=== PATIENT | male | born 1965 | race Caucasian/White ===

== ENCOUNTER 2016-07-10 13:04 | Emergency (ER) | payer SELFPAY ==
[~2016-07-10] VITALS: Ht 177.8 cm; Wt 65.0 kg
[2016-07-10 13:11] VITALS: BP 129/91; PULSE 95; RESP 16; TEMP 98.6; O2SAT 96
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
[2016-07-10] MEDS ORDERED: TETANUS/DIPHTHERIA TOXOID ADULT 0.5 ML VIAL IM ONE (13:30)
[2016-07-10 13:47] LABS: AUTOMATED NEUTROPHIL # 4.7 TH/MM3 (1.8-7.7); BASOPHIL % 0.4 % (0.0-2.0); EOSINOPHIL # 0.4 TH/MM3 (0-0.4); EOSINOPHIL % 3.7 % (0.0-4.0); HEMATOCRIT 37.9 % (39.0-51.0); HEMO FLAGS DIFF FINAL; LYMPH % 41.3 % (9.0-44.0); LYMPHOCYTE # 4.1 TH/MM3 (1.0-4.8); MEAN CELL VOLUME 83.8 FL (80.0-100.0); MEAN CORPUSCULAR HEMOGLOBIN 27.5 PG (27.0-34.0); MEAN CORPUSCULAR HGB CONC 32.8 % (32.0-36.0); MONO % 6.6 % (0.0-8.0); PLATELET COUNT 418 TH/MM3 (150-450); RED BLOOD COUNT 4.52 MIL/MM3 (4.50-5.90); RED CELL DISTRIBUTION WIDTH 16.3 % (11.6-17.2); WHITE BLOOD COUNT 9.8 TH/MM3 (4.0-11.0)
[2016-07-10] MEDS ORDERED: BUSP10TA PO (13:47)
[2016-07-10 14:00] LABS: ALT (GPT) 17 U/L (12-78); ANION GAP 11 MEQ/L (5-15); AST (GOT) 13 U/L (15-37); BICARBONATE 23.3 MEQ/L (21.0-32.0); BLOOD UREA NITROGEN 10 MG/DL (7-18); CHLORIDE 103 MEQ/L (98-107); GLOMERULAR FILTRATION RATE 112 ML/MIN (>89); POTASSIUM 3.8 MEQ/L (3.5-5.1); SODIUM (NA) 137 MEQ/L (136-145)
[2016-07-10 14:03] LABS: ALKALINE PHOSPHATASE 69 U/L (45-117); TOTAL BILIRUBIN ADULT 0.7 MG/DL (0.2-1.0)
[2016-07-10 14:50] VITALS: BP 130/89; PULSE 90; RESP 18; TEMP 98.1; O2SAT 97
[2016-07-10 17:56] VITALS: BP 101/66; PULSE 94; RESP 18; O2SAT 98
[2016-07-10 23:11] VITALS: BP 125/84; PULSE 99; RESP 18; O2SAT 100
[2016-07-11 02:00] VITALS: BP 135/95; PULSE 80; RESP 18; O2SAT 96
== END 2016-07-11 02:54 ==
LOC: NEDAMB 13:04 → NEPJ 07-11 02:54
DX: R45.851 Suicidal ideations (principal); I10 Essential (primary) hypertension; F10.129 Alcohol abuse with intoxication, unspecified
CPT/HCPCS: 80053; 80307; 80320; 85025; 99285

== ENCOUNTER 2016-09-30 20:24 | Inpatient (IN) | payer SELFPAY ==
[~2016-09-30] VITALS: Ht 180.3 cm; Wt 58.4 kg
[2016-09-30 19:54] VITALS: PULSE 81
[~2016-09-30 20:24] MED LIST: BUSP10TA PO
[2016-09-30 20:26] VITALS: BP 121/89; PULSE 93; RESP 16; TEMP 97.8; O2SAT 97
[2016-09-30] MEDS ORDERED: SODIUM CHLOR 0.9% 1000 ML INJ 1,000 ML IV SCH (22:33)
[2016-09-30] MEDS ORDERED: SODIUM CHLORIDE 0.9% FLUSH 10 ML FLUSH IV FLUSH PRN (22:45)
[2016-09-30] MEDS ORDERED: MORPHINE SULFATE 4 MG/ML INJ IV PUSH ONE (22:45)
[2016-09-30] MEDS ORDERED: ONDANSETRON HCL 4 MG/2 ML VIAL IVP ONE (22:45)
[2016-09-30 23:00] LABS: AUTOMATED NEUTROPHIL # 4.9 TH/MM3 (1.8-7.7); BASOPHIL % 0.1 % (0.0-2.0); EOSINOPHIL % 0.4 % (0.0-4.0); HEMATOCRIT 40.1 % (39.0-51.0); HEMO FLAGS DIFF FINAL; LYMPH % 23.5 % (9.0-44.0); LYMPHOCYTE # 1.7 TH/MM3 (1.0-4.8); MEAN CELL VOLUME 83.9 FL (80.0-100.0); MEAN CORPUSCULAR HEMOGLOBIN 28.5 PG (27.0-34.0); MEAN CORPUSCULAR HGB CONC 33.9 % (32.0-36.0); MONO % 8.6 % (0.0-8.0); NEUT % 67.4 % (16.0-70.0); PLATELET COUNT 236 TH/MM3 (150-450); RED BLOOD COUNT 4.78 MIL/MM3 (4.50-5.90); RED CELL DISTRIBUTION WIDTH 15.5 % (11.6-17.2); WHITE BLOOD COUNT 7.3 TH/MM3 (4.0-11.0)
--- NOTE | 2016-09-30 23:09 | PD ---
HPI Chief Complaint: GI Complaint Time Seen by Provider: 22:24 Travel History International Travel<30 days: No Contact w/Intl Traveler<30days: No Traveled to known affect area: No History of Present Illness HPI The patient is a 50-year-old male who presents to the emergency department for chills and perianal pain. The patient is a 2 day history of intermittent chills and sweats. He then developed some perianal pain with several episodes of leakage from the rectum. The patient denies any trauma to the perirectal area and denies any history of anal sex or rectal prolapse. The patient states the pain is burning in the perirectal area and is continuous leakage from the rectum. He does complain of chills but denies any outright fever. He does complain of mild nausea but denies any vomiting or anterior abdominal pain. Symptoms are moderate, there are no current alleviating or exacerbating factors. The patient denies any chronic medical problems, medications, states his only allergy is to penicillin. PFSH Past Medical History Anxiety: Yes Cardiovascular Problems: Yes (HTN) Diminished Hearing: No Hypertension: Yes Psychiatric: Yes (ANXIETY, OCD, SOCIAL DISORDER.) Past Surgical History Ear Surgery: Yes Social History Alcohol Use: Yes (REGULARLY 4 beers night. ) Tobacco Use: No Substance Use: Yes (BEER. CAN NOT SAY HOW MUCH DAILY) Allergies-Medications (Allergen,Severity, Reaction): Coded Allergies: Penicillin (Verified Allergy, Intermediate, 09/30/16) Reported Meds & Prescriptions Reported Meds & Active Scripts Active Reported Buspirone (Buspirone HCl) 10 Mg Tab 10 Mg PO DAILY Review of Systems Except as stated in HPI: all other systems reviewed are Neg General / Constitutional: Positive: Chills, No: Fever Cardiovascular: No: Chest Pain or Discomfort Respiratory: No: Shortness of Breath Gastrointestinal: Positive: Nausea, Diarrhea, Changes in Bowel Habits, Other ( perirectal pain is noted), No: Vomiting, Abdominal Pain Genitourinary: No: Dysuria Musculoskeletal: Positive: Myalgias Physical Exam Narrative GENERAL: Awake, alert, 50-year-old male appears his stated age and is in no acute respiratory distress. Mildly cachectic. SKIN: No rashes or lesions. HEAD: Atraumatic. Normocephalic. EYES: No injection or drainage. ENT: No nasal bleeding or discharge. Mucous membranes pink and moist. NECK: Trachea midline. No JVD. CARDIOVASCULAR: Regular rate and rhythm. No murmur appreciated. RESPIRATORY: No accessory muscle use. Clear to auscultation. Breath sounds equal bilaterally. GASTROINTESTINAL: Abdomen soft, non-tender, nondistended. No rebound tenderness. Rectal: Patient has a circumferential, edematous area that appears to prolapsed through the rectum, exquisitely tender to palpation, appears to be possible thrombosed hemorrhoid at the 3 o'clock position. Anal leakage noted through the opening, exquisitely tender to palpation. Unable to reduce. Rectal exam exquisitely tender, positive tone. MUSCULOSKELETAL: No obvious deformities. No clubbing. No cyanosis. No edema. NEUROLOGICAL: Awake and alert. No obvious cranial nerve deficits. Motor grossly within normal limits. Normal speech. PSYCHIATRIC: Appropriate mood and affect; insight and judgment normal. Data Data Last Documented VS Vital Signs Date Time Temp Pulse Resp B/P Pulse Ox O2 Delivery O2 Flow Rate FiO2 09/30/16 20:26 97.8 93 16 121/89 97 Orders Complete Blood Count With Diff (09/30/16 22:33) Comprehensive Metabolic Panel (09/30/16 22:33) Lactic Acid (09/30/16 22:33) Prothrombin Time / Inr (Pt) (09/30/16 22:33) Act Partial Throm Time (Ptt) (09/30/16 22:33) Iv Access Insert/Monitor (09/30/16 22:33) Ecg Monitoring (09/30/16 22:33) Oximetry (09/30/16 22:33) Morphine Inj (Morphine Inj) (09/30/16 22:45) Ondansetron Inj (Zofran Inj) (09/30/16 22:45) Sodium Chlor 0.9% 1000 Ml Inj (Ns 1000 M (09/30/16 22:33) Sodium Chloride 0.9% Flush (Ns Flush) (09/30/16 22:45) Ct Abd/Pel W Iv Contrast(Rout) (09/30/16 ) Iohexol 350 Inj (Omnipaque 350 Inj) (09/30/16 23:15) Ciprofloxacin 400 Mg Premix (Cipro 400 M (09/30/16 23:45) Metronidazole 500 Mg Inj (Flagyl 500 Mg (09/30/16 23:45) Blood Culture (09/30/16 23:35) Sodium Chlor 0.9% 1000 Ml Inj (Ns 1000 M (09/30/16 23:45) Admit To Inpatient (09/30/16 ) Vital Signs (Adult) Q4H (09/30/16 23:58) Activity Oob With Assistance (09/30/16 23:58) Intake + Output RUPESH.QSHIFT (09/30/16 23:58) Sodium Chlor 0.9% 1000 Ml Inj (Ns 1000 M (09/30/16 23:58) Sodium Chloride 0.9% Flush (Ns Flush) (10/01/16 00:00) Sodium Chloride 0.9% Flush (Ns Flush) (10/01/16 09:00) Ondansetron Inj (Zofran Inj) (10/01/16 00:00) Comprehensive Metabolic Panel (10/01/16 06:00) Complete Blood Count With Diff (10/01/16 06:00) Pt Request For Service (09/30/16 23:58) Case Management Consult (09/30/16 23:58) Scd Bilateral/Knee High RUPESH.BID (09/30/16 23:58) Oxycodone (Roxicodone) (10/01/16 00:00) Morphine Inj (Morphine Inj) (10/01/16 00:00) Oxycodone (Roxicodone) (10/01/16 00:00) Naloxone Inj (Narcan Inj) (10/01/16 00:00) Inpatient Certification (09/30/16 ) Buspirone (Buspar) (10/01/16 09:00) Diet Npo Except Meds (10/01/16 Breakfast) Consult Colorectal Surgery (10/01/16 ) Lactic Acid (10/01/16 02:00) Ciprofloxacin 400 Mg Premix (Cipro 400 M (10/01/16 12:00) Metronidazole 500 Mg Inj (Flagyl 500 Mg (10/01/16 06:00) Admit Order (Ed Use Only) (10/01/16 00:23) Labs Laboratory Tests Test 09/30/16 22:40 White Blood Count 7.3 TH/MM3 Red Blood Count 4.78 MIL/MM3 Hemoglobin 13.6 GM/DL Hematocrit 40.1 % Mean Corpuscular Volume 83.9 FL Mean Corpuscular Hemoglobin 28.5 PG Mean Corpuscular Hemoglobin 33.9 % Concent Red Cell Distribution Width 15.5 % Platelet Count 236 TH/MM3 Mean Platelet Volume 7.1 FL Neutrophils (%) (Auto) 67.4 % Lymphocytes (%) (Auto) 23.5 % Monocytes (%) (Auto) 8.6 % Eosinophils (%) (Auto) 0.4 % Basophils (%) (Auto) 0.1 % Neutrophils # (Auto) 4.9 TH/MM3 Lymphocytes # (Auto) 1.7 TH/MM3 Monocytes # (Auto) 0.6 TH/MM3 Eosinophils # (Auto) 0.0 TH/MM3 Basophils # (Auto) 0.0 TH/MM3 CBC Comment DIFF FINAL Differential Comment Prothrombin Time 9.2 SEC Prothromb Time International 0.8 RATIO Ratio Activated Partial 29.9 SEC Thromboplast Time Sodium Level 140 MEQ/L Potassium Level 4.1 MEQ/L Chloride Level 103 MEQ/L Carbon Dioxide Level 26.4 MEQ/L Anion Gap 11 MEQ/L Blood Urea Nitrogen 8 MG/DL Creatinine 0.75 MG/DL Estimat Glomerular Filtration 111 ML/MIN Rate Random Glucose 90 MG/DL Lactic Acid Level 3.6 mmol/L Calcium Level 8.7 MG/DL Total Bilirubin 0.5 MG/DL Aspartate Amino Transf 88 U/L (AST/SGOT) Alanine Aminotransferase 36 U/L (ALT/SGPT) Alkaline Phosphatase 83 U/L Total Protein 7.7 GM/DL Albumin 3.5 GM/DL [facility] Medical Decision Making Medical Screen Exam Complete: Yes Emergency Medical Condition: Yes Medical Record Reviewed: Yes Interpretation(s) CT the abdomen and pelvis reveals mild mural thickening of rectum with questionable mild perirectal inflammatory changes. No discrete abscess. Fatty liver. No acute findings within the remainder of the abdomen. Last Impressions Abdomen/Pelvis CT 09/30/16 0000 Signed Impressions: Service Date/Time: Friday, September 30, 2016 23:02 - CONCLUSION: 1. Mild mural thickening in the rectum with questionable mild perirectal inflammatory changes. No discrete abscess. 2. Fatty liver. No acute findings within the remainder of the abdomen. Bud Katz MD Laboratory Tests Test 09/30/16 22:40 White Blood Count 7.3 TH/MM3 Red Blood Count 4.78 MIL/MM3 Hemoglobin 13.6 GM/DL Hematocrit 40.1 % Mean Corpuscular Volume 83.9 FL Mean Corpuscular Hemoglobin 28.5 PG Mean Corpuscular Hemoglobin 33.9 % Concent Red Cell Distribution Width 15.5 % Platelet Count 236 TH/MM3 Mean Platelet Volume 7.1 FL Neutrophils (%) (Auto) 67.4 % Lymphocytes (%) (Auto) 23.5 % Monocytes (%) (Auto) 8.6 % Eosinophils (%) (Auto) 0.4 % Basophils (%) (Auto) 0.1 % Neutrophils # (Auto) 4.9 TH/MM3 Lymphocytes # (Auto) 1.7 TH/MM3 Monocytes # (Auto) 0.6 TH/MM3 Eosinophils # (Auto) 0.0 TH/MM3 Basophils # (Auto) 0.0 TH/MM3 CBC Comment DIFF FINAL Differential Comment Prothrombin Time 9.2 SEC Prothromb Time International 0.8 RATIO Ratio Activated Partial 29.9 SEC Thromboplast Time Sodium Level 140 MEQ/L Potassium Level 4.1 MEQ/L Chloride Level 103 MEQ/L Carbon Dioxide Level 26.4 MEQ/L Anion Gap 11 MEQ/L Blood Urea Nitrogen 8 MG/DL Creatinine 0.75 MG/DL Estimat Glomerular Filtration 111 ML/MIN Rate Random Glucose 90 MG/DL Lactic Acid Level 3.6 mmol/L Calcium Level 8.7 MG/DL Total Bilirubin 0.5 MG/DL Aspartate Amino Transf 88 U/L (AST/SGOT) Alanine Aminotransferase 36 U/L (ALT/SGPT) Alkaline Phosphatase 83 U/L Total Protein 7.7 GM/DL Albumin 3.5 GM/DL Differential Diagnosis Differential diagnosis includes rectal prolapse, prolapsed internal hemorrhoids , thrombosed external hemorrhoids, intussusception, perirectal abscess, pelvic floor insufficiency. Narrative Course IV was established, labs are drawn and sent, and the patient was placed on cardiac telemetry monitoring and continuous pulse oximetry monitoring. The patient was administered morphine, Zofran, and IV fluids. Colorectal surgery was not superintendent landfill operations tonight, therefore, discussed the patient with the on-call general surgeon, Dr. Hugo. CT of the abdomen and pelvis was ordered to rule out underlying pelvic pathology. It appears that colorectal surgery is on-call at 7 AM, Dr. Hernandez. We will evaluate lactic acid white count to rule out possible infarction. The patient's white count is normal, however, lactic acid 3.6. CT the abdomen and pelvis reveals mild mural thickening of the rectum with questionable mild perirectal inflammatory changes but no discrete abscess. The patient was administered another liter of IV fluids and Cipro/Flagyl intravenously. The patient will be admitted to the medical team and will need consultation with colorectal surgery tomorrow. The patient may have rectal mucosa last versus circumferential external hemorrhoid with thrombosis. The patient's lactic acid was elevated, will have IV fluids and will be covered with Cipro and Flagyl until evaluated by colorectal surgery. Physician Communication Physician Communication I discussed the patient with the on-call medical team who agrees with admission. Diagnosis Primary Impression: Rectal mucosa prolapse Additional Impression: Lactic acidosis Admitting Information Admitting Physician Requests: Admit Condition: Stable Jose Henderson MD Sep 30, 2016 23:09
[2016-09-30] MEDS ORDERED: IOHEXOL 350 MG/ML 10 ML VIAL (for RAD DIAG) IV ONE (23:15)
[2016-09-30 23:21] LABS: ALT (GPT) 36 U/L (12-78); ANION GAP 11 MEQ/L (5-15); AST (GOT) 88 U/L (15-37); BICARBONATE 26.4 MEQ/L (21.0-32.0); BLOOD UREA NITROGEN 8 MG/DL (7-18); CHLORIDE 103 MEQ/L (98-107); GLOMERULAR FILTRATION RATE 111 ML/MIN (>89); POTASSIUM 4.1 MEQ/L (3.5-5.1); SODIUM (NA) 140 MEQ/L (136-145)
[2016-09-30 23:24] LABS: ALKALINE PHOSPHATASE 83 U/L (45-117); TOTAL BILIRUBIN ADULT 0.5 MG/DL (0.2-1.0)
--- NOTE | 2016-09-30 23:29 | RADRPT ---
EXAM DATE/TIME: 09/30/2016 23:02 [facility] COMPARISON: No previous studies available for comparison. INDICATIONS : Abdomen and rectal pain past 3 days. IV CONTRAST: 80 cc Omnipaque 350 (iohexol) IV ORAL CONTRAST: No oral contrast ingested. RADIATION DOSE: 4.60 CTDIvol (mGy) MEDICAL HISTORY : Hypertension. SURGICAL HISTORY : None. ENCOUNTER: Initial ACUITY: 3 days PAIN SCALE: 10/10 LOCATION: Bilateral abdomen TECHNIQUE: Volumetric scanning of the abdomen and pelvis was performed. Using automated exposure control and ad justment of the mA and/or kV according to patient size, radiation dose was kept as low as reasonably achievable to obtain optimal diagnostic quality images. FINDINGS: Lung bases are clear except for minimal linear scarring. There is moderate diffuse fatty infiltration of the liver. Spleen, adrenals, kidneys and pancreas unr emarkable. No calcified gallstones or biliary ductal dilatation. There is mild atherosclerotic change in the aorta without aneurysm. No free fluid. No bowel obstructi on. No adenopathy. No acute bony abnormalities. Patient is reportedly having rectal pain. There is some mild mural thickening in the rectum. No discr ete abscess. CONCLUSION: 1. Mild mural thickening in the rectum with questionable mild perirectal inflammatory changes. No dis crete abscess. 2. Fatty liver. No acute findings within the remainder of the abdomen. Bud Katz MD on September 30, 2016 at 23:21 Board Certified Radiologist. This report was verified electronically.
[2016-09-30 23:31] LABS: APTT (PATIENT) 29.9 SEC (24.3-30.1); INTERNATIONAL NORMALIZED RATIO 0.8 RATIO; PROTHROMBIN TIME - PATIENT 9.2 SEC (9.8-11.6)
[2016-09-30] MEDS ORDERED: metroNIDAZOLE 500 MG INJ 100 ML IV ONE (23:45)
[2016-09-30] MEDS ORDERED: CIPROFLOXACIN 400 MG PREMIX 200 ML IV ONE (23:45)
[2016-09-30] MEDS ORDERED: SODIUM CHLOR 0.9% 1000 ML INJ 1,000 ML IV ONE (23:45)
[2016-10-01] MEDS ORDERED: NALOXONE HCL 0.4 MG/ML AMP IV PRN
[2016-10-01] MEDS ORDERED: SODIUM CHLORIDE 0.9% FLUSH 10 ML FLUSH IV FLUSH PRN
[2016-10-01] MEDS ORDERED: MORPHINE SULFATE 4 MG/ML INJ IV PRN
[2016-10-01] MEDS ORDERED: LORazepam 0.5 MG TAB PO ONE (01:00)
[2016-10-01 02:44] LABS: AUTOMATED NEUTROPHIL # 5.6 TH/MM3 (1.8-7.7); BASOPHIL % 0.2 % (0.0-2.0); EOSINOPHIL % 0.2 % (0.0-4.0); HEMATOCRIT 35.3 % (39.0-51.0); HEMO FLAGS DIFF FINAL; LYMPH % 34.2 % (9.0-44.0); LYMPHOCYTE # 3.4 TH/MM3 (1.0-4.8); MEAN CELL VOLUME 84.1 FL (80.0-100.0); MEAN CORPUSCULAR HEMOGLOBIN 28.1 PG (27.0-34.0); MEAN CORPUSCULAR HGB CONC 33.4 % (32.0-36.0); MONO % 8.5 % (0.0-8.0); NEUT % 56.9 % (16.0-70.0); PLATELET COUNT 211 TH/MM3 (150-450); RED CELL DISTRIBUTION WIDTH 15.1 % (11.6-17.2); WHITE BLOOD COUNT 9.9 TH/MM3 (4.0-11.0)
[2016-10-01] MEDS ORDERED: LORazepam 1 MG TAB PO PRN (02:45)
[2016-10-01] MEDS ORDERED: THIAMINE HCL 100 MG TAB PO ONE (02:45)
[2016-10-01] MEDS ORDERED: LORazepam 2 MG/ML VIAL IV PUSH PRN ×3 (02:45)
[2016-10-01] MEDS ORDERED: LORazepam 2 MG TAB PO PRN (02:45)
[2016-10-01] MEDS ORDERED: FLUMAZENIL 0.5 MG/5 ML VIAL IV PUSH PRN (02:45)
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
[2016-10-01 02:55] VITALS: BP 132/82; PULSE 73; RESP 18; TEMP 98.5; O2SAT 96
[2016-10-01 03:03] LABS: ALKALINE PHOSPHATASE 75 U/L (45-117); ALT (GPT) 31 U/L (12-78); ANION GAP 10 MEQ/L (5-15); AST (GOT) 77 U/L (15-37); BICARBONATE 24.2 MEQ/L (21.0-32.0); BLOOD UREA NITROGEN 6 MG/DL (7-18); CHLORIDE 103 MEQ/L (98-107); GLOMERULAR FILTRATION RATE 118 ML/MIN (>89); POTASSIUM 3.9 MEQ/L (3.5-5.1); SODIUM (NA) 137 MEQ/L (136-145); TOTAL BILIRUBIN ADULT 0.4 MG/DL (0.2-1.0)
[2016-10-01] MEDS: LORazepam 2 MG/ML VIAL IV PUSH PRN ×2 (03:11→08:56)
[2016-10-01] MEDS: SODIUM CHLOR 0.9% 1000 ML INJ 1,000 ML IV SCH ×3 (03:19→11:53)
[2016-10-01] MEDS: CEFEPIME INJ 2,000 MG in SODIUM CHLORIDE 0.9% INJ 100 ML IV SCH ×3 (04:39→20:48)
[2016-10-01] MEDS: metroNIDAZOLE 500 MG INJ 100 ML IV SCH ×3 (05:27→17:12)
[2016-10-01 08:01] VITALS: BP 136/95; PULSE 64; RESP 18; TEMP 97.9; O2SAT 95
[2016-10-01] MEDS: busPIRone HCL 10 MG TAB PO SCH (08:43)
[2016-10-01] MEDS: SODIUM CHLORIDE 0.9% FLUSH 10 ML FLUSH IV FLUSH SCH ×2 (08:44→20:47)
[2016-10-01] MEDS: THIAMINE HCL 100 MG TAB PO SCH (08:44)
[2016-10-01] MEDS ORDERED: CIPROFLOXACIN 400 MG PREMIX 200 ML IV SCH (12:00)
[2016-10-01 12:01] VITALS: BP 138/90; PULSE 66; RESP 18; TEMP 97.7; O2SAT 96
[2016-10-01 16:01] VITALS: BP 157/97; PULSE 67; RESP 18; TEMP 98.1; O2SAT 97
[2016-10-01 19:46] VITALS: BP 164/104; PULSE 63; RESP 16; TEMP 98.1; O2SAT 95
[2016-10-01] MEDS: ONDANSETRON HCL 4 MG/2 ML VIAL IVP PRN (20:52)
[2016-10-01 23:15] VITALS: BP 143/103; PULSE 75; RESP 16; TEMP 98.1; O2SAT 96
[2016-10-02] MEDS: metroNIDAZOLE 500 MG INJ 100 ML IV SCH ×3 (01:19→11:11)
[2016-10-02 04:13] VITALS: BP 161/106; PULSE 81; RESP 16; TEMP 98.6; O2SAT 97
[2016-10-02] MEDS: CEFEPIME INJ 2,000 MG in SODIUM CHLORIDE 0.9% INJ 100 ML IV SCH ×2 (05:03→12:27)
[2016-10-02] MEDS: ONDANSETRON HCL 4 MG/2 ML VIAL IVP PRN ×2 (05:07→11:08)
[2016-10-02] MEDS: SODIUM CHLOR 0.9% 1000 ML INJ 1,000 ML IV SCH (05:58)
[2016-10-02] MEDS: THIAMINE HCL 100 MG TAB PO SCH (07:50)
[2016-10-02] MEDS: busPIRone HCL 10 MG TAB PO SCH (07:50)
[2016-10-02 08:00] VITALS: BP 143/97; PULSE 62; RESP 18; TEMP 98.3; O2SAT 97
[2016-10-02] MEDS: SODIUM CHLORIDE 0.9% FLUSH 10 ML FLUSH IV FLUSH SCH (09:00)
[2016-10-02] MEDS ORDERED: VITA100T2 PO (10:25)
[2016-10-02] MEDS ORDERED: NORC5TAB PO (10:25)
[2016-10-02] MEDS ORDERED: LIDOCAINE HCL 1% 50 ML VIAL ONE (10:47)
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
--- NOTE | 2016-10-02 11:09 | HHI.PR ---
Subjective Remarks Follow-up for rectal pain. Patient seen with colorectal surgery, Dr. Hernandez. Patient has been having rectal pain since Thursday. States he normally has 2 bowel movements daily. He does strain of the stool. She denies any abdominal pain. He denies any previous abdominal surgery or colonoscopy. He denies any cancer history personally or in the family. He does have some nausea today after receiving morphine. He denies any vomiting, chest pain, shortness of breath. Objective Vitals Vital Signs Date Time Temp Pulse Resp B/P Pulse Ox O2 Delivery O2 Flow Rate FiO2 10/02/16 09:15 Room Air 10/02/16 08:00 98.3 62 18 143/97 97 10/02/16 04:13 98.6 81 16 161/106 97 10/01/16 23:15 98.1 75 16 143/103 96 10/01/16 20:00 Room Air 10/01/16 19:46 98.1 63 16 164/104 95 10/01/16 16:01 98.1 67 18 157/97 97 10/01/16 12:01 97.7 66 18 138/90 96 I/O 10/01/16 10/01/16 10/01/16 10/02/16 10/02/16 10/02/16 07:00 15:00 23:00 07:00 15:00 23:00 Intake Total 600 ml 0 ml 0 ml 0 ml Output Total 0 ml 800 ml 600 ml 2125 ml Balance 600 ml -800 ml -600 ml -2125 ml Intake Oral 0 ml 0 ml 0 ml 0 ml IV Total 600 ml Output Urine Total 0 ml 800 ml 600 ml 2125 ml # Bowel Movements 0 0 0 0 Result Diagram: 10/01/16 0229 10/01/16 0229 Imaging Last Impressions Abdomen/Pelvis CT 09/30/16 0000 Signed Impressions: Service Date/Time: Friday, September 30, 2016 23:02 - CONCLUSION: 1. Mild mural thickening in the rectum with questionable mild perirectal inflammatory changes. No discrete abscess. 2. Fatty liver. No acute findings within the remainder of the abdomen. Bud Katz MD Objective Remarks GENERAL: Well-developed well-nourished. In no acute distress. SKIN: Warm and dry. No lesions noted. HEENT: Normocephalic. Pupils equal and round. Mucous membranes pink and moist. CARDIOVASCULAR: Regular rate and rhythm. No murmur appreciated. RESPIRATORY: No accessory muscle use. Clear to auscultation. Breath sounds equal bilaterally. GASTROINTESTINAL: Abdomen soft, non-tender, nondistended. Bowel sounds x4. MUSCULOSKELETAL: No obvious deformities. No clubbing or cyanosis. No edema. NEUROLOGICAL: Awake and alert. No focal neurological deficits. Moves upper and lower extremities spontaneously. Normal speech. PSYCHIATRIC: Appropriate mood and affect; insight and judgment normal. A/P Problem List: (1) ETOH abuse ICD Code: F10.10 Status: Chronic (2) Thrombosed hemorrhoids ICD Code: K64.5 Status: Acute (3) Lactic acidosis ICD Code: E87.2 Status: Resolved Assessment and Plan 50-year-old male with history of depression, anxiety, insomnia, who presented with a three-day history of rectal pain Rectal pain: See and examined with colorectal surgery. Patient has thrombosed hemorrhoid which would explain symptoms and abnormal findings on pelvis CT scan. Colorectal surgery is planning on bedside thrombectomy today. [place] as needed for pain. Lactic acidosis: 3.6->4.6->0.9, resolved. Afebrile, no leukocytosis, blood cultures with NG x2 days. Doubt infectious etiology, no further need for antibiotics. Alcoholism. Fatty liver. Likely secondary to alcohol. -Slightly elevated AST, 88/77. Patient drinks at least 4 drinks per day. Thiamine. CIWA protocol. Depression. Chronic. Anxiety. Chronic. Insomnia. -Continue psychiatry follow-up as outpatient. Prophylaxis. SCDs. Written by Eliud Jarvis, acting as scribe for Dr. Erwin on 10/02/16 at 11:08. All or portions of this note were transcribed by yoli MOON. I, Dr. Toya Erwin personally performed the history, physical exam, and medical decision making; and confirmed the accuracy of the information in the transcribed note. Authenticated by Dr. Toya Erwin on 10/02/16 at 11:08. Discharge Planning Discharge later today after thrombectomy with colorectal surgery, discussed with Dr. Hernandez. Discharge patient to home Condition on discharge: Improved Heart healthy Diet as tolerated Regular activity Rx written: [place] Follow-up with primary care physician and colorectal surgery Eliud Jarvis Oct 02, 2016 11:09 Toya Erwin MD Oct 02, 2016 13:09
[2016-10-02 12:00] VITALS: BP 153/104; PULSE 62; RESP 20; TEMP 98.1; O2SAT 97
== END 2016-10-02 14:00 | disposition home or self-care (01) | DRG 394 ==
LOC: NEPB 20:24 → NEDA 10-01 00:24 → N04B 10-01 02:10
PROVIDERS: ADMIT Hospitalist; ATTEND Hospitalist
DX: K62.3 Rectal prolapse (principal); E87.2 Acidosis; K76.0 Fatty (change of) liver, not elsewhere classified; I10 Essential (primary) hypertension; F41.9 Anxiety disorder, unspecified; K64.5 Perianal venous thrombosis; F10.20 Alcohol dependence, uncomplicated; G47.00 Insomnia, unspecified
CPT/HCPCS: 10061; 74177; 80053; 83605; 85025; 85610; 85730; 87040; 96361; 96365; 96375; J0692; J0744; J2060; J2270; J2405; J7030; Q9967

== ENCOUNTER 2016-12-14 00:46 | Emergency (ER) | payer SELFPAY ==
[~2016-12-14 00:46] MED LIST changes: +NORC5TAB PO; +VITA100T2 PO
[2016-12-14 00:49] VITALS: BP 129/100; PULSE 91; RESP 16; TEMP 98.6; O2SAT 98
[2016-12-14] MEDS ORDERED: PROZ20CA11 PO (01:21)
--- NOTE | 2016-12-14 01:24 | PD ---
HPI Chief Complaint: Alcohol/Drug Intoxication Time Seen by Provider: 01:21 Travel History International Travel<30 days: No Contact w/Intl Traveler<30days: No Traveled to known affect area: No History of Present Illness HPI 51-year-old white male presents to emergency department by Geno ALAMO. The patient is intoxicated and is requesting substance abuse treatment at [facility]. The patient here is intoxicated. He denies any medical complaints. He denies any suicidal homicidal ideation. The patient admits to being homeless and an alcoholic. PFSH Past Medical History Autoimmune Disease: No Anxiety: Yes Depression: Yes Cancer: No Cardiovascular Problems: Yes (HTN) High Cholesterol: No Diabetes: No Diminished Hearing: No Genitourinary: No Hypertension: Yes Immune Disorder: No Musculoskeletal: Yes Psychiatric: Yes (ANXIETY, OCD, SOCIAL DISORDER.) Respiratory: No Immunizations Current: Yes Thyroid Disease: No Tetanus Vaccination: < 5 Years Past Surgical History Body Medical Devices: PLATES AND SCREWS IN THE NECK Ear Surgery: Yes (REPLACED EAR DRUM) Social History Alcohol Use: Yes (REGULARLY 4 beers night. ) Tobacco Use: Yes Substance Use: No Allergies-Medications (Allergen,Severity, Reaction): Coded Allergies: Penicillin (Verified Allergy, Intermediate, 12/14/16) Reported Meds & Prescriptions Reported Meds & Active Scripts Active Vitamin B-1 (Thiamine HCl) 100 Mg Tab 100 Mg PO DAILY [place] (Hydrocodone-Acetaminophen) 5-325 mg Tab 1 Tab PO Q6H PRN Reported Buspirone (Buspirone HCl) 10 Mg Tab 10 Mg PO DAILY Review of Systems ROS Limitations: Intoxication Except as stated in HPI: all other systems reviewed are Neg Physical Exam Narrative GENERAL: Well-nourished, well-developed patient. Smells of EtOH and appears intoxicated. SKIN: Warm and dry. HEAD: Normocephalic and atraumatic. EYES: No scleral icterus. No injection or drainage. ENT: No nasal drainage noted. Mucous membranes pink. Airway patent. NECK: Supple, trachea midline. Moves head freely without obvious discomfort. CARDIOVASCULAR: Regular rate and rhythm without murmurs, gallops, or rubs. RESPIRATORY: Breath sounds equal bilaterally. No accessory muscle use. GASTROINTESTINAL: Abdomen soft, non-tender, nondistended. EXTREMITIES: No cyanosis or edema. BACK: Nontender without obvious deformity. No CVA tenderness. NEURO: Patient is alert and oriented. no sensorimotor deficits. Nonfocal. Slurred speech. PSYCH: No delusions. No auditory or visual hallucinations. Data Data Last Documented VS Vital Signs Date Time Temp Pulse Resp B/P Pulse Ox O2 Delivery O2 Flow Rate FiO2 12/14/16 00:49 98.6 91 16 129/100 98 Room Air MDM Medical Decision Making Medical Screen Exam Complete: Yes Emergency Medical Condition: Yes Medical Record Reviewed: Yes Differential Diagnosis Differential diagnoses: Alcohol intoxication, substance abuse, electrolyte abnormality, malingering Narrative Course The patient is clinically intoxicated. He will be allowed to sleep it off here in the ER. Once the patient exhibits sobriety he will be allowed to leave and follow-up with [facility] for alcohol abuse. This is alcohol intoxication Diagnosis Primary Impression: Alcohol intoxication Qualified Code: F10.929 - Alcohol intoxication, with unspecified complication Additional Impression: Alcohol abuse Patient Instructions: General Instructions Additional Instructions: Rest. Increase fluids. Avoid alcohol. Avoid illegal substances. Follow-up with [facility] for detox. Do not operate a car or any heavy machinery under the influence of alcohol or drugs. Follow-up with a medical doctor this week. Return to the ER for emergencies Med/Other Pt SpecificInfo: No Meds Exist/No RX given Disposition: 01 DISCHARGE HOME Condition: Stable Bud Meredith Dec 14, 2016 01:24
== END 2016-12-14 06:39 | disposition home or self-care (01) ==
LOC: NEPD 00:46
DX: F10.929 Alcohol use, unspecified with intoxication, unspecified (principal); F10.10 Alcohol abuse, uncomplicated; I10 Essential (primary) hypertension; Z72.0 Tobacco use; Z86.59 Personal history of other mental and behavioral disorders; Z86.79 Personal history of other diseases of the circulatory system; Z87.39 Personal history of other diseases of the musculoskeletal system and connective tissue
CPT/HCPCS: 99282

== ENCOUNTER 2016-12-27 09:46 | Emergency (ER) | payer SELFPAY ==
[~2016-12-27] VITALS: Ht 182.9 cm; Wt 60.0 kg
[~2016-12-27 09:46] MED LIST changes: -BUSP10TA PO; -NORC5TAB PO; +PROZ20CA11 PO; -VITA100T2 PO
[2016-12-27 10:06] VITALS: BP 118/89; PULSE 90; RESP 18; TEMP 97.8; O2SAT 98
--- NOTE | 2016-12-27 10:37 | PD ---
HPI Chief Complaint: Psychiatric Symptoms Time Seen by Provider: 10:14 Travel History International Travel<30 days: No Contact w/Intl Traveler<30days: No Traveled to known affect area: No History of Present Illness HPI 51yo M with PMH of alcohol abuse presents to the ED as Miranda Chante. Pt apparently cut his left forearm and wanted to hurt himself. Pt has superficial abrasions on left forearm. States he cut himself with a knife today. Unknown tetanus. States he drank alcohol today and everyday. Denies any fall, chest pain, sob, n/v, abdominal pain, focal weakness or numbness. Pt has no other signs of trauma besides superficial cuts on his left forearm. PFSH Past Medical History Autoimmune Disease: No Anxiety: Yes Depression: Yes Cancer: No Cardiovascular Problems: Yes (HTN) High Cholesterol: No Diabetes: No Diminished Hearing: No Genitourinary: No Hypertension: Yes Immune Disorder: No Musculoskeletal: Yes Psychiatric: Yes (ANXIETY, OCD, SOCIAL DISORDER.) Respiratory: No Immunizations Current: Yes Thyroid Disease: No Past Surgical History Body Medical Devices: PLATES AND SCREWS IN THE NECK Ear Surgery: Yes (REPLACED EAR DRUM) Social History Alcohol Use: Yes (REGULARLY 4 beers night. ) Tobacco Use: Yes Substance Use: No Allergies-Medications (Allergen,Severity, Reaction): Coded Allergies: Penicillin (Verified Allergy, Intermediate, 12/14/16) Reported Meds & Prescriptions Reported Meds & Active Scripts Active No Active Prescriptions or Reported Medications Review of Systems Except as stated in HPI: all other systems reviewed are Neg Physical Exam Narrative GENERAL: 51yo M not in distress. SKIN: Focused skin assessment warm/dry. HEAD: Atraumatic. Normocephalic. EYES: Pupils equal and round at 3mm bilaterally. EOMI. No scleral icterus. No injection or drainage. ENT: No nasal bleeding or discharge. Mucous membranes pink and moist. NECK: Trachea midline. No JVD. CARDIOVASCULAR: Regular rate and rhythm. No murmur appreciated. RESPIRATORY: No accessory muscle use. Clear to auscultation. Breath sounds equal bilaterally. GASTROINTESTINAL: Abdomen soft, non-tender, nondistended. No rebound tenderness or guarding. MUSCULOSKELETAL: +Multiple superficial lacerations on volar aspect of left forearm. No active bleeding and repair is not needed. Soft compartment. FROM left elbow and wrist. Sensation intact. Radial pulse 2+. NEUROLOGICAL: Awake and alert. No obvious cranial nerve deficits. Motor grossly within normal limits. Normal speech. PSYCHIATRIC: Appropriate mood and affect; insight and judgment normal. Data Data Last Documented VS Vital Signs Date Time Temp Pulse Resp B/P Pulse Ox O2 Delivery O2 Flow Rate FiO2 12/27/16 10:06 97.8 90 18 118/89 98 Orders Complete Blood Count With Diff (12/27/16 10:14) Comprehensive Metabolic Panel (12/27/16 10:14) Psych Screen (12/27/16 10:14) Drug Screen, Random Urine (12/27/16 10:14) Alcohol (Ethanol) (12/27/16 10:14) Salicylates (Aspirin) (12/27/16 10:14) Tylenol (Acetaminophen) (12/27/16 10:14) Tetanus/Diphtheria Tox Adult (Tetanus/Di (12/27/16 10:45) Diet Regular Basic (12/27/16 Lunch) Labs Laboratory Tests Test 12/27/16 12/27/16 10:15 10:20 White Blood Count 6.3 TH/MM3 Red Blood Count 3.78 MIL/MM3 Hemoglobin 10.2 GM/DL Hematocrit 30.9 % Mean Corpuscular Volume 81.9 FL Mean Corpuscular Hemoglobin 27.0 PG Mean Corpuscular Hemoglobin 33.0 % Concent Red Cell Distribution Width 16.8 % Platelet Count 309 TH/MM3 Mean Platelet Volume 7.4 FL Neutrophils (%) (Auto) 37.8 % Lymphocytes (%) (Auto) 52.8 % Monocytes (%) (Auto) 7.1 % Eosinophils (%) (Auto) 2.1 % Basophils (%) (Auto) 0.2 % Neutrophils # (Auto) 2.4 TH/MM3 Lymphocytes # (Auto) 3.3 TH/MM3 Monocytes # (Auto) 0.5 TH/MM3 Eosinophils # (Auto) 0.1 TH/MM3 Basophils # (Auto) 0.0 TH/MM3 CBC Comment DIFF FINAL Differential Comment Sodium Level 144 MEQ/L Potassium Level 3.9 MEQ/L Chloride Level 112 MEQ/L Carbon Dioxide Level 21.1 MEQ/L Anion Gap 11 MEQ/L Blood Urea Nitrogen 8 MG/DL Creatinine 0.70 MG/DL Estimat Glomerular Filtration 119 ML/MIN Rate Random Glucose 86 MG/DL Calcium Level 8.2 MG/DL Total Bilirubin 0.3 MG/DL Aspartate Amino Transf 28 U/L (AST/SGOT) Alanine Aminotransferase 25 U/L (ALT/SGPT) Alkaline Phosphatase 58 U/L Total Protein 7.4 GM/DL Albumin 3.6 GM/DL Salicylates Level LESS THAN 1.7 MG/DL Acetaminophen Level LESS THAN 2.0 MCG/ML Ethyl Alcohol Level 393 MG/DL Urine Opiates Screen NEG Urine Barbiturates Screen NEG Urine Amphetamines Screen NEG Urine Benzodiazepines Screen NEG Urine Cocaine Screen NEG Urine Cannabinoids Screen NEG MDM Medical Decision Making Medical Screen Exam Complete: Yes Emergency Medical Condition: Yes Differential Diagnosis Alcohol abuse vs. depression vs. polysubstance abuse vs. suicidal ideation Narrative Course 51yo M with alcohol abuse here under [place] because he states he states he wants to hurt himself and cut his left forearm with a knife. Lacerations are very superficial and does not need repair. Labs reviewed, no leukocytosis. H/ H mildly decreased at 10.2/30.9. CMP unremarkable. Blood alcohol 393. Utox negative. Acetaminophen and salicylate negative. Pt is medically clear for psych evaluation. Diagnosis Primary Impression: Alcohol abuse Scripts No Active Prescriptions or Reported Meds Amrita Lott DO Dec 27, 2016 10:37
[2016-12-27] MEDS ORDERED: TETANUS/DIPHTHERIA TOXOID ADULT 0.5 ML VIAL IM ONE (10:45)
[2016-12-27 10:55] LABS: AUTOMATED NEUTROPHIL # 2.4 TH/MM3 (1.8-7.7); BASOPHIL % 0.2 % (0.0-2.0); EOSINOPHIL # 0.1 TH/MM3 (0-0.4); EOSINOPHIL % 2.1 % (0.0-4.0); HEMATOCRIT 30.9 % (39.0-51.0); HEMO FLAGS DIFF FINAL; LYMPH % 52.8 % (9.0-44.0); LYMPHOCYTE # 3.3 TH/MM3 (1.0-4.8); MEAN CELL VOLUME 81.9 FL (80.0-100.0); MONO % 7.1 % (0.0-8.0); NEUT % 37.8 % (16.0-70.0); PLATELET COUNT 309 TH/MM3 (150-450); RED BLOOD COUNT 3.78 MIL/MM3 (4.50-5.90); RED CELL DISTRIBUTION WIDTH 16.8 % (11.6-17.2); WHITE BLOOD COUNT 6.3 TH/MM3 (4.0-11.0)
[2016-12-27 11:04] LABS: AMPHETAMINE, URINE NEG (NEG); BARBITURATES, URINE NEG (NEG); COCAINE, URINE NEG (NEG)
[2016-12-27 11:12] LABS: ALT (GPT) 25 U/L (12-78); ANION GAP 11 MEQ/L (5-15); AST (GOT) 28 U/L (15-37); BICARBONATE 21.1 MEQ/L (21.0-32.0); BLOOD UREA NITROGEN 8 MG/DL (7-18); CHLORIDE 112 MEQ/L (98-107); GLOMERULAR FILTRATION RATE 119 ML/MIN (>89); POTASSIUM 3.9 MEQ/L (3.5-5.1); SODIUM (NA) 144 MEQ/L (136-145)
[2016-12-27 11:14] LABS: ALKALINE PHOSPHATASE 58 U/L (45-117); TOTAL BILIRUBIN ADULT 0.3 MG/DL (0.2-1.0)
[2016-12-27 11:35] LABS: ACETAMINOPHEN LESS THAN 2.0 MCG/ML (10.0-30.0)
[2016-12-27 16:17] VITALS: BP 95/57; PULSE 87; RESP 17; O2SAT 97
[2016-12-27] MEDS ORDERED: LORazepam 1 MG TAB PO PRN (17:30)
[2016-12-27] MEDS ORDERED: FLUMAZENIL 0.5 MG/5 ML VIAL IV PUSH PRN (17:30)
[2016-12-27] MEDS ORDERED: LORazepam 2 MG/ML VIAL IV PUSH PRN ×4 (17:30)
[2016-12-27] MEDS ORDERED: LORazepam 2 MG TAB PO PRN (17:30)
[2016-12-27 17:36] VITALS: BP 128/91; PULSE 91; RESP 18; TEMP 99.2; O2SAT 98
[2016-12-27 21:58] VITALS: BP 129/83; PULSE 94; RESP 17; O2SAT 98
[2016-12-28 02:15] VITALS: BP 138/96; PULSE 88; RESP 18; TEMP 98.1; O2SAT 95
== END 2016-12-28 03:52 ==
LOC: NEPC 09:46 → NEPJ 12-28 03:52
DX: F10.10 Alcohol abuse, uncomplicated (principal); S50.812A Abrasion of left forearm, initial encounter; F41.9 Anxiety disorder, unspecified; F32.9 Major depressive disorder, single episode, unspecified; I10 Essential (primary) hypertension; F42.9 Obsessive-compulsive disorder, unspecified; X78.1XXA Intentional self-harm by knife, initial encounter; Z72.0 Tobacco use; Z23 Encounter for immunization
CPT/HCPCS: 80053; 80307; 85025; 90471; 90714

== ENCOUNTER 2017-01-02 11:05 | Emergency (ER) | payer OTHER ==
[~2017-01-02] VITALS: Ht 167.6 cm; Wt 62.0 kg
[2017-01-02 11:08] VITALS: BP 102/67; PULSE 88; RESP 16; TEMP 98.8; O2SAT 96
[2017-01-02] MEDS ORDERED: SODIUM CHLORIDE 0.9% FLUSH 10 ML FLUSH IVF PRN (11:15)
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
[2017-01-02 11:28] VITALS: RESP 16; O2SAT 96
[2017-01-02 11:40] LABS: AUTOMATED NEUTROPHIL # 2.7 TH/MM3 (1.8-7.7); BASOPHIL % 0.3 % (0.0-2.0); EOSINOPHIL # 0.1 TH/MM3 (0-0.4); HEMATOCRIT 28.1 % (39.0-51.0); HEMO FLAGS DIFF FINAL; LYMPH % 49.6 % (9.0-44.0); LYMPHOCYTE # 3.3 TH/MM3 (1.0-4.8); MEAN CELL VOLUME 81.8 FL (80.0-100.0); MEAN CORPUSCULAR HEMOGLOBIN 26.2 PG (27.0-34.0); MONO % 7.6 % (0.0-8.0); NEUT % 40.5 % (16.0-70.0); PLATELET COUNT 291 TH/MM3 (150-450); RED BLOOD COUNT 3.44 MIL/MM3 (4.50-5.90); RED CELL DISTRIBUTION WIDTH 16.7 % (11.6-17.2); WHITE BLOOD COUNT 6.6 TH/MM3 (4.0-11.0)
[2017-01-02 11:57] LABS: BICARBONATE 20.2 MEQ/L (21.0-32.0); POTASSIUM 3.8 MEQ/L (3.5-5.1)
[2017-01-02 12:03] LABS: APTT (PATIENT) 24.5 SEC (24.3-30.1); INTERNATIONAL NORMALIZED RATIO 0.9 RATIO; PROTHROMBIN TIME - PATIENT 10.2 SEC (9.8-11.6)
[2017-01-02] MEDS ORDERED: IOHEXOL 350 MG/ML 10 ML VIAL (for RAD DIAG) IV ONE (12:57)
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
[2017-01-02 13:00] VITALS: BP 110/62; PULSE 84; RESP 16; O2SAT 97
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
[2017-01-02 15:00] VITALS: BP 96/60; PULSE 86; RESP 16; O2SAT 97
[2017-01-02 16:00] VITALS: BP 91/54; PULSE 89; RESP 16; O2SAT 95
== END 2017-01-02 19:11 | disposition home or self-care (01) ==
LOC: NEPE 11:05
DX: S00.81XA Abrasion of other part of head, initial encounter (principal); F10.10 Alcohol abuse, uncomplicated; M79.661 Pain in right lower leg; M79.662 Pain in left lower leg; F41.9 Anxiety disorder, unspecified; F32.9 Major depressive disorder, single episode, unspecified; I10 Essential (primary) hypertension; V03.19XA Pedestrian with other conveyance injured in collision with car, pick-up truck or van in traffic accident, initial encounter; Z72.0 Tobacco use
CPT/HCPCS: 70450; 71010; 72125; 74177; 80048; 85025; 85610; 85730; 86850; 86900; 86901; 99285; L0150; Q9967

== ENCOUNTER 2017-01-15 10:15 | Emergency (ER) | payer SELFPAY ==
[2017-01-15 10:20] VITALS: BP 128/89; PULSE 92; RESP 18; TEMP 98.3; O2SAT 100
[2017-01-15] MEDS ORDERED: CEPH-460 PO (11:06)
[2017-01-15] MEDS ORDERED: BACT800T5 PO (11:06)
--- NOTE | 2017-01-15 11:06 | PD ---
HPI Chief Complaint: Skin Problem Time Seen by Provider: 11:05 Travel History International Travel<30 days: No Contact w/Intl Traveler<30days: No Traveled to known affect area: No History of Present Illness HPI 51-year-old male with no significant medical history presents to the emergency department for evaluation of multiple scabs and lesions on his bilateral upper extremities. Patient is concerned he may have a skin infection. The lesions burn, itch, and are tender to touch. Denies any new exposures. No fever or chills. No new medications. Does not recall being bitten by anything. Patient has no other symptoms to report. PFSH Past Medical History Autoimmune Disease: No Anxiety: Yes Depression: Yes Cancer: No Cardiovascular Problems: Yes (HTN) High Cholesterol: No Diabetes: No Diminished Hearing: No Genitourinary: No Hypertension: Yes Immune Disorder: No Musculoskeletal: Yes Psychiatric: Yes (ANXIETY, OCD, SOCIAL DISORDER.) Respiratory: No Immunizations Current: Yes Thyroid Disease: No Past Surgical History Body Medical Devices: PLATES AND SCREWS IN THE NECK Ear Surgery: Yes (REPLACED EAR DRUM) Social History Alcohol Use: Yes (REGULARLY 4 beers night. ) Tobacco Use: Yes Substance Use: Yes Allergies-Medications (Allergen,Severity, Reaction): Coded Allergies: Penicillin (Verified Allergy, Intermediate, 01/15/17) Reported Meds & Prescriptions Reported Meds & Active Scripts Active Keflex (Cephalexin) 500 Mg Cap 500 Mg PO Q6H 5 Days Bactrim DS (Sulfamethoxazole-Trimethoprim) 800-160 Mg Tab 1 Tab PO BID Review of Systems Except as stated in HPI: all other systems reviewed are Neg Physical Exam Narrative GENERAL: Unkempt male patient, ambulatory and in no acute distress SKIN: Focused skin assessment warm/dry. Multiple scabbed lesions in varying sizes surrounded by a ring of erythema on the bilateral upper extremities. No induration or fluctuation. HEAD: Normocephalic. EYES: No scleral icterus. No injection or drainage. NECK: Supple, trachea midline. No JVD or lymphadenopathy. CARDIOVASCULAR: Regular rate and rhythm without murmurs, gallops, or rubs. RESPIRATORY: Breath sounds equal bilaterally. No accessory muscle use. MUSCULOSKELETAL: No cyanosis, or edema. Distal pulses are palpable. Cap refill within normal limits. BACK: Nontender without obvious deformity. No CVA tenderness. Data Data Last Documented VS Vital Signs Date Time Temp Pulse Resp B/P Pulse Ox O2 Delivery O2 Flow Rate FiO2 01/15/17 11:16 01/15/17 10:20 98.3 92 18 100 Room Air Orders Tetanus/Diphtheria Tox Adult (Tetanus/Di (01/15/17 11:15) MDM Medical Decision Making Medical Screen Exam Complete: Yes Emergency Medical Condition: Yes Medical Record Reviewed: Yes Differential Diagnosis Insect bite versus impetigo versus pustular lesions versus contact dermatitis Narrative Course 51-year-old male presents to emergency department for evaluation of multiple lesions on his bilateral extremity. Physical findings are consistent with a skin infection. Patient was started on oral antibiotics. He is encouraged to keep the areas clean and to not pick at them. He agrees to return immediately with any acute worsening symptoms. Diagnosis Primary Impression: Skin infection Additional Impression: Skin lesion, infected Referrals: Painter Helper Sign Primary Care Physician Patient Instructions: Acute Wound Care (GEN), General Instructions Additional Instructions: Keep the area clean and dry Wash with warm soapy water Follow-up with her primary care provider Bactrim is free at [facility]. Return immediately with any acute worsening of symptoms Med/Other Pt SpecificInfo: Prescription(s) given Scripts Cephalexin (Keflex)500 Mg [id number] Mg PO Q6H 5 Days Ref 0 Prov:Cherrie Finn 01/15/17 Sulfamethoxazole-Trimethoprim (Bactrim DS)800-160 Mg Tab1 Tab PO BID #20 TAB Ref 0 Prov:Cherrie Finn 01/15/17 Disposition: 01 DISCHARGE HOME Condition: Stable Cherrie Finn Jan 15, 2017 11:06
[2017-01-15] MEDS ORDERED: TETANUS/DIPHTHERIA TOXOID ADULT 0.5 ML VIAL IM ONE (11:15)
== END 2017-01-15 11:16 | disposition home or self-care (01) ==
LOC: NEPK 10:15
DX: L98.9 Disorder of the skin and subcutaneous tissue, unspecified (principal); F41.9 Anxiety disorder, unspecified; F32.9 Major depressive disorder, single episode, unspecified; I10 Essential (primary) hypertension; F42.9 Obsessive-compulsive disorder, unspecified; Z79.899 Other long term (current) drug therapy; Z88.0 Allergy status to penicillin; Z72.0 Tobacco use
CPT/HCPCS: 99284

== ENCOUNTER 2017-01-30 03:33 | Emergency (ER) | payer OTHER ==
[~2017-01-30] VITALS: Ht 167.6 cm; Wt 55.0 kg
[~2017-01-30 03:33] MED LIST changes: +BACT800T5 PO; +CEPH-460 PO; -PROZ20CA11 PO
[2017-01-30 03:46] VITALS: BP 114/91; PULSE 81; RESP 16; TEMP 98.4; O2SAT 97
--- NOTE | 2017-01-30 04:05 | PD ---
HPI Chief Complaint: Suicide Ideation/Attempt Time Seen by Provider: 03:54 Travel History International Travel<30 days: No Contact w/Intl Traveler<30days: No Traveled to known affect area: No History of Present Illness HPI Patient comes in under a Miranda act by police for making suicidal statements. Patient states he was feeling like hurting himself by running into traffic. Denies anything making this better or worse. Patient states he's been trying to get disability, but no one will help him. Patient denies any medical complaints at this time. Denies any chest pain, shortness of breath, fevers, abdominal pain, or headaches. PFSH Past Medical History Autoimmune Disease: No Anxiety: Yes Depression: Yes Cancer: No Cardiovascular Problems: Yes (HTN) High Cholesterol: No Diabetes: No Diminished Hearing: No Genitourinary: No Hypertension: Yes Immune Disorder: No Musculoskeletal: Yes Psychiatric: Yes (ANXIETY, OCD, SOCIAL DISORDER.) Respiratory: No Immunizations Current: Yes Thyroid Disease: No Tetanus Vaccination: < 5 Years Influenza Vaccination: No Past Surgical History Body Medical Devices: PLATES AND SCREWS IN THE NECK Ear Surgery: Yes (REPLACED EAR DRUM) Social History Alcohol Use: Yes (REGULARLY 4 beers night. ) Tobacco Use: Yes Substance Use: Yes Allergies-Medications (Allergen,Severity, Reaction): Coded Allergies: Penicillin (Verified Allergy, Intermediate, 01/30/17) Reported Meds & Prescriptions Reported Meds & Active Scripts Active No Active Prescriptions or Reported Medications Review of Systems ROS Limitations: Intoxication Except as stated in HPI: all other systems reviewed are Neg Physical Exam Exam Limitations: Intoxication Narrative GENERAL: Well-developed, well nourished, in no acute distress, and non-ill appearing. SKIN: Focused skin assessment warm and dry. Patient has multiple lesions noted on his upper and lower extremities he states these are from bug bites. Patient has a couple lesions that are questionable for impetigo. No signs of cellulitis , abscess, scabies, gangrene, or folliculitis. HEAD: Atraumatic. Normocephalic. EYES: Pupils equal and round. EOMI. No scleral icterus. No injection or drainage. ENT: No nasal bleeding or discharge. Mucous membranes pink and moist. NECK: Trachea midline. Supple. No nuclear rigidity. CARDIOVASCULAR: Regular rate and rhythm. No murmur appreciated. RESPIRATORY: No accessory muscle use. No respiratory distress. Clear to auscultation. Breath sounds equal bilaterally. MUSCULOSKELETAL: No obvious deformities. No clubbing. No cyanosis. No edema. Full range of motion. NEUROLOGICAL: Awake and alert. No obvious cranial nerve deficits. Motor grossly within normal limits. Normal speech. PSYCHIATRIC: Appropriate mood and affect. Data Data Last Documented VS Vital Signs Date Time Temp Pulse Resp B/P Pulse Ox O2 Delivery O2 Flow Rate FiO2 01/30/17 03:49 16 97 Room Air 01/30/17 03:46 98.4 81 114/91 Orders Complete Blood Count With Diff (01/30/17 03:53) Comprehensive Metabolic Panel (01/30/17 03:53) Psych Screen (01/30/17 03:53) Drug Screen, Random Urine (01/30/17 03:53) Alcohol (Ethanol) (01/30/17 03:53) Salicylates (Aspirin) (01/30/17 03:53) Tylenol (Acetaminophen) (01/30/17 03:53) Mupirocin 2% Oint (Bactroban 2% Oint) (01/30/17 09:00) Alcohol Withdrawal Asmt-Ciwa ONCE (01/30/17 05:06) Flumazenil Inj (Romazicon Inj) (01/30/17 05:15) Lorazepam (Ativan) (01/30/17 05:15) Lorazepam Inj (Ativan Inj) (01/30/17 05:15) Lorazepam (Ativan) (01/30/17 05:15) Lorazepam Inj (Ativan Inj) (01/30/17 05:15) Lorazepam Inj (Ativan Inj) (01/30/17 05:15) Lorazepam Inj (Ativan Inj) (01/30/17 05:15) Labs Laboratory Tests Test 01/30/17 01/30/17 04:00 04:30 White Blood Count 7.0 TH/MM3 Red Blood Count 3.99 MIL/MM3 Hemoglobin 10.5 GM/DL Hematocrit 31.6 % Mean Corpuscular Volume 79.1 FL Mean Corpuscular Hemoglobin 26.2 PG Mean Corpuscular Hemoglobin 33.2 % Concent Red Cell Distribution Width 18.3 % Platelet Count 280 TH/MM3 Mean Platelet Volume 7.0 FL Neutrophils (%) (Auto) 36.3 % Lymphocytes (%) (Auto) 53.3 % Monocytes (%) (Auto) 8.0 % Eosinophils (%) (Auto) 2.2 % Basophils (%) (Auto) 0.2 % Neutrophils # (Auto) 2.6 TH/MM3 Lymphocytes # (Auto) 3.7 TH/MM3 Monocytes # (Auto) 0.6 TH/MM3 Eosinophils # (Auto) 0.2 TH/MM3 Basophils # (Auto) 0.0 TH/MM3 CBC Comment DIFF FINAL Differential Comment Sodium Level 144 MEQ/L Potassium Level 3.7 MEQ/L Chloride Level 113 MEQ/L Carbon Dioxide Level 21.9 MEQ/L Anion Gap 9 MEQ/L Blood Urea Nitrogen 13 MG/DL Creatinine 0.76 MG/DL Estimat Glomerular Filtration 109 ML/MIN Rate Random Glucose 100 MG/DL Calcium Level 8.2 MG/DL Total Bilirubin 0.3 MG/DL Aspartate Amino Transf 18 U/L (AST/SGOT) Alanine Aminotransferase 16 U/L (ALT/SGPT) Alkaline Phosphatase 61 U/L Total Protein 7.2 GM/DL Albumin 3.2 GM/DL Salicylates Level LESS THAN 1.7 MG/DL Acetaminophen Level LESS THAN 2.0 MCG/ML Ethyl Alcohol Level 325 MG/DL Urine Opiates Screen NEG Urine Barbiturates Screen NEG Urine Amphetamines Screen NEG Urine Benzodiazepines Screen NEG Urine Cocaine Screen NEG Urine Cannabinoids Screen NEG MDM Medical Decision Making Medical Screen Exam Complete: Yes Emergency Medical Condition: Yes Differential Diagnosis Homicidal, suicidal, alcohol intoxication, substance abuse, impetigo, infected bug bites, cellulitis, other Narrative Course Patient was seen and examined. Labs were obtained and reviewed. Patient states he will protocol secondary to his chronic alcohol use help prevent withdrawal seizures. Bactroban was ordered for patient's lesions. Patient medically cleared for further treatment and evaluation by psych. Final disposition per psych. Diagnosis Primary Impression: Alcohol intoxication Qualified Code: F10.920 - Alcohol intoxication, uncomplicated Additional Impressions: Impetigo Medical clearance for psychiatric admission Scripts No Active Prescriptions or Reported Meds Condition: Stable Yovanny Demarco Jan 30, 2017 04:05
[2017-01-30 04:35] LABS: ANION GAP 9 MEQ/L (5-15); AST (GOT) 18 U/L (15-37); BICARBONATE 21.9 MEQ/L (21.0-32.0); BLOOD UREA NITROGEN 13 MG/DL (7-18); CHLORIDE 113 MEQ/L (98-107); GLOMERULAR FILTRATION RATE 109 ML/MIN (>89); POTASSIUM 3.7 MEQ/L (3.5-5.1); SODIUM (NA) 144 MEQ/L (136-145)
[2017-01-30 04:38] LABS: ALKALINE PHOSPHATASE 61 U/L (45-117); ALT (GPT) 16 U/L (12-78); AUTOMATED NEUTROPHIL # 2.6 TH/MM3 (1.8-7.7); BASOPHIL % 0.2 % (0.0-2.0); EOSINOPHIL # 0.2 TH/MM3 (0-0.4); EOSINOPHIL % 2.2 % (0.0-4.0); HEMATOCRIT 31.6 % (39.0-51.0); HEMO FLAGS DIFF FINAL; LYMPH % 53.3 % (9.0-44.0); LYMPHOCYTE # 3.7 TH/MM3 (1.0-4.8); MEAN CELL VOLUME 79.1 FL (80.0-100.0); MEAN CORPUSCULAR HEMOGLOBIN 26.2 PG (27.0-34.0); MEAN CORPUSCULAR HGB CONC 33.2 % (32.0-36.0); NEUT % 36.3 % (16.0-70.0); PLATELET COUNT 280 TH/MM3 (150-450); RED BLOOD COUNT 3.99 MIL/MM3 (4.50-5.90); RED CELL DISTRIBUTION WIDTH 18.3 % (11.6-17.2); TOTAL BILIRUBIN ADULT 0.3 MG/DL (0.2-1.0)
[2017-01-30 04:52] LABS: AMPHETAMINE, URINE NEG (NEG); BARBITURATES, URINE NEG (NEG); COCAINE, URINE NEG (NEG)
[2017-01-30 04:52] LABS: ACETAMINOPHEN LESS THAN 2.0 MCG/ML (10.0-30.0)
[2017-01-30] MEDS ORDERED: LORazepam 2 MG/ML VIAL IV PUSH PRN ×4 (05:15)
[2017-01-30] MEDS ORDERED: FLUMAZENIL 0.5 MG/5 ML VIAL IV PUSH PRN (05:15)
[2017-01-30] MEDS ORDERED: LORazepam 2 MG TAB PO PRN (05:15)
[2017-01-30] MEDS ORDERED: LORazepam 1 MG TAB PO PRN (05:15)
[2017-01-30 08:04] VITALS: BP 97/66; PULSE 84; RESP 16; O2SAT 98
[2017-01-30] MEDS ORDERED: MUPIROCIN 2% OINT 22 GM TUBE TOPICAL SCH (09:00)
[2017-01-30 10:26] VITALS: BP 96/65; PULSE 104; RESP 18; TEMP 97.6; O2SAT 97
[2017-01-30 12:09] VITALS: PULSE 98; RESP 20
[2017-01-30 12:10] VITALS: BP 96/65; PULSE 98; RESP 18; O2SAT 98
[2017-01-30 13:06] VITALS: BP 104/72; TEMP 98.2
--- NOTE | 2017-01-30 15:44 | PD ---
History of Present Illness Chief Complaint: Suicide Ideation/Attempt Time Seen by Provider: 12:30 Travel History International Travel<30 Days: No Contact w/Intl Traveler<30days: No Known affected area: No Legal Status Legal Status: Miranda Act Miranda Act Signed By: Geno Delong History of Present Illness: History of Present Illness HPI Patient is a 51 year old male with reported hx of depression and record history of alcohol abuse who comes in under a Miranda act initiated by police . The report alleges that the patient was observed walking in front of vehicles he wanted to . he appears to have consumed alcohol and stated he was off his medication. screaming he wanted to ". Denies anything making this better or worse. Patient states he's been trying to get disability, but no one will help him. Patient presented to Ed with BAl of 325 and no other substances in his toxicology screen. Patient was monitored in secure environment and he presented no behavioral concerns and no suicidality. He did present medication seeking behaviors and requested Ativan by name several times. EMR is reviewed. has been evaluated in ED for alcohol related complaints multiple times. he has one visit as a BA for suicidal ideation in context of alcohol intoxication. Patient is seen with nurse Langley. He is clinically sober at this time. Speech is clear and logical and he presents no indiction of withdrawal symptoms. His speech is clear and logical. There is no deb, no psychosis and no suicidal or homicidal ideation. He states that he does not drink every day " only 4 to 5 times a week or when I have money". he sates he has been drinking since age 19 years and has clinical lab technologist being sober. PFSH Past Medical History Autoimmune Disease: No Anxiety: Yes Depression: Yes Cancer: No Cardiovascular Problems: Yes (HTN) High Cholesterol: No Diabetes: No Diminished Hearing: No Genitourinary: No Hypertension: Yes Immune Disorder: No Musculoskeletal: Yes Psychiatric: Yes (ANXIETY, OCD, SOCIAL DISORDER.) Respiratory: No Immunizations Current: Yes Thyroid Disease: No Tetanus Vaccination: < 5 Years Influenza Vaccination: No Past Surgical History Body Medical Devices: PLATES AND SCREWS IN THE NECK Ear Surgery: Yes (REPLACED EAR DRUM) Psychiatric History Psychiatric History Hx Psychiatric Treatment: HX AT [facility]. has not been in tx for several months. No hx of inpatietn tretametn Hx of self mutilation but no hx of suicide attempt. History of Inpatient Treatment: Yes Guns or firearms in home: No Social History Born in [place]. never . No children. Unemployed. Homeless Hx Alcohol Use: Yes (REGULARLY 4 beers night. ) Hx Tobacco Use: Yes Hx Substance Use: Yes Substance Use Type: Alcohol Other Substances Used: DENIES HX OF WITHDRAWAL SYMPTOMS Hx of Substance Use Treatment: Yes Family Psychiatric History Negative Allergies-Medications (Allergen,Severity, Reaction): Coded Allergies: Penicillin (Verified Allergy, Intermediate, 01/30/17) Reported Meds & Prescriptions Reported Meds & Active Scripts Active No Active Prescriptions or Reported Medications Review of Systems Except as stated in HPI: all other systems reviewed are Neg Exam Alert: Yes [place]: Person (ox4) Mood: Calm Affect: Appropriate Speech: Clear, Logical Eye Contact: Normal Memory Intact: Comment (No impairmetn) Hallucinations: Other (Negative) Delusions: No Suicidal: Ideation (Negative) Homicidal: Ideation (Negative) Insight/Judgement Poor. Not impaired. MDM Medical Decision Making Medical Record Reviewed: Yes Assessment/Plan Patient is a 51 year old male with reported hx of depression and record history of alcohol abuse who comes in under a Miranda act initiated by police . The report alleges that the patient was observed walking in front of vehicles he wanted to . he appears to have consumed alcohol and stated he was off his medication. screaming he wanted to ". Denies anything making this better or worse. Patient states he's been trying to get disability, but no one will help him. Patient presented to Ed with BAl of 325 and no other substances in his toxicology screen. Patient was monitored in secure environment and he presented no behavioral concerns and no suicidality. He did present medication seeking behaviors and requested Ativan by name several times. Patient is at this time not presenting any criteria for inpatient psychiatric treatment and does not meet criteria for BA.He is clinically sober at this time and presents no cognitive impairment. he is counseled on abstinence. Folow up with [facility] BA. Orders Complete Blood Count With Diff (01/30/17 03:53) Comprehensive Metabolic Panel (01/30/17 03:53) Psych Screen (01/30/17 03:53) Drug Screen, Random Urine (01/30/17 03:53) Alcohol (Ethanol) (01/30/17 03:53) Salicylates (Aspirin) (01/30/17 03:53) Tylenol (Acetaminophen) (01/30/17 03:53) Mupirocin 2% Oint (Bactroban 2% Oint) (01/30/17 09:00) Alcohol Withdrawal Asmt-Ciwa ONCE (01/30/17 05:06) Flumazenil Inj (Romazicon Inj) (01/30/17 05:15) Lorazepam (Ativan) (01/30/17 05:15) Lorazepam Inj (Ativan Inj) (01/30/17 05:15) Lorazepam (Ativan) (01/30/17 05:15) Lorazepam Inj (Ativan Inj) (01/30/17 05:15) Lorazepam Inj (Ativan Inj) (01/30/17 05:15) Lorazepam Inj (Ativan Inj) (01/30/17 05:15) Diet Regular Basic (01/30/17 Breakfast) Results Vital Signs Date Time Temp Pulse Resp B/P Pulse Ox O2 Delivery O2 Flow Rate FiO2 01/30/17 13:06 98.2 100 20 104/72 98 01/30/17 12:10 98 18 96/65 98 Room Air 01/30/17 12:09 98 20 01/30/17 10:26 97.6 104 18 96/65 97 01/30/17 08:04 84 16 97/66 98 Room Air 01/30/17 03:49 16 97 Room Air 01/30/17 03:49 16 01/30/17 03:46 98.4 81 16 114/91 97 Laboratory Tests Test 01/30/17 01/30/17 04:00 04:30 White Blood Count 7.0 Red Blood Count 3.99 Hemoglobin 10.5 Hematocrit 31.6 Mean Corpuscular Volume 79.1 Mean Corpuscular Hemoglobin 26.2 Mean Corpuscular Hemoglobin 33.2 Concent Red Cell Distribution Width 18.3 Platelet Count 280 Mean Platelet Volume 7.0 Neutrophils (%) (Auto) 36.3 Lymphocytes (%) (Auto) 53.3 Monocytes (%) (Auto) 8.0 Eosinophils (%) (Auto) 2.2 Basophils (%) (Auto) 0.2 Neutrophils # (Auto) 2.6 Lymphocytes # (Auto) 3.7 Monocytes # (Auto) 0.6 Eosinophils # (Auto) 0.2 Basophils # (Auto) 0.0 CBC Comment DIFF FINAL Differential Comment Sodium Level 144 Potassium Level 3.7 Chloride Level 113 Carbon Dioxide Level 21.9 Anion Gap 9 Blood Urea Nitrogen 13 Creatinine 0.76 Estimat Glomerular Filtration 109 Rate Random Glucose 100 Calcium Level 8.2 Total Bilirubin 0.3 Aspartate Amino Transf 18 (AST/SGOT) Alanine Aminotransferase 16 (ALT/SGPT) Alkaline Phosphatase 61 Total Protein 7.2 Albumin 3.2 Salicylates Level LESS THAN 1.7 Acetaminophen Level LESS THAN 2.0 Ethyl Alcohol Level 325 Urine Opiates Screen NEG Urine Barbiturates Screen NEG Urine Amphetamines Screen NEG Urine Benzodiazepines Screen NEG Urine Cocaine Screen NEG Urine Cannabinoids Screen NEG Diagnosis Primary Impression: Alcohol dependence with acute alcoholic intoxication Psychiatrically Cleared: Yes Departure Forms: Tests/Procedures Patient Instructions: General Instructions, Alcohol Intoxication (ED), Abuse of Alcohol (ED), Medical Clearance for Psychiatric Care (ED), Alcohol Dependence (ED) Additional Instructions: DISCHARGE HOME FOLLOW-UP AT [facility], BE THERE AT 7:30 IT IS A FIRST COME FIRST SERVED BASIS STOP DRINKING RETURN TO ED FOR WORSENING PROBLEMS Med/ Other Pt Specific Info: No Meds Exist/No RX given Prescriptions No Active Prescriptions or Reported Meds Disposition: 01 DISCHARGE HOME Condition: Stable Yamilet Kemp Jose PURCELL Jan 30, 2017 15:44
== END 2017-01-30 13:19 | disposition home or self-care (01) ==
LOC: NEPD 03:33 → NEPJ 13:19
DX: F10.229 Alcohol dependence with intoxication, unspecified (principal); L01.00 Impetigo, unspecified; Y90.8 Blood alcohol level of 240 mg/100 ml or more; Z72.0 Tobacco use
CPT/HCPCS: 80053; 80307; 85025; 99283

== ENCOUNTER 2017-02-22 23:23 | Emergency (ER) | payer OTHER ==
[~2017-02-22] VITALS: Ht 177.8 cm; Wt 59.0 kg
[2017-02-22 23:36] VITALS: BP 123/88; PULSE 92; RESP 16; TEMP 98.3; O2SAT 97
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
[2017-02-23] MEDS ORDERED: THIAMINE INJ 100 MG in SODIUM CHLORIDE 0.9% INJ 100 ML IV ONE ×2
[2017-02-23 00:38] LABS: AUTOMATED NEUTROPHIL # 2.4 TH/MM3 (1.8-7.7); BASOPHIL % 0.4 % (0.0-2.0); EOSINOPHIL # 0.2 TH/MM3 (0-0.4); EOSINOPHIL % 2.3 % (0.0-4.0); HEMATOCRIT 31.5 % (39.0-51.0); HEMO FLAGS DIFF FINAL; LYMPH % 53.5 % (9.0-44.0); LYMPHOCYTE # 3.8 TH/MM3 (1.0-4.8); MEAN CELL VOLUME 76.6 FL (80.0-100.0); MEAN CORPUSCULAR HEMOGLOBIN 24.4 PG (27.0-34.0); MEAN CORPUSCULAR HGB CONC 31.8 % (32.0-36.0); MONO % 9.3 % (0.0-8.0); NEUT % 34.5 % (16.0-70.0); PLATELET COUNT 403 TH/MM3 (150-450); RED BLOOD COUNT 4.11 MIL/MM3 (4.50-5.90); RED CELL DISTRIBUTION WIDTH 19.4 % (11.6-17.2)
[2017-02-23 00:47] LABS: APTT (PATIENT) 29.9 SEC (24.3-30.1); PROTHROMBIN TIME - PATIENT 11.3 SEC (9.8-11.6)
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
[2017-02-23 00:52] LABS: BICARBONATE 24.2 MEQ/L (21.0-32.0); POTASSIUM 3.8 MEQ/L (3.5-5.1)
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
[2017-02-23 06:00] VITALS: BP 120/80
== END 2017-02-23 06:00 | disposition home or self-care (01) ==
LOC: NEPD 23:23 → NEDAMB 02-23 06:00
DX: Z02.89 Encounter for other administrative examinations (principal); F10.920 Alcohol use, unspecified with intoxication, uncomplicated; I10 Essential (primary) hypertension; F41.9 Anxiety disorder, unspecified
CPT/HCPCS: 70450; 72125; 80048; 80307; 85025; 85610; 85730; 96374; 99285; J3411

== ENCOUNTER 2017-03-16 14:53 | Inpatient (IN) | payer SELFPAY ==
[~2017-03-16] VITALS: Ht 177.8 cm; Wt 60.6 kg
[2017-03-16 15:09] VITALS: BP 123/93; PULSE 120; RESP 18; O2SAT 98
[2017-03-16 15:17] VITALS: BP 123/93; PULSE 120; RESP 18; O2SAT 98
--- NOTE | 2017-03-16 15:23 | PD ---
HPI Chief Complaint: Dizziness Time Seen by Provider: 15:15 Travel History International Travel<30 days: No Contact w/Intl Traveler<30days: No Traveled to known affect area: No History of Present Illness HPI This patient complains of feeling dizzy and lightheaded. He is a local homeless alcoholic. He becomes very often to the ER. Symptoms are of mild to moderate severity. No syncope or headache or chest pain. Duration one day. No alleviating factors PFSH Past Medical History Autoimmune Disease: No Anxiety: Yes Depression: Yes Cancer: No Cardiovascular Problems: Yes (HTN) High Cholesterol: No Diabetes: No Diminished Hearing: No Genitourinary: No Hypertension: Yes Immune Disorder: No Musculoskeletal: Yes Psychiatric: Yes (ANXIETY, OCD, SOCIAL DISORDER.) Respiratory: No Immunizations Current: Yes Thyroid Disease: No Tetanus Vaccination: < 5 Years Influenza Vaccination: No ?: Not Past Surgical History Body Medical Devices: PLATES AND SCREWS IN THE NECK Ear Surgery: Yes (REPLACED EAR DRUM) Social History Alcohol Use: Yes (REGULARLY 4 beers night. ) Tobacco Use: No Substance Use: No Allergies-Medications (Allergen,Severity, Reaction): Coded Allergies: penicillin G (Unverified Allergy, Intermediate, 02/22/17) Reported Meds & Prescriptions Reported Meds & Active Scripts Active No Active Prescriptions or Reported Medications Review of Systems General / Constitutional: No: Fever Eyes: No: Visual changes HENT: Positive: Lightheadedness, No: Headaches Cardiovascular: No: Chest Pain or Discomfort Respiratory: No: Shortness of Breath Gastrointestinal: No: Abdominal Pain Genitourinary: No: Dysuria Musculoskeletal: No: Pain Skin: No Rash Neurologic: Positive: Dizziness, No: Weakness Psychiatric: Positive: Substance Abuse, No: Depression Endocrine: No: Polydipsia Hematologic/Lymphatic: No: Easy Bruising Physical Exam Narrative GENERAL: Disheveled well-developed patient in no apparent distress. SKIN: Focused skin assessment reveals no rash and nodules. Skin is Warm and dry. HEAD: Atraumatic. Normocephalic. EYES: Pupils equal and round. No scleral icterus. No injection or drainage. ENT: No nasal bleeding or discharge. Mucous membranes pink and moist. NECK: Trachea midline. No JVD. CARDIOVASCULAR: Regular rate and rhythm. No murmur appreciated. RESPIRATORY: No accessory muscle use. Clear to auscultation. Breath sounds equal bilaterally. GASTROINTESTINAL: Abdomen soft, non-tender, nondistended. Hepatic and splenic margins not palpable. MUSCULOSKELETAL: No obvious deformities. No clubbing. No cyanosis. No edema. NEUROLOGICAL: Awake and alert. No obvious cranial nerve deficits. Motor grossly within normal limits. Normal speech. PSYCHIATRIC: Appropriate mood and affect; insight and judgment poor . Data Data Last Documented VS Vital Signs Date Time Temp Pulse Resp B/P (MAP) Pulse Ox O2 Delivery O2 Flow Rate FiO2 03/16/17 15:17 120 18 123/93 (103) 98 Room Air Orders Orders Alcohol (Ethanol) (03/16/17 15:20) Complete Blood Count With Diff (03/16/17 15:20) Basic Metabolic Panel (Bmp) (03/16/17 15:20) Admit Order (Ed Use Only) (03/16/17 17:54) Labs Laboratory Tests Test 03/16/17 15:25 White Blood Count 8.5 TH/MM3 Red Blood Count 2.77 MIL/MM3 Hemoglobin 6.9 GM/DL Hematocrit 21.6 % Mean Corpuscular Volume 77.9 FL Mean Corpuscular Hemoglobin 24.8 PG Mean Corpuscular Hemoglobin Concent 31.9 % Red Cell Distribution Width 18.5 % Platelet Count 275 TH/MM3 Mean Platelet Volume 7.3 FL Neutrophils (%) (Auto) 82.4 % Lymphocytes (%) (Auto) 12.7 % Monocytes (%) (Auto) 4.6 % Eosinophils (%) (Auto) 0.1 % Basophils (%) (Auto) 0.2 % Neutrophils # (Auto) 7.0 TH/MM3 Lymphocytes # (Auto) 1.1 TH/MM3 Monocytes # (Auto) 0.4 TH/MM3 Eosinophils # (Auto) 0.0 TH/MM3 Basophils # (Auto) 0.0 TH/MM3 CBC Comment DIFF FINAL Differential Comment Blood Urea Nitrogen 38 MG/DL Creatinine 0.84 MG/DL Random Glucose 156 MG/DL Calcium Level 8.0 MG/DL Sodium Level 139 MEQ/L Potassium Level 3.8 MEQ/L Chloride Level 106 MEQ/L Carbon Dioxide Level 23.0 MEQ/L Anion Gap 10 MEQ/L Estimat Glomerular Filtration Rate 97 ML/MIN Ethyl Alcohol Level LESS THAN 3 MG/DL MDM Medical Decision Making Medical Screen Exam Complete: Yes Emergency Medical Condition: Yes Medical Record Reviewed: Yes Differential Diagnosis Alcohol intoxication, alcohol withdrawal, malingering, dehydration Narrative Course I have reviewed the patient's electronic medical record. He is a frequent visitor for alcohol abuse IV placed He received normal saline IV in route by paramedics He is tachycardic with normal blood pressure CBC shows hemoglobin is 6.9. Last month his hemoglobin was 10 Metabolic profile shows elevated BUN otherwise normal Alcohol level is negative This patient has symptomatic anemia He's had 2 days of melena and rectal exam confirms GI bleed Given his GI bleed and symptomatic anemia tachycardia he will require admission for monitoring and blood transfusion I reviewed with hospitalist who will admit Diagnosis Primary Impression: GI bleed Qualified Codes: K92.2 - Gastrointestinal hemorrhage, unspecified Additional Impressions: Symptomatic anemia Alcoholism Admitting Information Admitting Physician Requests: Admit Scripts No Active Prescriptions or Reported Meds Tavares Marquez MD Mar 16, 2017 15:23
[2017-03-16 15:57] LABS: BASOPHIL % 0.2 % (0.0-2.0); EOSINOPHIL % 0.1 % (0.0-4.0); HEMATOCRIT 21.6 % (39.0-51.0); LYMPH % 12.7 % (9.0-44.0); LYMPHOCYTE # 1.1 TH/MM3 (1.0-4.8); MEAN CELL VOLUME 77.9 FL (80.0-100.0); MEAN CORPUSCULAR HEMOGLOBIN 24.8 PG (27.0-34.0); MEAN CORPUSCULAR HGB CONC 31.9 % (32.0-36.0); MONO % 4.6 % (0.0-8.0); NEUT % 82.4 % (16.0-70.0); PLATELET COUNT 275 TH/MM3 (150-450); RED BLOOD COUNT 2.77 MIL/MM3 (4.50-5.90); RED CELL DISTRIBUTION WIDTH 18.5 % (11.6-17.2); WHITE BLOOD COUNT 8.5 TH/MM3 (4.0-11.0)
[2017-03-16 16:03] LABS: HEMO FLAGS DIFF FINAL
[2017-03-16 16:36] LABS: ANION GAP 10 MEQ/L (5-15); BLOOD UREA NITROGEN 38 MG/DL (7-18); CHLORIDE 106 MEQ/L (98-107); GLOMERULAR FILTRATION RATE 97 ML/MIN (>89); POTASSIUM 3.8 MEQ/L (3.5-5.1); SODIUM (NA) 139 MEQ/L (136-145)
[2017-03-16 16:44] LABS: ALCOHOL LESS THAN 3 MG/DL (0-5)
[2017-03-16] MEDS ORDERED: SODIUM CHLORIDE 0.9% FLUSH 10 ML FLUSH IV FLUSH PRN (18:15)
[2017-03-16] MEDS ORDERED: LORazepam 2 MG TAB PO PRN (18:15)
[2017-03-16] MEDS ORDERED: ACETAMINOPHEN 325 MG TAB PO PRN ×2 (18:15)
[2017-03-16] MEDS ORDERED: LORazepam 2 MG/ML VIAL IV PUSH PRN ×2 (18:15)
[2017-03-16] MEDS ORDERED: NALOXONE HCL 0.4 MG/ML AMP IV PRN (18:15)
[2017-03-16] MEDS ORDERED: ONDANSETRON HCL 4 MG/2 ML VIAL IVP PRN (18:15)
[2017-03-16] MEDS ORDERED: LORazepam 1 MG TAB PO PRN (18:15)
[2017-03-16] MEDS ORDERED: FLUMAZENIL 0.5 MG/5 ML VIAL IV PUSH PRN (18:15)
--- NOTE | 2017-03-16 18:18 | HHI.HP ---
[facility] No Primary Care Physician Admission Diagnosis gi bleed, symptomatic anemia,alcoholism Diagnoses: Chief Complaint: Weakness/dizziness Travel History International Travel<30 Days: No Contact w/Intl Traveler <30 Da: No Traveled to Known Affected Are: No History of Present Illness The patient is a 51-year-old male with a past medical history of depression, hypertension and alcohol abuse who is presenting to the hospital with dizziness and weakness. He says he checked himself to a [facility] for the [facility] a few days ago and he started to develop symptoms of weakness and dizziness fair. He said sometimes when he walks he has to be carried to get places. When he stands up he feels lightheaded and that he might pass out. He denies any loss of consciousness. The patient says that he has been having palpitations. He says when he gets up to walk he gets severe palpitations that really bother him. He does endorse seeing black stools recently but has not seen any obvious blood. He has not been vomiting but has been gagging intermittently. He does have a history of alcohol abuse and has not had a drink for 3 days because that is when he checked himself into the [facility]. He is starting to feel a little shaky at this time. He denies ever having alcohol withdrawal seizures. He denies any history of bleeding ulcers. Review of Systems Except as stated in HPI: all other systems reviewed are Neg Past Family Social History Past Medical History Depression HTN Thrombosed external hemorrhoid Alcohol abuse Past Surgical History Back and neck surgery Eardrum surgery unilaterally Allergies: Coded Allergies: penicillin G (Unverified Allergy, Intermediate, 02/22/17) Active Ordered Medications Current Medications Medications (Trade) Dose Ordered Sig/Ting Route Start Time Stop Time Status Last Admin (Protonix Inj) 40 mg Q12H IV PUSH 03/16/17 18:15 UNV (Romazicon Inj) 0.2 mg Q1M PRN IV PUSH 03/16/17 18:15 (Ativan) 1 mg Q4H PRN PO 03/16/17 18:15 (Ativan) 2 mg Q2H PRN PO 03/16/17 18:15 (Ativan Inj) 2 mg Q1H PRN IV PUSH 03/16/17 18:15 (Ativan Inj) 2 mg Q15M PRN IV PUSH 03/16/17 18:15 Sodium Chloride 1,000 ml @ 150 mls/hr Q6H40M IV 03/16/17 18:10 UNV (NS Flush) 2 ml UNSCH PRN IV FLUSH 03/16/17 18:15 UNV (NS Flush) 2 ml BID IV FLUSH 03/16/17 21:00 UNV (Tylenol) 650 mg Q4H PRN PO 03/16/17 18:15 UNV (Zofran Inj) 4 mg Q6H PRN IVP 03/16/17 18:15 UNV (Tylenol) 650 mg Q6H PRN PO 03/16/17 18:15 UNV (Percocet 5-325 Mg) 1 tab Q6H PRN PO 03/16/17 18:15 UNV (Narcan Inj) 0.4 mg UNSCH PRN IV 03/16/17 18:15 (Letitia-Colace) 1 tab BID PO 03/16/17 21:00 UNV Family History CAD in mother Social History The patient is homeless. He drinks up to two 4 packs daily. He denies smoking or illicit drugs. Physical Exam Vital Signs Vital Signs Date Time Temp Pulse Resp B/P (MAP) Pulse Ox O2 Delivery O2 Flow Rate FiO2 03/16/17 15:17 120 18 123/93 (103) 98 Room Air 03/16/17 15:17 120 18 98 Room Air 03/16/17 15:09 120 18 123/93 (103) 98 Physical Exam GENERAL: This is a well-nourished, well-developed patient, in no apparent distress. SKIN: No rashes, ecchymoses or lesions. Cool and dry. Pale. HEAD: Atraumatic. Normocephalic. No temporal or scalp tenderness. EYES: Pupils equal round and reactive. Extraocular motions intact. No scleral icterus. No injection or drainage. ENT: Nose without bleeding, purulent drainage or septal hematoma. Throat without erythema, tonsillar hypertrophy or exudate. Uvula midline. Airway patent. NECK: Trachea midline. No JVD or lymphadenopathy. Supple, nontender, no meningeal signs. CARDIOVASCULAR: Tachycardic without murmurs, gallops, or rubs. RESPIRATORY: Clear to auscultation. Breath sounds equal bilaterally. No wheezes , rales, or rhonchi. GASTROINTESTINAL: Abdomen soft, non-tender, nondistended. No hepato-splenomegaly , or palpable masses. No guarding. MUSCULOSKELETAL: Extremities without clubbing, cyanosis, or edema. No joint tenderness, effusion, or edema noted. NEUROLOGICAL: Awake and alert. Cranial nerves II through XII intact. Motor and sensory grossly within normal limits. Five out of 5 muscle strength in all muscle groups. Normal speech. PSYCH: Mood and affect appropriate. Laboratory Laboratory Tests Test 03/16/17 15:25 White Blood Count 8.5 Red Blood Count 2.77 Hemoglobin 6.9 Hematocrit 21.6 Mean Corpuscular Volume 77.9 Mean Corpuscular Hemoglobin 24.8 Mean Corpuscular Hemoglobin Concent 31.9 Red Cell Distribution Width 18.5 Platelet Count 275 Mean Platelet Volume 7.3 Neutrophils (%) (Auto) 82.4 Lymphocytes (%) (Auto) 12.7 Monocytes (%) (Auto) 4.6 Eosinophils (%) (Auto) 0.1 Basophils (%) (Auto) 0.2 Neutrophils # (Auto) 7.0 Lymphocytes # (Auto) 1.1 Monocytes # (Auto) 0.4 Eosinophils # (Auto) 0.0 Basophils # (Auto) 0.0 CBC Comment DIFF FINAL Differential Comment Blood Urea Nitrogen 38 Creatinine 0.84 Random Glucose 156 Calcium Level 8.0 Sodium Level 139 Potassium Level 3.8 Chloride Level 106 Carbon Dioxide Level 23.0 Anion Gap 10 Estimat Glomerular Filtration Rate 97 Ethyl Alcohol Level LESS THAN 3 Result Diagram: 03/16/17 1525 03/16/17 1525 Caprini VTE Risk Assessment Caprini VTE Risk Assessment: No/Low Risk (score <= 1) Caprini Risk Assessment Model Point Value = 1 Point Value = 2 Point Value = 3 Point Value = 5 Age 41-60 Minor surgery BMI > 25 kg/m2 Swollen legs Varicose veins or History of unexplained or recurrent spontaneous Oral contraceptives or hormone replacement Sepsis (< 1 month) Serious lung disease, including pneumonia (< 1 month) Abnormal pulmonary function Acute myocardial infarction Congestive heart failure (< 1 month) History of inflammatory bowel disease Medical patient at bed rest Age 61-74 Arthroscopic surgery Major open surgery (> 45 min) Laparoscopic surgery (> 45 min) Malignancy Confined to bed (> 72 hours) Immobilizing plaster cast Central venous access Age >= 75 History of VTE Family history of VTE Factor V Leiden Prothrombin [id number] Lupus anticoagulant Anticardiolipin antibodies Elevated serum homocysteine Heparin-induced thrombocytopenia Other congenital or acquired thrombophilia Stroke (< 1 month) Elective arthroplasty Hip, pelvis, or leg fracture Acute spinal cord injury (< 1 month) Prophylaxis Regimen Total Risk Factor Score Risk Level Prophylaxis Regimen 0-1 Low Early ambulation 2 Moderate Order ONE of the following: *Sequential Compression Device (SCD) *Heparin 5000 units SQ BID 3-4 Higher Order ONE of the following medications: *Heparin 5000 units SQ TID *Enoxaparin/Lovenox 40 mg SQ daily (WT < 150 kg, CrCl > 30 mL/min) *Enoxaparin/Lovenox 30 mg SQ daily (WT < 150 kg, CrCl > 10-29 mL/min) *Enoxaparin/Lovenox 30 mg SQ BID (WT < 150 kg, CrCl > 30 mL/min) AND/OR *Sequential Compression Device (SCD) 5 or more Highest Order ONE of the following medications: *Heparin 5000 units SQ TID (Preferred with Epidurals) *Enoxaparin/Lovenox 40 mg SQ daily (WT < 150 kg, CrCl > 30 mL/min) *Enoxaparin/Lovenox 30 mg SQ daily (WT < 150 kg, CrCl > 10-29 mL/min) *Enoxaparin/Lovenox 30 mg SQ BID (WT < 150 kg, CrCl > 30 mL/min) AND *Sequential Compression Device (SCD) Assessment and Plan Assessment and Plan Acute GIB The patient presented with a hemoglobin of 6.9. He has been experiencing weakness, palpitations and dizziness over the past few days. Rectal exam did demonstrate occult blood. - 2 units red blood cells stat. - Follow CBC and transfuse as needed. - Protonix 40 mg IV twice a day. - IV fluids. - Consult gastroenterology. Alcohol withdrawal The patient's last week was about 3 days prior to admission. He is starting to feel shaky. - CIWA protocol. - Multivitamin, folate and thiamine. - Seizure precautions. - Cessation instruction. Tachycardia Secondary to above. - Treatment as above. - Check an EKG. Hypoglycemia Possibly a stress reaction. - Will check a hemoglobin A1c. PPx: SCDs Code Status Full Discussed Condition With Pt, Dr. Marquez Physician Certification 2 Midnight Certification Type: Admission for Inpatient Services Order for Inpatient Services The services are ordered in accordance with Medicare regulations or non- Medicare payer requirements, as applicable. In the case of services not specified as inpatient-only, they are appropriately provided as inpatient services in accordance with the 2-midnight benchmark. Estimated LOS (days): 2 days is the estimated time the patient will need to remain in the hospital, assuming treatment plan goals are met and no additional complications. Post-Hospital Plan: Home Corey Richards DO Mar 16, 2017 18:18
[2017-03-16] MEDS: PANTOPRAZOLE SODIUM 40 MG VIAL IV PUSH SCH (18:24)
[2017-03-16] MEDS: SODIUM CHLOR 0.9% 1000 ML INJ 1,000 ML IV SCH (18:24)
[2017-03-16] MEDS: SODIUM CHLORIDE 0.9% FLUSH 10 ML FLUSH IV FLUSH SCH (21:00)
[2017-03-16] MEDS: DOCUSATE SODIUM 50 MG/SENNA 8.6 MG TAB PO SCH (21:00)
[2017-03-16 23:37] VITALS: PULSE 97; RESP 20; TEMP 98.9; O2SAT 95
[2017-03-16 23:51] VITALS: BP 133/88; PULSE 107; RESP 18; TEMP 98.9; O2SAT 95
[2017-03-17] VITALS (12 sets, daily range): BP systolic 110–133; BP diastolic 78–97; PULSE 82–99; RESP 16–20; TEMP 98.1–99.6; O2SAT 95–100
[2017-03-17] MEDS: SODIUM CHLOR 0.9% 1000 ML INJ 1,000 ML IV SCH ×4 (00:50→21:21)
[2017-03-17 08:00] LABS: ANION GAP 9 MEQ/L (5-15); AST (GOT) 15 U/L (15-37); BICARBONATE 21.7 MEQ/L (21.0-32.0); BLOOD UREA NITROGEN 30 MG/DL (7-18); CHLORIDE 111 MEQ/L (98-107); GLOMERULAR FILTRATION RATE 112 ML/MIN (>89); POTASSIUM 3.5 MEQ/L (3.5-5.1); SODIUM (NA) 142 MEQ/L (136-145)
[2017-03-17 08:01] LABS: ALT (GPT) 14 U/L (12-78)
[2017-03-17 08:03] LABS: ALKALINE PHOSPHATASE 46 U/L (45-117); TOTAL BILIRUBIN ADULT 1.7 MG/DL (0.2-1.0)
[2017-03-17] MEDS: THIAMINE HCL 100 MG TAB PO SCH (09:42)
[2017-03-17] MEDS: FOLIC ACID 1 MG TAB PO SCH (09:42)
[2017-03-17] MEDS: MULTIVITAMIN TAB PO SCH (09:42)
[2017-03-17] MEDS: PANTOPRAZOLE SODIUM 40 MG VIAL IV PUSH SCH ×2 (09:42→21:20)
[2017-03-17] MEDS: SODIUM CHLORIDE 0.9% FLUSH 10 ML FLUSH IV FLUSH SCH ×2 (09:44→21:20)
[2017-03-17] MEDS: DOCUSATE SODIUM 50 MG/SENNA 8.6 MG TAB PO SCH ×2 (09:44→21:20)
[2017-03-17] MEDS ORDERED: INFLUENZA VIRUS VACCINE (QUADRIVALENT) 0.5 ML SYR IM ONE (10:00)
[2017-03-17] MEDS ORDERED: PNEUMOCOCCAL POLYVALENT INJ 25 MCG/0.5 ML SYR IM ONE (10:00)
--- NOTE | 2017-03-17 10:01 | PD.CONS ---
HPI History of Present Illness This is a 51 year old male who presented to the ER for evaluation of shortness of breath, racing heart, severe generalized weakness, and dizziness. He reports that his symptoms began a few days ago. He reports that he checked in at a [facility] and was having generalized weakness, but states that this progressively worsened over a day or two to the point where he could not get up and walk and felt as though he would pass out if he stood up. He has associated nausea without vomiting. He denies any heartburn, reflux, abdominal pain, constipation, or hematochezia. He is having diarrhea with black tarry stools. He denies any history of stomach ulcers. He was told in the past that he had liver disease, although he cannot recall if it was liver cirrhosis or something else. He typically 4-8 beers almost daily. He reports that he had a colonoscopy here several years ago and had polyps removed. (Azeb Chavez) PFSH Past Medical History Depression HTN Thrombosed external hemorrhoid Alcohol abuse Hx liver disease Colon polyps Past Surgical History Back and neck surgery Eardrum surgery unilaterally Colonoscopy (Azeb Chavez) Coded Allergies: penicillin G (Unverified Allergy, Intermediate, 02/22/17) Medications Allergies Coded Allergies Type Severity Reaction Last Updated Verified penicillin G Allergy Intermediate 02/22/17 No Active Scripts Medications Dose Route/Sig Max Daily Dose Days Date Category No Active Prescriptions or Reported Medications Rx Family History CAD in mother Social History The patient is homeless. He drinks up to two 4 packs daily. He denies smoking or illicit drugs. (Azeb Chavez) Review of Systems Constitutional: COMPLAINS OF: Fatigue, Chills, Dizziness, Change in appetite, DENIES: Fever, Weight loss Respiratory: COMPLAINS OF: Cough Cardiovascular: COMPLAINS OF: Palpitations, DENIES: Chest pain Gastrointestinal: COMPLAINS OF: Black stools, Diarrhea, Nausea, DENIES: Abdominal pain, Bloody stools, Constipation, Vomiting, Heartburn, Hematemesis Musculoskeletal: COMPLAINS OF: Back pain Integumentary: DENIES: Jaundice Hematologic/lymphatic: COMPLAINS OF: Bruising Neurologic: DENIES: Headache Psychiatric: DENIES: Confusion (Azeb Chavez) GI Exam Vitals I&O Vital Signs Date Time Temp Pulse Resp B/P (MAP) Pulse Ox O2 Delivery O2 Flow Rate FiO2 03/17/17 07:43 99.6 86 16 130/78 95 03/17/17 07:27 98.3 88 16 124/92 (103) 99 03/17/17 06:41 99.3 98 16 130/78 95 03/17/17 04:34 99.1 99 16 130/78 95 03/17/17 04:23 99.2 98 16 128/78 95 03/17/17 01:44 99.1 98 16 130/86 95 03/17/17 00:50 98.8 16 126/80 95 03/16/17 23:51 98.9 107 18 133/88 95 03/16/17 23:37 98.9 97 20 95 03/16/17 15:17 120 18 123/93 (103) 98 Room Air 03/16/17 15:17 120 18 98 Room Air 03/16/17 15:09 120 18 123/93 (103) 98 I/O 03/16/17 03/16/17 03/16/17 03/17/17 03/17/17 03/17/17 07:00 15:00 23:00 07:00 15:00 23:00 Intake Total 200 ml 625 ml 800 ml Balance 200 ml 625 ml 800 ml Intake Oral 200 ml 200 ml Packed Cells 250 ml 250 ml Blood Product IV Normal Saline Flush 375 ml 350 ml Laboratory Test 03/16/17 15:25 03/17/17 06:35 White Blood Count 8.5 TH/MM3 Red Blood Count 2.77 MIL/MM3 Hemoglobin 6.9 GM/DL Hematocrit 21.6 % Mean Corpuscular Volume 77.9 FL Mean Corpuscular Hemoglobin 24.8 PG Mean Corpuscular Hemoglobin Concent 31.9 % Red Cell Distribution Width 18.5 % Platelet Count 275 TH/MM3 Mean Platelet Volume 7.3 FL Neutrophils (%) (Auto) 82.4 % Lymphocytes (%) (Auto) 12.7 % Monocytes (%) (Auto) 4.6 % Eosinophils (%) (Auto) 0.1 % Basophils (%) (Auto) 0.2 % Neutrophils # (Auto) 7.0 TH/MM3 Lymphocytes # (Auto) 1.1 TH/MM3 Monocytes # (Auto) 0.4 TH/MM3 Eosinophils # (Auto) 0.0 TH/MM3 Basophils # (Auto) 0.0 TH/MM3 CBC Comment DIFF FINAL Differential Comment Blood Urea Nitrogen 38 MG/DL 30 MG/DL Creatinine 0.84 MG/DL 0.74 MG/DL Random Glucose 156 MG/DL 100 MG/DL Calcium Level 8.0 MG/DL 8.3 MG/DL Sodium Level 139 MEQ/L 142 MEQ/L Potassium Level 3.8 MEQ/L 3.5 MEQ/L Chloride Level 106 MEQ/L 111 MEQ/L Carbon Dioxide Level 23.0 MEQ/L 21.7 MEQ/L Anion Gap 10 MEQ/L 9 MEQ/L Estimat Glomerular Filtration Rate 97 ML/MIN 112 ML/MIN Ethyl Alcohol Level LESS THAN 3 MG/DL Total Protein 5.8 GM/DL Albumin 2.6 GM/DL Alkaline Phosphatase 46 U/L Aspartate Amino Transf (AST/SGOT) 15 U/L Alanine Aminotransferase (ALT/SGPT) 14 U/L Total Bilirubin 1.7 MG/DL Physical Examination HEENT: Pupils round and reactive to light; normocephalic; atraumatic; no jaundice. Throat is clear. NECK: Neck is supple, no JVD, no lymphadenopathy. CHEST: Chest is clear to auscultation and percussion. CARDIAC: Regular rate and rhythm with no murmur gallop or rubs. ABDOMEN: Soft, nondistended, nontender; no hepatosplenomegaly; bowel sounds are present in all four quadrants. EXTREMITIES: No clubbing, cyanosis, or edema. SKIN: Normal; no rash; no jaundice. 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 (Azeb Chavez) Assessment and Plan Plan ASSESSMENT: - GIB, Melena. Hx etoh abuse and hx of vague liver disease (pt unsure if this is cirrhosis or something else). Came to hospital for generalized weakness, racing heart, dizziness, found to have severe anemia. Pt reports nausea without vomiting. Protonix with BID dosing. EGD with possible band ligation today. - Anemia, acute blood loss. HH 6.9/19.2. - Elevated LFTs. T. Bilirubin 1.7, AST 15, ALT 14, Alk Phosph 46. RUQ us. - ETOH abuse 4-8 beers daily. DT precautions per attending. PLAN: - Plan for egd with possible band ligation today - Obtain consents - NPO - Protonix 40mg IV BID dosing - Monitor HH - Transfuse as necessary - RUQ US - Hepatitis panel - Supportive care - Further recommendations to follow based on results of above - PT seen and examined by Dr. Faustin and myself and this note is written on her behalf (Azeb Chavez) Physician Comments seen, examined agree with above (Griselda Faustin MD) Azeb Chavez Mar 17, 2017 10:00 Griselda Faustin MD Mar 17, 2017 19:31
[2017-03-17] MEDS ORDERED: POTASSIUM CHLORIDE 25 MEQ EFFERVESCENT TAB PO ONE (10:15)
[2017-03-17 10:57] LABS: HEMOGLOBIN A1a 1.6 %; HEMOGLOBIN A1b 1.8 %; HEMOGLOBIN Ao 83.7 %; HEMOGLOBIN LA1C 2.4 %; HEMOGLOBIN P3 3.8 %
--- NOTE | 2017-03-17 11:04 | HHI.PR ---
Subjective Remarks The pt was awaiting EGD. He was reading a consent form. He said he was doing OK. Discussed with nursing. Objective Vitals Vital Signs Date Time Temp Pulse Resp B/P (MAP) Pulse Ox O2 Delivery O2 Flow Rate FiO2 03/17/17 07:43 99.6 86 16 130/78 95 03/17/17 07:27 98.3 88 16 124/92 (103) 99 03/17/17 06:41 99.3 98 16 130/78 95 03/17/17 04:34 99.1 99 16 130/78 95 03/17/17 04:23 99.2 98 16 128/78 95 03/17/17 01:44 99.1 98 16 130/86 95 03/17/17 00:50 98.8 16 126/80 95 03/16/17 23:51 98.9 107 18 133/88 95 03/16/17 23:37 98.9 97 20 95 03/16/17 15:17 120 18 123/93 (103) 98 Room Air 03/16/17 15:17 120 18 98 Room Air 03/16/17 15:09 120 18 123/93 (103) 98 I/O 03/16/17 03/16/17 03/16/17 03/17/17 03/17/17 03/17/17 07:00 15:00 23:00 07:00 15:00 23:00 Intake Total 200 ml 625 ml 800 ml Balance 200 ml 625 ml 800 ml Intake Oral 200 ml 200 ml Packed Cells 250 ml 250 ml Blood Product IV Normal Saline Flush 375 ml 350 ml Result Diagram: 03/16/17 1525 03/17/17 0635 Objective Remarks GENERAL: This is a well-nourished, well-developed patient, in no apparent distress. SKIN: No rashes, ecchymoses or lesions. Cool and dry. Color improved. HEAD: Atraumatic. Normocephalic. No temporal or scalp tenderness. EYES: Pupils equal round and reactive. Extraocular motions intact. No scleral icterus. No injection or drainage. ENT: Nose without bleeding, purulent drainage or septal hematoma. Throat without erythema, tonsillar hypertrophy or exudate. Uvula midline. Airway patent. NECK: Trachea midline. No JVD or lymphadenopathy. Supple, nontender, no meningeal signs. CARDIOVASCULAR: Tachycardic without murmurs, gallops, or rubs. RESPIRATORY: Clear to auscultation. Breath sounds equal bilaterally. No wheezes , rales, or rhonchi. GASTROINTESTINAL: Abdomen soft, non-tender, nondistended. No hepato-splenomegaly , or palpable masses. No guarding. MUSCULOSKELETAL: Extremities without clubbing, cyanosis, or edema. No joint tenderness, effusion, or edema noted. NEUROLOGICAL: Awake and alert. Cranial nerves II through XII intact. Motor and sensory grossly within normal limits. Five out of 5 muscle strength in all muscle groups. Normal speech. PSYCH: Flattened affect. Medications and IVs Current Medications Medications (Trade) Dose Ordered Sig/Ting Route Start Time Stop Time Status Last Admin (Protonix Inj) 40 mg Q12H IV PUSH 03/16/17 18:15 03/17/17 09:42 (Romazicon Inj) 0.2 mg Q1M PRN IV PUSH 03/16/17 18:15 (Ativan) 1 mg Q4H PRN PO 03/16/17 18:15 (Ativan) 2 mg Q2H PRN PO 03/16/17 18:15 (Ativan Inj) 2 mg Q1H PRN IV PUSH 03/16/17 18:15 (Ativan Inj) 2 mg Q15M PRN IV PUSH 03/16/17 18:15 Sodium Chloride 1,000 ml @ 150 mls/hr Q6H40M IV 03/16/17 18:10 03/17/17 09:44 (NS Flush) 2 ml UNSCH PRN IV FLUSH 03/16/17 18:15 (NS Flush) 2 ml BID IV FLUSH 03/16/17 21:00 03/17/17 09:44 (Tylenol) 650 mg Q4H PRN PO 03/16/17 18:15 (Zofran Inj) 4 mg Q6H PRN IVP 03/16/17 18:15 (Tylenol) 650 mg Q6H PRN PO 03/16/17 18:15 (Percocet 5-325 Mg) 1 tab Q6H PRN PO 03/16/17 18:15 (Narcan Inj) 0.4 mg UNSCH PRN IV 03/16/17 18:15 (Letitia-Colace) 1 tab BID PO 03/16/17 21:00 (Theragran) 1 tab DAILY PO 03/17/17 09:00 03/17/17 09:42 (Folate) 1 mg DAILY PO 03/17/17 09:00 03/17/17 09:42 (Vitamin B1) 100 mg DAILY PO 03/17/17 09:00 03/17/17 09:42 A/P Assessment and Plan Acute GIB The patient presented with a hemoglobin of 6.9. He has been experiencing weakness, palpitations and dizziness over the past few days. Rectal exam did demonstrate occult blood. GI consult appreciated. - s/p 2 units red blood cells. Repeat CBC pending. - Follow CBC and transfuse as needed. - GI planning on EGD 03/17. - Protonix 40 mg IV twice a day. - IV fluids. Alcohol withdrawal The patient's last week was about 3 days prior to admission. He is starting to feel shaky. - WA protocol. - Multivitamin, folate and thiamine. - Seizure precautions. - Cessation instruction. Tachycardia EKG with sinus tachycardia. Secondary to above. - Treatment as above. Hypoglycemia Possibly a stress reaction. - Will check a hemoglobin A1c. PPx: SCDs Discharge Planning Awaiting EGD Corey Richards DO Mar 17, 2017 11:04
[2017-03-17 11:24] LABS: HEMATOCRIT 22.7 % (39.0-51.0); MEAN CORPUSCULAR HEMOGLOBIN 26.5 PG (27.0-34.0); MEAN CORPUSCULAR HGB CONC 33.6 % (32.0-36.0); PLATELET COUNT 183 TH/MM3 (150-450); RED BLOOD COUNT 2.88 MIL/MM3 (4.50-5.90); RED CELL DISTRIBUTION WIDTH 17.3 % (11.6-17.2); REVIEW FLAG FINAL; WHITE BLOOD COUNT 7.2 TH/MM3 (4.0-11.0)
[2017-03-17] MEDS ORDERED: PROPOFOL 200 MG/20 ML AMP IV PUSH ONE (12:00)
[2017-03-17] MEDS ORDERED: PEG (High)/E-LYTE SOLN 4000 ML BTL PO ONE (12:15)
--- NOTE | 2017-03-17 13:36 | EKG ---
Date Performed: 03/16/2017 Time Performed: 19:23:30 PTAGE: 51 years EKG: SINUS TACHYCARDIA Voltage criteria for left ventricular hypertrophy with diastolic overload ABNORMAL RHYTHM ECG NO PREVIOUS TRACING DOCTOR: aMdy Cope Interpretating Date/Time 03/17/2017 13:34:22
--- NOTE | 2017-03-17 13:58 | GIPROC ---
[facility] [address] [facility]. [facility] [place], [address] EGD PROCEDURE REPORT EXAM DATE: 03/17/2017 PATIENT NAME: Brad Davis MR #: [id number] BIRTHDATE: 1965 ATTENDING: Griselda Faustin MD ORDER #: [id number] RN PROGRESSIVE CARE: Harika Dunne and Pepe Cherry STATUS: inpatient INDICATIONS: The patient is a 51 yr old male here for an EGD due to anemia gi bleeding PROCEDURE PERFORMED: EGD w/ biopsy MEDICATIONS: None and Per Anesthesia. TOPICAL ANESTHETIC: none CONSENT: The patient understands the risks and benefits of the procedure and understands that these risks include, but are not limited to: sedation, allergic reaction, infection, perforation and/or bleeding. Alternative means of evaluation and treatment include, among others: physical exam, x-rays, and/or surgical intervention. The patient elects to proceed with this endoscopic procedure. medical equipment was checked for proper function. Hand hygiene and appropriate measures for infection prevention was taken. After the risks, benefits and alternatives of the procedure were thoroughly explained, Informed consent was verified, confirmed and timeout was successfully executed by the treatment team. The patient was anesthetized with topical anesthesia and the SilMach [id number] endoscope was introduced through the mouth and advanced to the second portion of the duodenum. Retroflexed views revealed a hiatal hernia The gastroscope was then slowly withdrawn and removed. Duodenitis duodenl bulb-biopsy gastrtis antrum-biopsy nodular mucosa with nondistension of typsrrf-bonx-rjxzgcvn biopsies done very suspicious for malignancy. ADVERSE EVENTS: There were no complications. IMPRESSIONS: 1. Duodenitis duodenl bulb-biopsy gastrtis antrum-biopsy nodular mucosa with nondistension of rqijfqf-pjjw-ifbbiexg biopsies done very suspicious for malignancy 2. Retroflexed views revealed a hiatal hernia RECOMMENDATIONS: 1. Await biopsy results. Biopsy results will not be ready for 7-10 days. If you don't hear from us in two weeks, call our office for biopsy results. 2. Anti-reflux regimen 3. Colonoscopy in am tumor markers ct abdomen/pelvis clear liquid diet PATIENT CONDITION: stable DISPOSITION: Inpatient REPEAT EXAM: EGD pending biopsy results Griselda Faustin MD eSigned: Griselda Faustin MD 03/17/2017 1:57 PM cc: PATIENT NAME: Brad Davis MR#: [id number]
[2017-03-17] MEDS ORDERED: DIATRIZOATE MEGLUM/DIATRIZOATE SOD 9 ML CUP PO ONE (14:30)
[2017-03-17] MEDS ORDERED: IOHEXOL 350 MG/ML 10 ML VIAL (for RAD DIAG) IVCONTRAST ONE (16:30)
--- NOTE | 2017-03-17 16:43 | RADRPT ---
EXAM DATE/TIME: 03/17/2017 16:29 [place] COMPARISON: CT ABDOMEN & PELVIS W CONTRAST, January 02, 2017, 12:39. INDICATIONS : Abdomen pain, GI bleed with anemia and stomach pain. IV CONTRAST: 80 cc Omnipaque 350 (iohexol) IV ORAL CONTRAST: Prescribed oral contrast ingested. RADIATION DOSE: 4.54 CTDIvol (mGy) MEDICAL HISTORY : Ulcer. SURGICAL HISTORY : Polyps removed from colon. ENCOUNTER: Initial ACUITY: 1 day PAIN SCALE: 2/10 LOCATION: Bilateral lower quadrant TECHNIQUE: Volumetric scanning of the abdomen and pelvis was performed. Using automated exposure control and ad justment of the mA and/or kV according to patient size, radiation dose was kept as low as reasonably achievable to obtain optimal diagnostic quality images. DICOM format image data is available electro nically for review and comparison. FINDINGS: LOWER LUNGS: The visualized lower lungs are clear. LIVER: Homogeneous density without lesion. There is no dilation of the biliary tree. No calcified gallston es. There is mild hepatic steatosis. SPLEEN: Normal size without lesion. PANCREAS: Within normal limits. KIDNEYS: Normal in size and shape. There is no mass, stone or hydronephrosis. ADRENAL GLANDS: Within normal limits. VASCULAR: There is no aortic aneurysm. BOWEL/MESENTERY: The colon is well opacified and is unremarkable. There are multiple loops of nondilated air-containin g small bowel with multiple small air-fluid levels in the small bowel and colon. There is no free int raperitoneal air or fluid. ABDOMINAL WALL: Within normal limits. RETROPERITONEUM: There is no lymphadenopathy. BLADDER: No wall thickening or mass. REPRODUCTIVE: Within normal limits. INGUINAL: There is no lymphadenopathy or hernia. MUSCULOSKELETAL: Within normal limits for patient age. CONCLUSION: 1. Mildly nonspecific bowel gas pattern which could indicate gastroenteritis and/or ileus. There is n o evidence of obstruction. 2. Hepatic steatosis Corey Howard MD on March 17, 2017 at 16:39 Board Certified Radiologist. This report was verified electronically.
[2017-03-17] MEDS: oxyCODONE/ACETAMINOPHEN 5 MG/325 MG TAB PO PRN (21:23)
[2017-03-18] VITALS (13 sets, daily range): BP systolic 105–116; BP diastolic 79–85; PULSE 74–104; RESP 16–20; TEMP 98–98.3; O2SAT 98–100
[2017-03-18] MEDS: SODIUM CHLOR 0.9% 1000 ML INJ 1,000 ML IV SCH ×3 (03:30→20:09)
[2017-03-18] MEDS: PANTOPRAZOLE SODIUM 40 MG VIAL IV PUSH SCH ×2 (05:16→18:23)
[2017-03-18] MEDS: SODIUM CHLORIDE 0.9% FLUSH 10 ML FLUSH IV FLUSH SCH ×2 (08:15→20:09)
[2017-03-18] MEDS: FOLIC ACID 1 MG TAB PO SCH (08:16)
[2017-03-18] MEDS: DOCUSATE SODIUM 50 MG/SENNA 8.6 MG TAB PO SCH ×2 (08:16→20:08)
[2017-03-18] MEDS: THIAMINE HCL 100 MG TAB PO SCH (08:16)
[2017-03-18] MEDS: MULTIVITAMIN TAB PO SCH (08:16)
--- NOTE | 2017-03-18 11:33 | HHI.PR ---
Subjective Remarks The patient was resting in bed comfortably. He said that he drink the preparation for the colonoscopy. He has not noticed any further black stools. Objective Vitals Vital Signs Date Time Temp Pulse Resp B/P (MAP) Pulse Ox O2 Delivery O2 Flow Rate FiO2 03/18/17 08:30 98.2 82 16 105/81 (89) 100 03/18/17 08:00 75 03/18/17 04:08 98.0 78 20 108/84 (92) 100 03/18/17 00:35 98.1 75 18 106/79 (88) 100 03/18/17 00:23 82 03/17/17 20:49 98.1 97 20 110/80 (90) 100 03/17/17 18:09 82 03/17/17 16:57 98.6 83 16 121/91 (101) 100 03/17/17 12:38 98.3 84 16 118/85 (96) 100 03/17/17 12:09 98.4 94 18 106/76 (86) 100 I/O 03/17/17 03/17/17 03/17/17 03/18/17 03/18/17 03/18/17 07:00 15:00 23:00 07:00 15:00 23:00 Intake Total 625 ml 1050 ml 240 ml Balance 625 ml 1050 ml 240 ml Intake Oral 200 ml 240 ml Packed Cells 250 ml 250 ml Blood Product IV Normal Saline Flush 375 ml 350 ml Other 250 ml # Voids 3 1 # Bowel Movements 2 2 Result Diagram: 03/17/17 1110 03/17/17 0635 Imaging Last Impressions Abdomen/Pelvis CT 03/17/17 0000 Signed Impressions: Service Date/Time: Friday, March 17, 2017 16:29 - CONCLUSION: 1. Mildly nonspecific bowel gas pattern which could indicate gastroenteritis and/or ileus. There is no evidence of obstruction. 2. Hepatic steatosis Corey Howard MD Objective Remarks GENERAL: This is a well-nourished, well-developed patient, in no apparent distress. SKIN: No rashes, ecchymoses or lesions. Cool and dry. Color improved. HEAD: Atraumatic. Normocephalic. No temporal or scalp tenderness. EYES: Pupils equal round and reactive. Extraocular motions intact. No scleral icterus. No injection or drainage. ENT: Nose without bleeding, purulent drainage or septal hematoma. Throat without erythema, tonsillar hypertrophy or exudate. Uvula midline. Airway patent. NECK: Trachea midline. No JVD or lymphadenopathy. Supple, nontender, no meningeal signs. CARDIOVASCULAR: Regular rate and rhythm without murmurs, gallops, or rubs. RESPIRATORY: Clear to auscultation. Breath sounds equal bilaterally. No wheezes , rales, or rhonchi. GASTROINTESTINAL: Abdomen soft, non-tender, nondistended. No hepato-splenomegaly , or palpable masses. No guarding. MUSCULOSKELETAL: Extremities without clubbing, cyanosis, or edema. No joint tenderness, effusion, or edema noted. NEUROLOGICAL: Awake and alert. Cranial nerves II through XII intact. Motor and sensory grossly within normal limits. Five out of 5 muscle strength in all muscle groups. Normal speech. PSYCH: Flattened affect. Procedures EGD 03/17 Medications and IVs Current Medications Medications (Trade) Dose Ordered Sig/Ting Route Start Time Stop Time Status Last Admin (Protonix Inj) 40 mg Q12H IV PUSH 03/16/17 18:15 03/18/17 05:16 (Romazicon Inj) 0.2 mg Q1M PRN IV PUSH 03/16/17 18:15 (Ativan) 1 mg Q4H PRN PO 03/16/17 18:15 (Ativan) 2 mg Q2H PRN PO 03/16/17 18:15 (Ativan Inj) 2 mg Q1H PRN IV PUSH 03/16/17 18:15 (Ativan Inj) 2 mg Q15M PRN IV PUSH 03/16/17 18:15 Sodium Chloride 1,000 ml @ 150 mls/hr Q6H40M IV 03/16/17 18:10 03/18/17 08:17 (NS Flush) 2 ml UNSCH PRN IV FLUSH 03/16/17 18:15 (NS Flush) 2 ml BID IV FLUSH 03/16/17 21:00 03/18/17 08:15 (Tylenol) 650 mg Q4H PRN PO 03/16/17 18:15 (Zofran Inj) 4 mg Q6H PRN IVP 03/16/17 18:15 (Tylenol) 650 mg Q6H PRN PO 03/16/17 18:15 (Percocet 5-325 Mg) 1 tab Q6H PRN PO 03/16/17 18:15 03/17/17 21:23 (Narcan Inj) 0.4 mg UNSCH PRN IV 03/16/17 18:15 (Letitia-Colace) 1 tab BID PO 03/16/17 21:00 03/17/17 21:20 (Theragran) 1 tab DAILY PO 03/17/17 09:00 03/18/17 08:16 (Folate) 1 mg DAILY PO 03/17/17 09:00 03/18/17 08:16 (Vitamin B1) 100 mg DAILY PO 03/17/17 09:00 03/18/17 08:16 A/P Assessment and Plan Acute GIB The patient presented with a hemoglobin of 6.9. He has been experiencing weakness, palpitations and dizziness over the past few days. Rectal exam did demonstrate occult blood. GI consult appreciated. S/p 2 units red blood cells. Improved. EGD per GI 03/17: Duodenitis, gastrtis, nodular mucosa that was suspicious for malignancy. CT abdomen noted. - colonoscopy scheduled for 03/18. - follow pathology. - Follow CBC and transfuse as needed. - Protonix 40 mg IV twice a day. - IV fluids. Alcohol withdrawal The patient's last week was about 3 days prior to admission. He is starting to feel shaky. - CIWA protocol. - Multivitamin, folate and thiamine. - Seizure precautions. - Cessation instruction. Tachycardia EKG with sinus tachycardia. Secondary to above. - Treatment as above. Resolved. PPx: SCDs Discharge Planning Awaiting colonoscopy Corey Richarsd DO Mar 18, 2017 11:33
[2017-03-18] MEDS ORDERED: PROPOFOL 200 MG/20 ML AMP IV PUSH ONE (12:57)
--- NOTE | 2017-03-18 13:01 | GIPROC ---
[facility] [address] [facility]. [facility], [address] COLONOSCOPY PROCEDURE REPORT EXAM DATE: 03/18/2017 PATIENT NAME: Brad Davis MR #: [id number] BIRTHDATE: 1965 ENDOSCOPIST: Griselda Faustin MD ORDER #: [id number] OPERATOR: Carlos Alberto Johnson and Rosario Mojica STATUS: inpatient INDICATIONS: The patient is a 51 yr old male here for a colonoscopy due to anemia, history of polyps PROCEDURE PERFORMED: Colonoscopy, diagnostic MEDICATIONS: None and Per Anesthesia. PREP QUALITY: fair PREP TYPE:GoLytely ESTIMATED BLOOD LOSS: None CONSENT: The patient understands the risks and benefits of the procedure and understands that these risks include, but are not limited to: sedation, allergic reaction, infection, perforation and/or bleeding. Alternative means of evaluation and treatment include, among others: physical exam, x-rays, and/or surgical intervention. The patient elects to proceed with this endoscopic procedure. medical equipment was checked for proper function. Hand hygiene and appropriate measures for infection prevention was taken. After the risks, benefits and alternatives of the procedure were thoroughly explained, Informed consent was verified, confirmed and timeout was successfully executed by the treatment team. A digital exam revealed external hemorrhoids The Pentax [id number] endoscope was introduced through the anus and advanced to the cecum, which was identified by both the appendix and ileocecal valve. The instrument was then slowly withdrawn as the colon was fully examined. COLON FINDINGS: Diverticulosis sigmoid,descending. Retroflexed views revealed internal hemorrhoids and Retroflexed views revealed small internal hemorrhoids The scope was then completely withdrawn from the patient and the procedure terminated. PROCEDURE WITHDRAWAL TIME:6minutes ADVERSE EVENTS: There were no complications. IMPRESSIONS: 1. Diverticulosis sigmoid,descending 2. Retroflexed views revealed internal hemorrhoids 3. Retroflexed views revealed small internal hemorrhoids 4. Revealed external hemorrhoids RECOMMENDATIONS: 1. Benefiber 2 tsp daily 2. Probiotics from any [facility] or health food store 3. Yearly rectal exams RECALL: Return 5 years Colonoscopy Griselda Faustin MD eSigned: Griselda Faustin MD 03/18/2017 1:00 PM cc:
[2017-03-18 14:52] LABS: AUTOMATED NEUTROPHIL # 1.9 TH/MM3 (1.8-7.7); BASOPHIL % 0.3 % (0.0-2.0); EOSINOPHIL # 0.1 TH/MM3 (0-0.4); EOSINOPHIL % 3.4 % (0.0-4.0); HEMATOCRIT 22.9 % (39.0-51.0); HEMO FLAGS DIFF FINAL; LYMPH % 42.4 % (9.0-44.0); LYMPHOCYTE # 1.7 TH/MM3 (1.0-4.8); MEAN CELL VOLUME 79.9 FL (80.0-100.0); MEAN CORPUSCULAR HEMOGLOBIN 26.5 PG (27.0-34.0); MEAN CORPUSCULAR HGB CONC 33.2 % (32.0-36.0); MONO % 5.9 % (0.0-8.0); PLATELET COUNT 160 TH/MM3 (150-450); RED BLOOD COUNT 2.87 MIL/MM3 (4.50-5.90); RED CELL DISTRIBUTION WIDTH 18.5 % (11.6-17.2)
[2017-03-18 14:56] LABS: ALT (GPT) 15 U/L (12-78); ANION GAP 7 MEQ/L (5-15); AST (GOT) 28 U/L (15-37); BICARBONATE 26.4 MEQ/L (21.0-32.0); BLOOD UREA NITROGEN 7 MG/DL (7-18); CHLORIDE 105 MEQ/L (98-107); GLOMERULAR FILTRATION RATE 119 ML/MIN (>89); MAGNESIUM 1.7 MG/DL (1.5-2.5); POTASSIUM 3.9 MEQ/L (3.5-5.1); SODIUM (NA) 138 MEQ/L (136-145)
[2017-03-18 14:59] LABS: ALKALINE PHOSPHATASE 44 U/L (45-117); TOTAL BILIRUBIN ADULT 0.4 MG/DL (0.2-1.0)
[2017-03-18] MEDS: oxyCODONE/ACETAMINOPHEN 5 MG/325 MG TAB PO PRN (20:45)
[2017-03-19] VITALS (9 sets, daily range): BP systolic 105–135; BP diastolic 81–88; PULSE 78–97; RESP 16–18; TEMP 96.2–97.9; O2SAT 96–100
[2017-03-19] MEDS: oxyCODONE/ACETAMINOPHEN 5 MG/325 MG TAB PO PRN ×3 (01:45→20:20)
[2017-03-19] MEDS: PANTOPRAZOLE SODIUM 40 MG VIAL IV PUSH SCH ×2 (05:25→20:14)
[2017-03-19] MEDS: SODIUM CHLOR 0.9% 1000 ML INJ 1,000 ML IV SCH ×3 (05:27→20:24)
[2017-03-19 05:33] LABS: BICARBONATE 25.9 MEQ/L (21.0-32.0); MAGNESIUM 1.8 MG/DL (1.5-2.5); POTASSIUM 4.2 MEQ/L (3.5-5.1)
[2017-03-19 05:35] LABS: HEMATOCRIT 22.1 % (39.0-51.0); MEAN CELL VOLUME 82.4 FL (80.0-100.0); MEAN CORPUSCULAR HEMOGLOBIN 27.2 PG (27.0-34.0); PLATELET COUNT 178 TH/MM3 (150-450); RED BLOOD COUNT 2.68 MIL/MM3 (4.50-5.90); RED CELL DISTRIBUTION WIDTH 18.4 % (11.6-17.2); REVIEW FLAG FINAL; WHITE BLOOD COUNT 4.3 TH/MM3 (4.0-11.0)
[2017-03-19] MEDS: DOCUSATE SODIUM 50 MG/SENNA 8.6 MG TAB PO SCH ×2 (09:06→21:00)
[2017-03-19] MEDS: FOLIC ACID 1 MG TAB PO SCH (09:06)
[2017-03-19] MEDS: MULTIVITAMIN TAB PO SCH (09:06)
[2017-03-19] MEDS: THIAMINE HCL 100 MG TAB PO SCH (09:06)
[2017-03-19] MEDS ORDERED: PROPOFOL 200 MG/20 ML AMP IV ONE (12:00)
[2017-03-19] MEDS ORDERED: ONDANSETRON HCL 4 MG/2 ML VIAL IV PUSH ONE (12:00)
[2017-03-19] MEDS: SODIUM CHLORIDE 0.9% FLUSH 10 ML FLUSH IV FLUSH SCH ×2 (13:18→21:00)
--- NOTE | 2017-03-19 14:48 | HHI.PR ---
Subjective Remarks The patient was hungry. He said he was not sure if he was going for the procedure today or tomorrow. He wanted to know why his blood count was still low and why he kept having black stools. Objective Vitals Vital Signs Date Time Temp Pulse Resp B/P (MAP) Pulse Ox O2 Delivery O2 Flow Rate FiO2 03/19/17 12:45 96.8 83 16 114/87 (96) 100 03/19/17 10:06 18 03/19/17 08:53 81 03/19/17 08:00 96.7 85 16 114/84 (94) 96 03/19/17 05:00 78 03/19/17 04:00 96.2 86 18 105/81 (89) 99 03/19/17 00:00 79 03/19/17 00:00 97.5 91 18 112/83 (93) 99 03/18/17 20:10 104 03/18/17 20:00 98.3 96 18 116/83 (94) 98 03/18/17 18:18 99 21 03/18/17 17:15 98.2 85 17 113/83 (93) 99 03/18/17 15:30 98 I/O 03/18/17 03/18/17 03/18/17 03/19/17 03/19/17 03/19/17 07:00 15:00 23:00 07:00 15:00 23:00 Intake Total 300 ml 200 ml 1480 ml Output Total 900 ml Balance 300 ml 200 ml 580 ml Intake Oral 480 ml IV Total 200 ml 1000 ml Other 300 ml Output Urine Total 900 ml # Voids 1 # Bowel Movements 2 Result Diagram: 03/19/17 0428 03/19/17 0428 Imaging Last Impressions Abdomen/Pelvis CT 03/17/17 0000 Signed Impressions: Service Date/Time: Friday, March 17, 2017 16:29 - CONCLUSION: 1. Mildly nonspecific bowel gas pattern which could indicate gastroenteritis and/or ileus. There is no evidence of obstruction. 2. Hepatic steatosis Corey Howard MD Objective Remarks GENERAL: This is a well-nourished, well-developed patient, in no apparent distress. SKIN: No rashes, ecchymoses or lesions. Cool and dry. HEAD: Atraumatic. Normocephalic. No temporal or scalp tenderness. EYES: Pupils equal round and reactive. Extraocular motions intact. No scleral icterus. No injection or drainage. ENT: Nose without bleeding, purulent drainage or septal hematoma. Throat without erythema, tonsillar hypertrophy or exudate. Uvula midline. Airway patent. NECK: Trachea midline. No JVD or lymphadenopathy. Supple, nontender, no meningeal signs. CARDIOVASCULAR: Regular rate and rhythm without murmurs, gallops, or rubs. RESPIRATORY: Clear to auscultation. Breath sounds equal bilaterally. No wheezes , rales, or rhonchi. GASTROINTESTINAL: Abdomen soft, slight tenderness in the left upper quadrant, nondistended. No hepato-splenomegaly, or palpable masses. No guarding. MUSCULOSKELETAL: Extremities without clubbing, cyanosis, or edema. No joint tenderness, effusion, or edema noted. NEUROLOGICAL: Awake and alert. Cranial nerves II through XII intact. Motor and sensory grossly within normal limits. Five out of 5 muscle strength in all muscle groups. Normal speech. PSYCH: Flattened affect. Procedures EGD 03/17 Colonoscopy 03/18 Medications and IVs Current Medications Medications (Trade) Dose Ordered Sig/Ting Route Start Time Stop Time Status Last Admin (Protonix Inj) 40 mg Q12H IV PUSH 03/16/17 18:15 03/19/17 05:25 (Romazicon Inj) 0.2 mg Q1M PRN IV PUSH 03/16/17 18:15 (Ativan) 1 mg Q4H PRN PO 03/16/17 18:15 (Ativan) 2 mg Q2H PRN PO 03/16/17 18:15 (Ativan Inj) 2 mg Q1H PRN IV PUSH 03/16/17 18:15 (Ativan Inj) 2 mg Q15M PRN IV PUSH 03/16/17 18:15 Sodium Chloride 1,000 ml @ 150 mls/hr Q6H40M IV 03/16/17 18:10 03/19/17 13:17 (NS Flush) 2 ml UNSCH PRN IV FLUSH 03/16/17 18:15 (NS Flush) 2 ml BID IV FLUSH 03/16/17 21:00 03/19/17 13:18 (Tylenol) 650 mg Q4H PRN PO 03/16/17 18:15 (Zofran Inj) 4 mg Q6H PRN IVP 03/16/17 18:15 (Tylenol) 650 mg Q6H PRN PO 03/16/17 18:15 (Percocet 5-325 Mg) 1 tab Q6H PRN PO 03/16/17 18:15 03/19/17 09:06 (Narcan Inj) 0.4 mg UNSCH PRN IV 03/16/17 18:15 (Letitia-Colace) 1 tab BID PO 03/16/17 21:00 03/19/17 09:06 (Theragran) 1 tab DAILY PO 03/17/17 09:00 03/19/17 09:06 (Folate) 1 mg DAILY PO 03/17/17 09:00 03/19/17 09:06 (Vitamin B1) 100 mg DAILY PO 03/17/17 09:00 03/19/17 09:06 A/P Assessment and Plan Acute GIB The patient presented with a hemoglobin of 6.9. He has been experiencing weakness, palpitations and dizziness over the past few days. Rectal exam did demonstrate occult blood. GI consult appreciated. S/p 2 units red blood cells. Improved. EGD per GI 03/17: Duodenitis, gastrtis, nodular mucosa that was suspicious for malignancy. CT abdomen noted. Colonoscopy showed sigmoid diverticulosis. - EUS per GI pending. - follow pathology. - Follow CBC and transfuse as needed. - Protonix 40 mg IV twice a day. - IV fluids. Alcohol withdrawal The patient's last week was about 3 days prior to admission. Seems stable. - [facility] protocol. - Multivitamin, folate and thiamine. - Seizure precautions. - Cessation instruction. Tachycardia EKG with sinus tachycardia. Secondary to above. - Treatment as above. Resolved. PPx: SCDs Discharge Planning Awaiting EUS Corey Richards DO Mar 19, 2017 14:48
[2017-03-19] MEDS ORDERED: PROPOFOL 200 MG/20 ML AMP IV PUSH ONE (17:12)
[2017-03-19] MEDS ORDERED: DO NOT ADM ANY ANTICOAGULANT DRUGS PRN (17:20)
--- NOTE | 2017-03-19 17:45 | PD.PROCEDR ---
GI Procedure REFERRING PHYSICIAN Brian PROCEDURE PERFORMED Endoscopic ultrasound INDICATION FOR PROCEDURE Nodular gastric mucosa PROCEDURE: The procedure, risks and benefits were discussed with Mr. Davis and informed consent was obtained. Anesthesia sedated him with Diprivan. He was placed in the left lateral decubitus position. Endoscopic ultrasound: The Pentax videoscope was introduced through the oropharynx and advanced to the stomach. FINDINGS: Gastric mucosal lining appeared to be unremarkable through the endoscopic ultrasound I did not and erythema with some edema and a small superficial ulcer with a clean base in the antrum and again surveillance with the endoscopic ultrasound was basically unremarkable as far as mass or malignancy No lymphadenopathy noted The pancreas in both its body and tell was unremarkable Pancreatic duct was also unremarkable ESTIMATED BLOOD LOSS: None SPECIMENS REMOVED: None COMPLICATIONS: None IMPRESSION: Gastric ulcer Unremarkable endoscopic ultrasound PLAN: Continue with current supportive care Recommend EGD in 2 months to follow-up on the ulcer PPI Avoid NSAIDs and aspirin Jose Vasquez MD Mar 19, 2017 17:45
[2017-03-20] VITALS (11 sets, daily range): BP systolic 103–141; BP diastolic 67–99; PULSE 78–96; RESP 16–18; TEMP 97.4–98.4; O2SAT 99–100
[2017-03-20] MEDS: oxyCODONE/ACETAMINOPHEN 5 MG/325 MG TAB PO PRN ×3 (02:00→17:49)
[2017-03-20] MEDS: SODIUM CHLOR 0.9% 1000 ML INJ 1,000 ML IV SCH ×3 (02:30→17:49)
[2017-03-20] MEDS: PANTOPRAZOLE SODIUM 40 MG VIAL IV PUSH SCH (05:02)
[2017-03-20] MEDS: THIAMINE HCL 100 MG TAB PO SCH (08:59)
[2017-03-20] MEDS: FOLIC ACID 1 MG TAB PO SCH (08:59)
[2017-03-20] MEDS: DOCUSATE SODIUM 50 MG/SENNA 8.6 MG TAB PO SCH ×2 (08:59→21:36)
[2017-03-20] MEDS: MULTIVITAMIN TAB PO SCH (08:59)
[2017-03-20] MEDS: SODIUM CHLORIDE 0.9% FLUSH 10 ML FLUSH IV FLUSH SCH ×2 (09:00→21:36)
[2017-03-20] MEDS ORDERED: PANT40TA3 PO (10:51)
[2017-03-20] MEDS ORDERED: OXYC1TAB63 PO (10:51)
--- NOTE | 2017-03-20 11:13 | HHI.PR ---
Subjective Remarks The patient was relieved to hear there was no concern for malignancy at this time. He wanted to know how to prevent this from happening again. He wanted to know if he had cirrhosis. He said he would need a bus pass for discharge. Objective Vitals Vital Signs Date Time Temp Pulse Resp B/P (MAP) Pulse Ox O2 Delivery O2 Flow Rate FiO2 03/20/17 11:06 99 03/20/17 08:00 97.8 88 18 116/83 (94) 99 03/20/17 04:00 98.0 96 18 103/67 (79) 99 03/20/17 03:00 16 03/20/17 00:00 97.7 78 16 110/74 (86) 100 03/19/17 20:00 97.9 97 18 135/88 (104) 99 03/19/17 17:50 63 17 125/86 (99) 100 Room Air 03/19/17 17:30 67 17 129/85 (100) 100 Room Air 03/19/17 17:20 97.7 74 17 127/89 (102) 100 Nasal Cannula 2 03/19/17 16:05 96.9 82 16 116/85 (95) 100 03/19/17 12:45 96.8 83 16 114/87 (96) 100 I/O 03/19/17 03/19/17 03/19/17 03/20/17 03/20/17 03/20/17 07:00 15:00 23:00 07:00 15:00 23:00 Intake Total 1480 ml 980 ml 720 ml 1000 ml Output Total 900 ml 600 ml Balance 580 ml 380 ml 720 ml 1000 ml Intake Oral 480 ml 480 ml 720 ml IV Total 1000 ml 1000 ml Other 500 ml Output Urine Total 900 ml 600 ml Result Diagram: 03/19/17 0428 03/19/17 0428 Imaging Last Impressions Abdomen/Pelvis CT 03/17/17 0000 Signed Impressions: Service Date/Time: Friday, March 17, 2017 16:29 - CONCLUSION: 1. Mildly nonspecific bowel gas pattern which could indicate gastroenteritis and/or ileus. There is no evidence of obstruction. 2. Hepatic steatosis Corey Howard MD Objective Remarks GENERAL: This is a well-nourished, well-developed patient, in no apparent distress. SKIN: No rashes, ecchymoses or lesions. Cool and dry. HEAD: Atraumatic. Normocephalic. No temporal or scalp tenderness. EYES: Pupils equal round and reactive. Extraocular motions intact. No scleral icterus. No injection or drainage. ENT: Nose without bleeding, purulent drainage or septal hematoma. Throat without erythema, tonsillar hypertrophy or exudate. Uvula midline. Airway patent. NECK: Trachea midline. No JVD or lymphadenopathy. Supple, nontender, no meningeal signs. CARDIOVASCULAR: Regular rate and rhythm without murmurs, gallops, or rubs. RESPIRATORY: Clear to auscultation. Breath sounds equal bilaterally. No wheezes , rales, or rhonchi. GASTROINTESTINAL: Abdomen soft, slight tenderness in the epigastric area, nondistended. No hepato-splenomegaly, or palpable masses. No guarding. MUSCULOSKELETAL: Extremities without clubbing, cyanosis, or edema. No joint tenderness, effusion, or edema noted. NEUROLOGICAL: Awake and alert. Cranial nerves II through XII intact. Motor and sensory grossly within normal limits. Five out of 5 muscle strength in all muscle groups. Normal speech. PSYCH: Flattened affect. Procedures EGD 03/17 Colonoscopy 03/18 EUS 03/19 Medications and IVs Current Medications Medications (Trade) Dose Ordered Sig/Ting Route Start Time Stop Time Status Last Admin (Protonix Inj) 40 mg Q12H IV PUSH 03/16/17 18:15 03/20/17 05:02 (Romazicon Inj) 0.2 mg Q1M PRN IV PUSH 03/16/17 18:15 (Ativan) 1 mg Q4H PRN PO 03/16/17 18:15 (Ativan) 2 mg Q2H PRN PO 03/16/17 18:15 (Ativan Inj) 2 mg Q1H PRN IV PUSH 03/16/17 18:15 (Ativan Inj) 2 mg Q15M PRN IV PUSH 03/16/17 18:15 Sodium Chloride 1,000 ml @ 150 mls/hr Q6H40M IV 03/16/17 18:10 03/20/17 09:00 (NS Flush) 2 ml UNSCH PRN IV FLUSH 03/16/17 18:15 (NS Flush) 2 ml BID IV FLUSH 03/16/17 21:00 03/20/17 09:00 (Tylenol) 650 mg Q4H PRN PO 03/16/17 18:15 (Zofran Inj) 4 mg Q6H PRN IVP 03/16/17 18:15 (Tylenol) 650 mg Q6H PRN PO 03/16/17 18:15 (Percocet 5-325 Mg) 1 tab Q6H PRN PO 03/16/17 18:15 03/20/17 11:00 (Narcan Inj) 0.4 mg UNSCH PRN IV 03/16/17 18:15 (Letitia-Colace) 1 tab BID PO 03/16/17 21:00 03/20/17 08:59 (Theragran) 1 tab DAILY PO 03/17/17 09:00 03/20/17 08:59 (Folate) 1 mg DAILY PO 03/17/17 09:00 03/20/17 08:59 (Vitamin B1) 100 mg DAILY PO 03/17/17 09:00 03/20/17 08:59 Miscellaneous Information ALL NURSING DEPARTME... UNSCH PRN .XX 03/19/17 17:20 03/20/17 17:19 A/P Assessment and Plan Acute GIB The patient presented with a hemoglobin of 6.9. He has been experiencing weakness, palpitations and dizziness over the past few days. Rectal exam did demonstrate occult blood. GI consult appreciated. S/p 2 units red blood cells. Improved. EGD per GI 03/17: Duodenitis, gastrtis, nodular mucosa that was suspicious for malignancy. CT abdomen noted. Colonoscopy showed sigmoid diverticulosis. EUS with a clean gastric ulcer, no concern for malignancy. Pathology from EGD with severe gastritis. - Follow CBC and transfuse as needed. - Protonix 40 mg PO twice a day. - alcohol cessation instruction. Alcohol withdrawal The patient's last drink was about 3 days prior to admission. Seems stable. - [facility] protocol. - Multivitamin, folate and thiamine. - Seizure precautions. - Cessation instruction. Tachycardia EKG with sinus tachycardia. Secondary to above. - Treatment as above. Resolved. PPx: SCDs Discharge Planning Awaiting GI clearance and repeat CBC. Possibly d/c later today. Corey Richards DO Mar 20, 2017 11:13
--- NOTE | 2017-03-20 12:12 | HHI.DCPOC ---
Discharge Care Plan Diagnosis: (1) Symptomatic anemia (2) GI bleed (3) Alcoholism (4) Alcohol abuse Goals to Promote Your Health * To prevent worsening of your condition and complications * To maintain your health at the optimal level Directions to Meet Your Goals Take your medications as prescribed Follow your dietary instruction Follow activity as directed Keep your appointments as scheduled Take your immunizations and boosters as scheduled If your symptoms worsen call your PCP, if no PCP go to Urgent Care Center or Emergency Room Smoking is Dangerous to Your Health. Avoid second hand smoke Call the 24-hour hour crisis hotline for domestic abuse at Corey Richards DO Mar 20, 2017 12:12
--- NOTE | 2017-03-20 12:17 | HHI.DS ---
Discharge Summary Admission Date Mar 16, 2017 at 17:55 Discharge Date: Mar 21, 2017 Admitting Diagnosis gi bleed, symptomatic anemia,alcoholism (1) Alcohol abuse ICD Code: F10.10 - Alcohol abuse, uncomplicated Status: Acute (2) Symptomatic anemia ICD Code: D64.9 - Anemia, unspecified Status: Acute (3) GI bleed ICD Code: K92.2 - Gastrointestinal hemorrhage, unspecified Diagnosis: Principal Status: Acute Procedures EGD 03/17 Colonoscopy 03/18 EUS 03/19 Brief History - From Admission The patient is a 51-year-old male with a past medical history of depression, hypertension and alcohol abuse who is presenting to the hospital with dizziness and weakness. He says he checked himself to a [facility] for the [facility] a few days ago and he started to develop symptoms of weakness and dizziness fair. He said sometimes when he walks he has to be carried to get places. When he stands up he feels lightheaded and that he might pass out. He denies any loss of consciousness. The patient says that he has been having palpitations. He says when he gets up to walk he gets severe palpitations that really bother him. He does endorse seeing black stools recently but has not seen any obvious blood. He has not been vomiting but has been gagging intermittently. He does have a history of alcohol abuse and has not had a drink for 3 days because that is when he checked himself into the [facility]. He is starting to feel a little shaky at this time. He denies ever having alcohol withdrawal seizures. He denies any history of bleeding ulcers. CBC/BMP: 03/19/17 0428 03/19/17 0428 Significant Findings Laboratory Tests Test 03/18/17 14:00 03/19/17 04:28 03/20/17 06:17 Red Blood Count 2.87 MIL/MM3 (4.50-5.90) 2.68 MIL/MM3 (4.50-5.90) Hemoglobin 7.6 GM/DL (13.0-17.0) 7.3 GM/DL (13.0-17.0) Hematocrit 22.9 % (39.0-51.0) 22.1 % (39.0-51.0) Mean Corpuscular Volume 79.9 FL (80.0-100.0) Mean Corpuscular Hemoglobin 26.5 PG (27.0-34.0) Red Cell Distribution Width 18.5 % (11.6-17.2) 18.4 % (11.6-17.2) Total Protein 5.8 GM/DL (6.4-8.2) Albumin 2.6 GM/DL (3.4-5.0) Alkaline Phosphatase 44 U/L (45-117) Calcium Level 8.0 MG/DL (8.5-10.1) Chloride Level 108 MEQ/L (98-107) Imaging Last Impressions Abdomen/Pelvis CT 03/17/17 0000 Signed Impressions: Service Date/Time: Friday, March 17, 2017 16:29 - CONCLUSION: 1. Mildly nonspecific bowel gas pattern which could indicate gastroenteritis and/or ileus. There is no evidence of obstruction. 2. Hepatic steatosis Corey Howard MD PE at Discharge GENERAL: This is a well-nourished, well-developed patient, in no apparent distress. SKIN: No rashes, ecchymoses or lesions. Cool and dry. HEAD: Atraumatic. Normocephalic. No temporal or scalp tenderness. EYES: Pupils equal round and reactive. Extraocular motions intact. No scleral icterus. No injection or drainage. ENT: Nose without bleeding, purulent drainage or septal hematoma. Throat without erythema, tonsillar hypertrophy or exudate. Uvula midline. Airway patent. NECK: Trachea midline. No JVD or lymphadenopathy. Supple, nontender, no meningeal signs. CARDIOVASCULAR: Regular rate and rhythm without murmurs, gallops, or rubs. RESPIRATORY: Clear to auscultation. Breath sounds equal bilaterally. No wheezes , rales, or rhonchi. GASTROINTESTINAL: Abdomen soft, slight tenderness in the epigastric area, nondistended. No hepato-splenomegaly, or palpable masses. No guarding. MUSCULOSKELETAL: Extremities without clubbing, cyanosis, or edema. No joint tenderness, effusion, or edema noted. NEUROLOGICAL: Awake and alert. Cranial nerves II through XII intact. Motor and sensory grossly within normal limits. Five out of 5 muscle strength in all muscle groups. Normal speech. PSYCH: Flattened affect. Hospital Course Acute GIB The patient presented with a hemoglobin of 6.9. He has been experiencing weakness, palpitations and dizziness over the past few days prior to admission. Rectal exam did demonstrate occult blood. He received IVFs and IV PPI BID. GI was consulted. S/p [address] units red blood cells. CT abdomen: Mildly nonspecific bowel gas pattern which could indicate gastroenteritis and/or ileus; There is no evidence of obstruction; Hepatic steatosis EGD per GI 03/17: Duodenitis, gastrtis, nodular mucosa that was suspicious for malignancy. Colonoscopy showed sigmoid diverticulosis. EUS with a clean gastric ulcer, no concern for malignancy. Pathology from EGD with severe gastritis. He will continue Protonix 40 mg PO twice a day. He received alcohol cessation instruction. Hemoglobin level was 6.8 prior to discharge, so he will be transfused an additional unit and monitored overnight. Anticipate d/c in the AM. Alcohol withdrawal The patient's last drink was about 3 days prior to admission. He was placed on CIWA protocol. He received Multivitamin, folate and thiamine. He was placed on seizure precautions. He received cessation instruction. Tachycardia EKG with sinus tachycardia. Resolved with supportive care. Pt Condition on Discharge: Stable Discharge Disposition: Discharge Home Discharge Time: > 30 minutes Discharge Instructions Follow up Referrals: Gastroenterology - 10 Days with Griselda Faustin MD PCP Follow-up - 1 Week New Medications: Pantoprazole (Pantoprazole) 40 Mg Tab 40 MG PO BID for Reflux, #60 TAB 0 Refills Oxycodone-Acetaminophen (Oxycodone-Acetaminophen) 5-325 mg Tab 1 TAB PO Q6H PRN for PAIN SCALE 3 TO 10, #10 TAB Corey Richards DO Mar 20, 2017 12:17
[2017-03-20 14:39] LABS: MEAN CELL VOLUME 82.6 FL (80.0-100.0); MEAN CORPUSCULAR HEMOGLOBIN 26.4 PG (27.0-34.0); MEAN CORPUSCULAR HGB CONC 31.9 % (32.0-36.0); PLATELET COUNT 210 TH/MM3 (150-450); RED BLOOD COUNT 2.59 MIL/MM3 (4.50-5.90); RED CELL DISTRIBUTION WIDTH 18.2 % (11.6-17.2); WHITE BLOOD COUNT 5.2 TH/MM3 (4.0-11.0)
[2017-03-20 14:40] LABS: REVIEW FLAG FINAL
[2017-03-20 14:44] LABS: HEMATOCRIT 21.4 % (39.0-51.0)
--- NOTE | 2017-03-20 18:02 | HHI.GIFU ---
Subjective Remarks Resting in bed. No distress. Concerned that he has not seen any obvious blood loss, but hgb dropping, No n/v. Has not seen melena/hematochezia. (Azeb Chavez) Objective Vitals I&O Vital Signs Date Time Temp Pulse Resp B/P (MAP) Pulse Ox O2 Delivery O2 Flow Rate FiO2 03/20/17 17:50 99 21 03/20/17 12:00 97.8 87 18 123/85 (98) 100 03/20/17 11:06 99 03/20/17 08:00 97.8 88 18 116/83 (94) 99 03/20/17 04:00 98.0 96 18 103/67 (79) 99 03/20/17 03:00 16 03/20/17 00:00 97.7 78 16 110/74 (86) 100 03/19/17 20:00 97.9 97 18 135/88 (104) 99 I/O 03/19/17 03/19/17 03/19/17 03/20/17 03/20/17 03/20/17 07:00 15:00 23:00 07:00 15:00 23:00 Intake Total 1480 ml 980 ml 720 ml 1000 ml Output Total 900 ml 600 ml Balance 580 ml 380 ml 720 ml 1000 ml Intake Oral 480 ml 480 ml 720 ml IV Total 1000 ml 1000 ml Other 500 ml Output Urine Total 900 ml 600 ml Laboratory Laboratory Tests Test 03/20/17 13:50 White Blood Count 5.2 Red Blood Count 2.59 Hemoglobin 6.8 Hematocrit 21.4 Mean Corpuscular Volume 82.6 Mean Corpuscular Hemoglobin 26.4 Mean Corpuscular Hemoglobin Concent 31.9 Red Cell Distribution Width 18.2 Platelet Count 210 Mean Platelet Volume 7.4 Imaging Last Impressions Abdomen/Pelvis CT 03/17/17 0000 Signed Impressions: Service Date/Time: Friday, March 17, 2017 16:29 - CONCLUSION: 1. Mildly nonspecific bowel gas pattern which could indicate gastroenteritis and/or ileus. There is no evidence of obstruction. 2. Hepatic steatosis Corey Howard MD Physical Exam HEENT: Normocephalic; atraumatic; no jaundice. CHEST: CTA CARDIAC: RRR ABDOMEN: Soft, nondistended, nontender; no hepatosplenomegaly; bowel sounds are present in all four quadrants. EXTREMITIES: No clubbing, cyanosis, or edema. SKIN: Normal; no rash; no jaundice. LADLE MECH[employer]IC: No focal deficits; alert and oriented times three. (Azeb Chavez) Assessment and Plan Plan ASSESSMENT: - GIB, Melena. Hx etoh abuse and hx of vague liver disease (pt unsure if this is cirrhosis or something else). Came to hospital for generalized weakness, racing heart, dizziness, found to have severe anemia. Pt reports nausea without vomiting. EGD (03/17/17)---> 1. Duodenitis duodenal bulb-biopsy gastritis antrum-biopsy nodular mucosa with nondistension of wojveuk-[id number]-[id number] biopsies done very suspicious for malignancy 2. Retroflexed views revealed a hiatal hernia Pathology, duodenal mucosa without significant histopathologic abnormality, severe chronic gastritis and focal intestinal metaplasia, severe chronic active gastritis in body negative for H. Pylori. S/P Colonoscopy (03/18/17)---> 1. Diverticulosis sigmoid,descending 2. Retroflexed views revealed internal hemorrhoids 3. Retroflexed views revealed small internal hemorrhoids 4. Revealed external hemorrhoids. - Anemia, blood loss. Getting transfused for HH 6.8/21.4. - Gastric ulcer, gastritis, duodenitis. Protonix 40mg po BID - Nodular mucosa with nondistention of stomach. S/P EUS (03/19/17)---> Gastric ulcer, unremarkable endoscopic ultrasound. - Anemia, acute blood loss. HH 6.9/19.2. - Elevated LFTs. CT Scan abdomen and pelvis (03/17/17)---> Mildly nonspecific bowel gas pattern which could indicate gastroenteritis and or ileus. There is no evidence of obstruction. Hepatic steatosis. AFP 3.5, CEA 2.0, Ca 19.9 8.6. Hepatitis negative. T. Bili 0.4, AST 28, ALT 15, Alk Phosph 44 - ETOH abuse 4-8 beers daily. DT precautions per attending. PLAN: - LEON - Cont. PPI - Avoid NSAIDs and ASA - Monitor HH - Transfuse as necessary - Supportive care - Rpt. EGD in 2 months - Further recommendations to follow based on results of above - PT seen and examined by Dr. Faustin and myself and this note is written on her behalf (Azeb Chavez) Physician Comments ok to dc home from [facility] point if dc fu office avoid nsaids gi will sign off (Griselda Faustin MD) Azeb Chavez Mar 20, 2017 18:02 Griselda Faustin MD Mar 20, 2017 19:46
[2017-03-20] MEDS: PANTOPRAZOLE SOD 40 MG DELAYED RELEASE TAB PO SCH (21:36)
[2017-03-20] MEDS ORDERED: TEMAZEPAM 7.5 MG CAP PO ONE (22:00)
[2017-03-21] VITALS (10 sets, daily range): BP systolic 118–144; BP diastolic 80–102; PULSE 68–103; RESP 16–20; TEMP 98–98.9; O2SAT 96–98
[2017-03-21] MEDS: oxyCODONE/ACETAMINOPHEN 5 MG/325 MG TAB PO PRN ×2 (00:06→10:03)
[2017-03-21] MEDS: SODIUM CHLOR 0.9% 1000 ML INJ 1,000 ML IV SCH ×4 (02:55→18:03)
[2017-03-21 07:35] LABS: HEMATOCRIT 23.5 % (39.0-51.0); MEAN CELL VOLUME 81.6 FL (80.0-100.0); MEAN CORPUSCULAR HEMOGLOBIN 26.7 PG (27.0-34.0); MEAN CORPUSCULAR HGB CONC 32.7 % (32.0-36.0); PLATELET COUNT 216 TH/MM3 (150-450); RED BLOOD COUNT 2.88 MIL/MM3 (4.50-5.90); RED CELL DISTRIBUTION WIDTH 17.5 % (11.6-17.2); REVIEW FLAG FINAL; WHITE BLOOD COUNT 5.3 TH/MM3 (4.0-11.0)
[2017-03-21] MEDS: SODIUM CHLORIDE 0.9% FLUSH 10 ML FLUSH IV FLUSH SCH (09:55)
[2017-03-21] MEDS: MULTIVITAMIN TAB PO SCH (10:01)
[2017-03-21] MEDS: PANTOPRAZOLE SOD 40 MG DELAYED RELEASE TAB PO SCH (10:01)
[2017-03-21] MEDS: FOLIC ACID 1 MG TAB PO SCH (10:01)
[2017-03-21] MEDS: DOCUSATE SODIUM 50 MG/SENNA 8.6 MG TAB PO SCH (10:01)
[2017-03-21] MEDS: THIAMINE HCL 100 MG TAB PO SCH (10:02)
[2017-03-21 14:41] LABS: HEMATOCRIT 25.2 % (39.0-51.0)
== END 2017-03-21 19:57 | disposition home or self-care (01) | DRG 378 ==
LOC: NEPD 14:53 → NEDA 17:55 → NEPHCDU 19:38 → HOCB 03-18 16:58
PROVIDERS: ADMIT Family Medicine; ATTEND Family Medicine
PROC: 30233N1 Transfusion of Nonautologous Red Blood Cells into Peripheral Vein, Percutaneous Approach (ICD-10-PCS; 2017-03-16)
PROC: 0DB98ZX Excision of Duodenum, Via Natural or Artificial Opening Endoscopic, Diagnostic (ICD-10-PCS; 2017-03-17)
PROC: 0DB78ZX Excision of Stomach, Pylorus, Via Natural or Artificial Opening Endoscopic, Diagnostic (ICD-10-PCS; 2017-03-17)
PROC: 0DB68ZX Excision of Stomach, Via Natural or Artificial Opening Endoscopic, Diagnostic (ICD-10-PCS; 2017-03-17)
PROC: 0DJD8ZZ Inspection of Lower Intestinal Tract, Via Natural or Artificial Opening Endoscopic (ICD-10-PCS; principal; 2017-03-18 12:40)
PROC: 0DJ08ZZ Inspection of Upper Intestinal Tract, Via Natural or Artificial Opening Endoscopic (ICD-10-PCS; 2017-03-19)
DX: K92.1 Melena (principal); D62 Acute posthemorrhagic anemia; I10 Essential (primary) hypertension; F10.230 Alcohol dependence with withdrawal, uncomplicated; E16.2 Hypoglycemia, unspecified; F41.9 Anxiety disorder, unspecified; F32.9 Major depressive disorder, single episode, unspecified; K57.30 Diverticulosis of large intestine without perforation or abscess without bleeding; K64.8 Other hemorrhoids; K29.80 Duodenitis without bleeding; K44.9 Diaphragmatic hernia without obstruction or gangrene; K29.70 Gastritis, unspecified, without bleeding; K25.4 Chronic or unspecified gastric ulcer with hemorrhage; Z86.010 Personal history of colon polyps; Z59.0 Homelessness
CPT/HCPCS: 36430; 43259; 74177; 80048; 80053; 80074; 80307; 82105; 82378; 83036; 83735; 85014; 85018; 85025; 85027; 86301; 86850; 86900; 86901; 86920; 88305; 88312; 93005; C9113; J2405; J3010; J7030; P9016; Q9963; Q9967

== ENCOUNTER 2017-04-05 17:46 | Emergency (ER) | payer OTHER ==
[~2017-04-05] VITALS: Ht 177.8 cm; Wt 75.0 kg
[~2017-04-05 17:46] MED LIST changes: -BACT800T5 PO; -CEPH-460 PO; +OXYC1TAB63 PO; +PANT40TA3 PO
--- NOTE | 2017-04-05 18:30 | PD ---
HPI Chief Complaint: Psychiatric Symptoms Time Seen by Provider: 18:30 Travel History International Travel<30 days: No Contact w/Intl Traveler<30days: No Traveled to known affect area: No History of Present Illness HPI Patient is a 51-year-old male brought in by police under Miranda act. Apparently he was encountered leaning up against a trailer heavily intoxicated and then stated he wanted to kill himself. He was complaining of chronic back pain per EMS. On my arrival the patient is heavily intoxicated, majority of his street is obtained by past medical records. He is under Miranda act police officers filled out the form. Patient has slurred speech and is very difficult to get any additional history from him but he does deny any chest pain shortness breath abdominal pain nausea vomiting diarrhea, denies back pain to me at this time. Review his records shows that he was admitted last month for GI bleeding and had to be transfused. Denies any dark stools or blood stools this time. PFSH Past Medical History Arthritis: No Asthma: No Autoimmune Disease: No Anxiety: No Depression: No Heart Rhythm Problems: No Cancer: No Cardiovascular Problems: No High Cholesterol: No Chemotherapy: No Chest Pain: No Congestive Heart Failure: No COPD: No Cerebrovascular Accident: No Diabetes: No Diminished Hearing: No Endocrine: No Gastrointestinal Disorders: Yes (polyps removed) GERD: No Genitourinary: No Hiatal Hernia: No Hypertension: Yes Immune Disorder: No Kidney Stones: No Musculoskeletal: No Neurologic: No Psychiatric: No Reproductive: No Respiratory: No Immunizations Current: Yes Migraines: No Radiation Therapy: No Renal Failure: No Seizures: No Sickle Cell Disease: No Sleep Apnea: No Thyroid Disease: No Ulcer: Yes Past Surgical History Abdominal Surgery: Yes (polyps removed from colon) AICD: No Arteriovenous Shunt: No Body Medical Devices: PLATES AND SCREWS IN THE NECK Cardiac Surgery: No Ear Surgery: Yes (tubes in ears as child, one ear did not close, surgical closure right) Endocrine Surgery: No Eye Surgery: No Genitourinary Surgery: No Gynecologic Surgery: No Insulin Pump: No Joint Replacement: No Oral Surgery: No Pacemaker: No Thoracic Surgery: No Other Surgery: Yes (hx neck surgery with rods and screws) Social History Alcohol Use: Yes (REGULARLY 4 beers night. ) Tobacco Use: Yes Substance Use: Yes Allergies-Medications (Allergen,Severity, Reaction): Coded Allergies: penicillin G (Unverified Allergy, Intermediate, 02/22/17) Reported Meds & Prescriptions Reported Meds & Active Scripts Active Pantoprazole (Pantoprazole Sodium) 40 Mg Tab 40 Mg PO BID Oxycodone-Acetaminophen 5-325 mg Tab 1 Tab PO Q6H PRN Review of Systems Except as stated in HPI: all other systems reviewed are Neg Physical Exam Narrative GENERAL: Well-developed well-nourished, intoxicated, thin, no distress. SKIN: Focused skin assessment warm/dry. No rash no wound no abrasions no bruises no lacerations seen on his person. HEAD: Atraumatic. Normocephalic. No la signs no raccoons eyes. EYES: Pupils equal and round. No scleral icterus. No injection or drainage. ENT: No nasal bleeding or discharge. Mucous membranes pink and moist. NECK: Trachea midline. No JVD. CARDIOVASCULAR: Regular rate and rhythm. No murmur appreciated. RESPIRATORY: No accessory muscle use. Clear to auscultation. Breath sounds equal bilaterally. GASTROINTESTINAL: Abdomen soft, non-tender, nondistended. Hepatic and splenic margins not palpable. MUSCULOSKELETAL: No obvious deformities. No clubbing. No cyanosis. No edema. NEUROLOGICAL: Awake and alert. No obvious cranial nerve deficits. Follows commands in all 4 extremities.. Slurred speech. PSYCHIATRIC: Appropriate mood and affect; insight and judgment normal. Data Data Last Documented VS Vital Signs Date Time Temp Pulse Resp B/P (MAP) Pulse Ox O2 Delivery O2 Flow Rate FiO2 04/05/17 19:53 91 20 104/59 (74) 98 Room Air Orders Orders Complete Blood Count With Diff (04/05/17 18:13) Comprehensive Metabolic Panel (04/05/17 18:13) Psych Screen (04/05/17 18:13) Drug Screen, Random Urine (04/05/17 18:13) Alcohol (Ethanol) (04/05/17 18:13) Lorazepam (Ativan) (04/05/17 21:45) Labs Laboratory Tests Test 04/05/17 18:20 White Blood Count 8.5 TH/MM3 Red Blood Count 3.89 MIL/MM3 Hemoglobin 9.8 GM/DL Hematocrit 30.6 % Mean Corpuscular Volume 78.7 FL Mean Corpuscular Hemoglobin 25.2 PG Mean Corpuscular Hemoglobin Concent 32.0 % Red Cell Distribution Width 18.8 % Platelet Count 345 TH/MM3 Mean Platelet Volume 6.5 FL Neutrophils (%) (Auto) 37.3 % Lymphocytes (%) (Auto) 54.4 % Monocytes (%) (Auto) 5.7 % Eosinophils (%) (Auto) 2.2 % Basophils (%) (Auto) 0.4 % Neutrophils # (Auto) 3.2 TH/MM3 Lymphocytes # (Auto) 4.6 TH/MM3 Monocytes # (Auto) 0.5 TH/MM3 Eosinophils # (Auto) 0.2 TH/MM3 Basophils # (Auto) 0.0 TH/MM3 CBC Comment AUTO DIFF Differential Total Cells Counted 100 Neutrophils % (Manual) 46 % Band Neutrophils % 1 % Lymphocytes % 42 % Monocytes % 6 % Eosinophils % 5 % Neutrophils # (Manual) 4.0 TH/MM3 Differential Comment FINAL DIFF MANUAL Platelet Estimate NORMAL Platelet Morphology Comment NORMAL Blood Urea Nitrogen 6 MG/DL Creatinine 0.68 MG/DL Random Glucose 94 MG/DL Total Protein 7.4 GM/DL Albumin 3.4 GM/DL Calcium Level 7.8 MG/DL Alkaline Phosphatase 81 U/L Aspartate Amino Transf (AST/SGOT) 34 U/L Alanine Aminotransferase (ALT/SGPT) 22 U/L Total Bilirubin 0.6 MG/DL Sodium Level 136 MEQ/L Potassium Level 3.7 MEQ/L Chloride Level 105 MEQ/L Carbon Dioxide Level 20.2 MEQ/L Anion Gap 11 MEQ/L Estimat Glomerular Filtration Rate 123 ML/MIN Urine Opiates Screen NEG Urine Barbiturates Screen NEG Urine Amphetamines Screen NEG Urine Benzodiazepines Screen NEG Urine Cocaine Screen NEG Urine Cannabinoids Screen NEG Ethyl Alcohol Level 367 MG/DL [facility] Medical Decision Making Medical Screen Exam Complete: Yes Emergency Medical Condition: Yes Differential Diagnosis Anemia, intoxication, suicidal ideation, poor social circumstance. Narrative Course Patient roomed in emergency department, heavily intoxicated alcohol level of 367. Has no medical complaints this time and physical exam reveals no physical exam findings or warmth further workup. Review of his records show that his lowest hemoglobin on last admission was 6.8, today's 9.8. His higher than his discharge level on last visit. Microcytic indices. On last visit he was seen by GI and instructed to follow up for repeat endoscopy in 2 months to determine whether he should have treatment for possible gastric cancer. At this time he is medically stable for psychiatric evaluation and disposition and should he be cleared needs to be held in the emergency department until clinically sober. Diagnosis Primary Impression: Alcohol intoxication Qualified Codes: F10.920 - Alcohol use, unspecified with intoxication, uncomplicated Additional Impression: Suicidal ideations Condition: Stable Geremias Jackson MD Apr 05, 2017 18:30
[2017-04-05 18:44] LABS: AUTOMATED NEUTROPHIL # 3.2 TH/MM3 (1.8-7.7); BASOPHIL % 0.4 % (0.0-2.0); EOSINOPHIL # 0.2 TH/MM3 (0-0.4); EOSINOPHIL % 2.2 % (0.0-4.0); HEMATOCRIT 30.6 % (39.0-51.0); HEMO FLAGS AUTO DIFF; LYMPH % 54.4 % (9.0-44.0); LYMPHOCYTE # 4.6 TH/MM3 (1.0-4.8); MEAN CELL VOLUME 78.7 FL (80.0-100.0); MEAN CORPUSCULAR HEMOGLOBIN 25.2 PG (27.0-34.0); MONO % 5.7 % (0.0-8.0); NEUT % 37.3 % (16.0-70.0); PLATELET COUNT 345 TH/MM3 (150-450); RED BLOOD COUNT 3.89 MIL/MM3 (4.50-5.90); RED CELL DISTRIBUTION WIDTH 18.8 % (11.6-17.2); WHITE BLOOD COUNT 8.5 TH/MM3 (4.0-11.0)
[2017-04-05 19:06] LABS: ANION GAP 11 MEQ/L (5-15); AST (GOT) 34 U/L (15-37); BICARBONATE 20.2 MEQ/L (21.0-32.0); BLOOD UREA NITROGEN 6 MG/DL (7-18); CHLORIDE 105 MEQ/L (98-107); GLOMERULAR FILTRATION RATE 123 ML/MIN (>89); POTASSIUM 3.7 MEQ/L (3.5-5.1); SODIUM (NA) 136 MEQ/L (136-145)
[2017-04-05 19:07] LABS: BANDS 1 % (0-6); EOSINOPHILS 5 % (0-4); PLATELET ESTIMATE SMEAR NORMAL (NORMAL); PLATELET MORPHOLOGY NORMAL (NORMAL); POLYS (SEG NEUTROPHILS) 46 % (16-70); SCAN/DIFF FINAL DIFF MANUAL; WBC DIFF SAMPLE 100
[2017-04-05 19:30] LABS: ALKALINE PHOSPHATASE 81 U/L (45-117); ALT (GPT) 22 U/L (12-78); TOTAL BILIRUBIN ADULT 0.6 MG/DL (0.2-1.0)
[2017-04-05 19:31] LABS: ALCOHOL 367 MG/DL (0-5)
[2017-04-05 19:53] VITALS: BP 104/59; PULSE 91; RESP 20; O2SAT 98
[2017-04-05] MEDS ORDERED: LORazepam 2 MG TAB PO ONE (21:45)
[2017-04-06 09:34] VITALS: BP 110/62; PULSE 80; RESP 16; O2SAT 97
[2017-04-06] MEDS ORDERED: LORazepam 2 MG/ML VIAL IV PUSH PRN ×4 (13:45)
[2017-04-06] MEDS ORDERED: FLUMAZENIL 0.5 MG/5 ML VIAL IV PUSH PRN (13:45)
[2017-04-06] MEDS ORDERED: LORazepam 1 MG TAB PO PRN (13:45)
[2017-04-06] MEDS ORDERED: LORazepam 2 MG TAB PO PRN (13:45)
--- NOTE | 2017-04-06 19:46 | PD ---
History of Present Illness Chief Complaint: Psychiatric Symptoms Time Seen by Provider: 19:30 Travel History International Travel<30 Days: No Contact w/Intl Traveler<30days: No Known affected area: No Legal Status Legal Status: Miranda Act Miranda Act Signed By: Geno Delong History of Present Illness: History of Present Illness HPI Patient is a 51-year-old male with reported history of anxiety disorder and alcohol abuse brought in by police under a Miranda act. The miranda act alleges that he was found " leaning up against a trailer highly intoxicated. He was confused and unsure as to where he was. He stated he wanted to kill himself because he was an alcoholic". His BAL on arrival to ED was 367. The patient was allowed to sober up in safe environment and was placed under CIWA protocol. He presented no behavioral concerns while he was under observation. No suicidality. EMR reviewed. He has had several ed visits related to his alcohol use disorder as well as one visit for anxiety complaints. Patient is seen in J pod. Awake, alert and oriented male who appears of stated age. He is clinically sober with clear speech and ambulating well. No signs of withdrawal. When asked why he is in ED states " Honestly I don't remember. I was drunk". He denies that he drinks on a daily basis and admits to only having a 4 pack on " some nights". There is no psychosis and no deb.no suicidal or homicidal ideation, intent or plan. He is medication seeking and specifically asks for Klonopin or Ativan and stat es " the nurse said I can have it every four hours". He does not appear to be interested at this time to seek assistance for his use of alcohol. PFSH Past Medical History Arthritis: No Asthma: No Autoimmune Disease: No Anxiety: No Depression: No Heart Rhythm Problems: No Cancer: No Cardiovascular Problems: No High Cholesterol: No Chemotherapy: No Chest Pain: No Congestive Heart Failure: No COPD: No Cerebrovascular Accident: No Diabetes: No Diminished Hearing: No Endocrine: No Gastrointestinal Disorders: Yes (polyps removed) GERD: No Genitourinary: No Hiatal Hernia: No Hypertension: Yes Immune Disorder: No Kidney Stones: No Musculoskeletal: No Neurologic: No Psychiatric: No Reproductive: No Respiratory: No Immunizations Current: Yes Migraines: No Radiation Therapy: No Renal Failure: No Seizures: No Sickle Cell Disease: No Sleep Apnea: No Thyroid Disease: No Ulcer: Yes Past Surgical History Abdominal Surgery: Yes (polyps removed from colon) AICD: No Arteriovenous Shunt: No Body Medical Devices: PLATES AND SCREWS IN THE NECK Cardiac Surgery: No Ear Surgery: Yes (tubes in ears as child, one ear did not close, surgical closure right) Endocrine Surgery: No Eye Surgery: No Genitourinary Surgery: No Gynecologic Surgery: No Insulin Pump: No Joint Replacement: No Oral Surgery: No Pacemaker: No Thoracic Surgery: No Other Surgery: Yes (hx neck surgery with rods and screws) Psychiatric History Psychiatric History Hx Psychiatric Treatment: HX AT [facility]. Reports he was seen there 2 months ago and was prescribed Buspar. History of Inpatient Treatment: Yes ([facility]) Guns or firearms in home: No Social History Single male, unemployed, homeless for the past 4 months. Hx Alcohol Use: Yes (REGULARLY 4 beers night. ) Hx Tobacco Use: Yes Hx Substance Use: Yes Substance Use Type: Alcohol Other Substances Used: DENIES HX OF WITHDRAWAL SYMPTOMS Hx of Substance Use Treatment: Yes Family Psychiatric History None reported Allergies-Medications (Allergen,Severity, Reaction): Coded Allergies: penicillin G (Unverified Allergy, Intermediate, 02/22/17) Reported Meds & Prescriptions Reported Meds & Active Scripts Active Pantoprazole (Pantoprazole Sodium) 40 Mg Tab 40 Mg PO BID Oxycodone-Acetaminophen 5-325 mg Tab 1 Tab PO Q6H PRN Review of Systems Except as stated in HPI: all other systems reviewed are Neg Exam Alert: Yes [place]: Person (ox4) Mood: Calm Affect: Appropriate Speech: Clear, Logical Eye Contact: Normal Memory Intact: Comment (No gross abnormality) Hallucinations: Other (Negative) Delusions: No Suicidal: Ideation (Negative) Homicidal: Ideation (Negative) Insight/Judgement Poor as to substance use. Not impaired. MDM Medical Decision Making Medical Record Reviewed: Yes Assessment/Plan Patient is a 51-year-old male with reported history of anxiety disorder and alcohol abuse brought in by police under a Miranda act. The miranda act alleges that he was found " leaning up against a trailer highly intoxicated. He was confused and unsure as to where he was. He stated he wanted to kill himself because he was an alcoholic". His BAL on arrival to ED was 367. The patient was allowed to sober up in safe environment and was placed under CIWA protocol. He presented no behavioral concerns while he was under observation. No suicidality. He does not meet criteria for Miranda act and does not present any unstable mental illness as defined under the Miranda act. He was intoxicated when the Miranda act was initiated and does not remember saying that he wanted to kill himself. The BA is lifted. He will follow up with [facility]. Orders Orders Lorazepam (Ativan) (04/05/17 21:45) Diet Regular Basic (04/06/17 Breakfast) Alcohol Withdrawal Asmt-Ciwa ONCE (04/06/17 13:37) Flumazenil Inj (Romazicon Inj) (04/06/17 13:45) Lorazepam (Ativan) (04/06/17 13:45) Lorazepam Inj (Ativan Inj) (04/06/17 13:45) Lorazepam (Ativan) (04/06/17 13:45) Lorazepam Inj (Ativan Inj) (04/06/17 13:45) Lorazepam Inj (Ativan Inj) (04/06/17 13:45) Lorazepam Inj (Ativan Inj) (04/06/17 13:45) Diet Regular Basic (04/06/17 Dinner) Results Vital Signs Date Time Temp Pulse Resp B/P (MAP) Pulse Ox O2 Delivery O2 Flow Rate FiO2 04/06/17 16:37 04/06/17 09:34 80 16 110/62 (78) 97 Room Air 04/05/17 19:53 91 20 104/59 (74) 98 Room Air Diagnosis Primary Impression: Alcohol dependence with acute alcoholic intoxication Ruled Out: Suicidal ideations Psychiatrically Cleared: Yes Med/ Other Pt Specific Info: No Meds Exist/No RX given Disposition: 01 DISCHARGE HOME Condition: Stable Problem Qualifiers Primary Impression: Alcohol dependence with acute alcoholic intoxication Qualified Codes: F10.220 - Alcohol dependence with intoxication, uncomplicated JustoYamilet Jennifer Garcia [facility] Apr 06, 2017 19:46
--- NOTE | 2017-04-06 19:59 | PD ---
Physical Exam Date Seen by Provider: Apr 06, 2017 Time Seen by Provider: 19:58 Narrative The patient was brought under Miranda act for suicidal ideation. He was intoxicated at the time. The Miranda act has lifted by the psychiatric nurse practitioner. I has been asked to discharge the patient. The patient has no medical complaints. He denies any suicidal ideations at this time. He would like to go home. Data Data Last Documented VS Vital Signs Date Time Temp Pulse Resp B/P (MAP) Pulse Ox O2 Delivery O2 Flow Rate FiO2 04/06/17 16:37 04/06/17 09:34 80 16 97 Room Air Orders Orders Complete Blood Count With Diff (04/05/17 18:13) Comprehensive Metabolic Panel (04/05/17 18:13) Psych Screen (04/05/17 18:13) Drug Screen, Random Urine (04/05/17 18:13) Alcohol (Ethanol) (04/05/17 18:13) Lorazepam (Ativan) (04/05/17 21:45) Diet Regular Basic (04/06/17 Breakfast) Alcohol Withdrawal Asmt-Ciwa ONCE (04/06/17 13:37) Flumazenil Inj (Romazicon Inj) (04/06/17 13:45) Lorazepam (Ativan) (04/06/17 13:45) Lorazepam Inj (Ativan Inj) (04/06/17 13:45) Lorazepam (Ativan) (04/06/17 13:45) Lorazepam Inj (Ativan Inj) (04/06/17 13:45) Lorazepam Inj (Ativan Inj) (04/06/17 13:45) Lorazepam Inj (Ativan Inj) (04/06/17 13:45) Diet Regular Basic (04/06/17 Dinner) Labs Laboratory Tests Test 04/05/17 18:20 White Blood Count 8.5 TH/MM3 Red Blood Count 3.89 MIL/MM3 Hemoglobin 9.8 GM/DL Hematocrit 30.6 % Mean Corpuscular Volume 78.7 FL Mean Corpuscular Hemoglobin 25.2 PG Mean Corpuscular Hemoglobin Concent 32.0 % Red Cell Distribution Width 18.8 % Platelet Count 345 TH/MM3 Mean Platelet Volume 6.5 FL Neutrophils (%) (Auto) 37.3 % Lymphocytes (%) (Auto) 54.4 % Monocytes (%) (Auto) 5.7 % Eosinophils (%) (Auto) 2.2 % Basophils (%) (Auto) 0.4 % Neutrophils # (Auto) 3.2 TH/MM3 Lymphocytes # (Auto) 4.6 TH/MM3 Monocytes # (Auto) 0.5 TH/MM3 Eosinophils # (Auto) 0.2 TH/MM3 Basophils # (Auto) 0.0 TH/MM3 CBC Comment AUTO DIFF Differential Total Cells Counted 100 Neutrophils % (Manual) 46 % Band Neutrophils % 1 % Lymphocytes % 42 % Monocytes % 6 % Eosinophils % 5 % Neutrophils # (Manual) 4.0 TH/MM3 Differential Comment FINAL DIFF MANUAL Platelet Estimate NORMAL Platelet Morphology Comment NORMAL Blood Urea Nitrogen 6 MG/DL Creatinine 0.68 MG/DL Random Glucose 94 MG/DL Total Protein 7.4 GM/DL Albumin 3.4 GM/DL Calcium Level 7.8 MG/DL Alkaline Phosphatase 81 U/L Aspartate Amino Transf (AST/SGOT) 34 U/L Alanine Aminotransferase (ALT/SGPT) 22 U/L Total Bilirubin 0.6 MG/DL Sodium Level 136 MEQ/L Potassium Level 3.7 MEQ/L Chloride Level 105 MEQ/L Carbon Dioxide Level 20.2 MEQ/L Anion Gap 11 MEQ/L Estimat Glomerular Filtration Rate 123 ML/MIN Urine Opiates Screen NEG Urine Barbiturates Screen NEG Urine Amphetamines Screen NEG Urine Benzodiazepines Screen NEG Urine Cocaine Screen NEG Urine Cannabinoids Screen NEG Ethyl Alcohol Level 367 MG/DL [facility] Medical Record Reviewed: Yes Supervised Visit with LORELEI: No Diagnosis Primary Impression: Alcohol dependence with acute alcoholic intoxication Qualified Codes: F10.220 - Alcohol dependence with intoxication, uncomplicated Ruled Out: Suicidal ideations Referrals: Primary Care Physician call for appointment [facility] Patient Instructions: Abuse of Alcohol (ED), General Instructions Additional Instruction: Drink alcohol in moderation or not at all. Follow-up with your primary care physician. Return to the emergency department for any acute worsening of symptoms. Med/Other Pt SpecificInfo: No Change to Meds Disposition: 01 DISCHARGE HOME Condition: Stable Madelin Berumen BINH Apr 06, 2017 19:59
[2017-04-06 20:16] VITALS: BP 130/92; PULSE 101; RESP 18
[2017-04-06 20:19] VITALS: BP 135/66; PULSE 59; RESP 18
== END 2017-04-06 20:20 | disposition home or self-care (01) ==
LOC: NEPD 17:46 → NEPJ 04-06 20:20
DX: F10.220 Alcohol dependence with intoxication, uncomplicated (principal); Y90.8 Blood alcohol level of 240 mg/100 ml or more; Z72.0 Tobacco use
CPT/HCPCS: 80053; 80307; 85007; 85027; 99284

== ENCOUNTER 2017-09-27 04:13 | Observation (INO) | payer SELFPAY ==
[2017-09-27] VITALS (8 sets, daily range): BP systolic 110–145; BP diastolic 65–95; PULSE 89–117; RESP 15–20; TEMP 99.1–99.3; O2SAT 95–99
[~2017-09-27] VITALS: Ht 177.8 cm; Wt 62.9 kg
--- NOTE | 2017-09-27 04:36 | PD ---
HPI Chief Complaint: Pain: Acute or Chronic Time Seen by Provider: 04:23 Travel History International Travel<30 days: No Contact w/Intl Traveler<30days: No Traveled to known affect area: No History of Present Illness HPI 51-year-old white male presents emergency department by EMS for evaluation of right lower leg swelling 1 week. Patient states that he was going to go to [facility] but there is no beds available so we decided to come to the ER for evaluation. He states that he is not sure if he may have cirrhosis due to his chronic alcohol abuse. Patient denies any trauma. He denies any chest pain or shortness of breath. He has noted some increasing swelling and pain to his right lower leg. No suicidal homicidal ideation. He is currently homeless living on the streets. PFSH Past Medical History Narrative Medical Chronic alcohol abuse, GI bleed Arthritis: No Asthma: No Autoimmune Disease: No Anxiety: No Depression: No Heart Rhythm Problems: No Cancer: No Cardiovascular Problems: No High Cholesterol: No Chemotherapy: No Chest Pain: No Congestive Heart Failure: No COPD: No Cerebrovascular Accident: No Diabetes: No Diminished Hearing: No Endocrine: No Gastrointestinal Disorders: Yes (polyps removed) GERD: No Genitourinary: No Hiatal Hernia: No Heparin Induced Thrombocytopen: No Hypertension: Yes Immune Disorder: No Kidney Stones: No Musculoskeletal: No Neurologic: No Psychiatric: No Reproductive: No Respiratory: No Immunizations Current: Yes Migraines: No Radiation Therapy: No Renal Failure: No Seizures: No Sickle Cell Disease: No Sleep Apnea: No Thyroid Disease: No Ulcer: Yes Past Surgical History Abdominal Surgery: Yes (polyps removed from colon) AICD: No Arteriovenous Shunt: No Body Medical Devices: PLATES AND SCREWS IN THE NECK Cardiac Surgery: No Ear Surgery: Yes (tubes in ears as child, one ear did not close, surgical closure right) Endocrine Surgery: No Eye Surgery: No Genitourinary Surgery: No Gynecologic Surgery: No Insulin Pump: No Joint Replacement: No Neurologic Surgery: No Oral Surgery: No Pacemaker: No Thoracic Surgery: No Other Surgery: Yes (hx neck surgery with rods and screws) Social History Alcohol Use: Yes (REGULARLY 4 beers night. ) Tobacco Use: No Substance Use: Yes Allergies-Medications (Allergen,Severity, Reaction): Coded Allergies: penicillin G (Unverified Allergy, Intermediate, 09/27/17) Reported Meds & Prescriptions Reported Meds & Active Scripts Active No Active Prescriptions or Reported Medications Review of Systems Except as stated in HPI: all other systems reviewed are Neg Musculoskeletal: Positive: Myalgias, Edema, Pain, No: Arthralgias, Limited ROM , Weakness, Cramping Skin: No Rash Physical Exam Narrative GENERAL: This is a well-nourished, well-developed patient, in no apparent distress. Patient smells strongly of alcohol. SKIN: No rashes, ecchymoses or lesions. Warm and dry. HEAD: Atraumatic. Normocephalic. EYES: PERRL, EOMI, no discharge or injection. No scleral icterus. EARS: Clear NOSE: Nasal turbinates appear normal. THROAT: Mucosa pink and moist. Airway patent. NECK: Trachea midline. supple, moves head freely. LUNGS: Clear to auscultation. CV: Regular in rhythm. ABDOMEN: Soft nontender. EXT: No clubbing cyanosis. Patient is right lower leg from the proximal calf down into the ankle is mildly edematous compared to the left leg. There is no erythema, warmth or cords. No Homans sign. He does complain of some mild pain to palpation. He has intact sensation with good distal pulses. No pain in the foot, ankle, knee, hip. Data Data Last Documented VS Vital Signs Date Time Temp Pulse Resp B/P (MAP) Pulse Ox O2 Delivery O2 Flow Rate FiO2 09/27/17 04:16 99.2 110 18 120/65 (83) 99 Orders Orders D-Dimer (09/27/17 04:31) Chlordiazepoxide (Librium) (09/27/17 05:00) Labs Laboratory Tests Test 09/27/17 04:52 D-Dimer Quantitative (PE/DVT) 5.26 MG/L FEU [facility] Medical Decision Making Medical Screen Exam Complete: Yes Emergency Medical Condition: Yes Medical Record Reviewed: Yes Interpretation(s) Laboratory Tests Test 09/27/17 04:52 D-Dimer Quantitative (PE/DVT) 5.26 MG/L FEU Differential Diagnosis Differential diagnosis: DVT, PVD, tendinitis, contusion, dependent edema Narrative Course Patient's d-dimer is +5.26. We will ultrasound his right lower extremity to rule out DVT. Patient is given Librium 50 mg p.o. for mild withdrawal The oncoming LORELEI will follow up on the patient's ultrasound and make the final diagnosis and disposition on this patient. Scripts No Active Prescriptions or Reported Meds Condition: Bud Haines Sep 27, 2017 04:36
[2017-09-27] MEDS ORDERED: chlordiazePOXIDE 25 MG CAP PO ONE (05:00)
--- NOTE | 2017-09-27 07:55 | RADRPT ---
EXAM DATE/TIME: 09/27/2017 07:18 [place] COMPARISON: No previous studies available for comparison. INDICATIONS : Right leg swelling. MEDICAL HISTORY : Hypertension. Head trauma. Dizziness. Ulcer. IBD. ETOH abuse. SURGICAL HISTORY : Colon polyp removal. Neck surgery. Ear tubes. ENCOUNTER: Initial ACUITY: 1 week PAIN SCORE: 7/10 LOCATION: Right leg. TECHNIQUE: Venous ultrasound of the leg was performed from the inguinal ligament to the proximal calf. Real-tammy e, color Doppler and spectral tracing, compression and augmentation techniques were used. FINDINGS: Extensive occlusive and nonocclusive deep venous thrombus is noted within the right superficial femor al, popliteal, peroneal, and posterior tibial veins. CONCLUSION: Extensive occlusive and nonocclusive deep venous thrombus within the right superficial femoral, popli teal, peroneal and posterior tibial veins. Geremias Garibay MD on September 27, 2017 at 7:50 Board Certified Radiologist. This report was verified electronically.
[2017-09-27] MEDS ORDERED: SODIUM CHLOR 0.9% 1000 ML INJ 1,000 ML IV SCH (08:08)
[2017-09-27] MEDS ORDERED: KETOROLAC TROMETHAMINE 30 MG/ML (IVP) VIAL IVP ONE (08:15)
[2017-09-27] MEDS ORDERED: SODIUM CHLORIDE 0.9% FLUSH 10 ML FLUSH IV FLUSH PRN ×2 (08:15→10:45)
[2017-09-27] MEDS ORDERED: HEPARIN-D5W 25,000 U/250 ML 250 ML IV PRN (08:15)
--- NOTE | 2017-09-27 08:18 | PD ---
Physical Exam Date Seen by Provider: Sep 27, 2017 Time Seen by Provider: 08:14 Narrative 51-year-old alcoholic male previously seen by Bud Daley PA-C and turned over to me at change of shift awaiting ultrasound for his right lower extremity swelling. Positive d-dimer is noted. Please see Vega Daley's note for previous history and physical. Data Data Last Documented VS Vital Signs Date Time Temp Pulse Resp B/P (MAP) Pulse Ox O2 Delivery O2 Flow Rate FiO2 09/27/17 08:46 117 18 136/93 (107) 97 Room Air 09/27/17 04:16 99.2 Orders Orders D-Dimer (09/27/17 04:31) Chlordiazepoxide (Librium) (09/27/17 05:00) Us Leg Venous Doppler (09/27/17 06:39) Complete Blood Count With Diff (09/27/17 08:08) Comprehensive Metabolic Panel (09/27/17 08:08) Prothrombin Time / Inr (Pt) (09/27/17 08:08) Act Partial Throm Time (Ptt) (09/27/17 08:08) Iv Access Insert/Monitor (09/27/17 08:08) Ecg Monitoring (09/27/17 08:08) Oximetry (09/27/17 08:08) Sodium Chlor 0.9% 1000 Ml Inj (Ns 1000 M (09/27/17 08:08) Sodium Chloride 0.9% Flush (Ns Flush) (09/27/17 08:15) Electrocardiogram (09/27/17 08:08) Ketorolac Inj (Toradol Inj) (09/27/17 08:15) Heparin-D5w 25,000 U/250 Ml (Heparin-D5w (09/27/17 08:15) Cbc No Diff, Includes Plts (09/30/17 06:00) Act Partial Throm Time (Ptt) (09/27/17 15:08) Alcohol (Ethanol) (09/27/17 08:13) Alcohol Withdrawal Asmt-Ciwa Q4HX18 (09/27/17 08:19) Flumazenil Inj (Romazicon Inj) (09/27/17 08:30) Lorazepam (Ativan) (09/27/17 08:30) Lorazepam Inj (Ativan Inj) (09/27/17 08:30) Lorazepam (Ativan) (09/27/17 08:30) Lorazepam Inj (Ativan Inj) (09/27/17 08:30) Lorazepam Inj (Ativan Inj) (09/27/17 08:30) Lorazepam Inj (Ativan Inj) (09/27/17 08:30) Admit Order (Ed Use Only) (09/27/17 10:37) Place In Observation (09/27/17 ) Vital Signs (Adult) Q4H (09/27/17 10:37) Activity Bed Rest (09/27/17 10:37) Last Sawyer / Telemetry .CONTINUOUS (09/27/17 10:37) Intake + Output RUPESH.QSHIFT (09/27/17 10:37) Diet Npo (09/27/17 Lunch) Sodium Chlor 0.9% 1000 Ml Inj (Ns 1000 M (09/27/17 11:00) Sodium Chloride 0.9% Flush (Ns Flush) (09/27/17 10:45) Sodium Chloride 0.9% Flush (Ns Flush) (09/27/17 21:00) Acetaminophen (Tylenol) (09/27/17 10:45) Ondansetron Inj (Zofran Inj) (09/27/17 10:45) Naloxone Inj (Narcan Inj) (09/27/17 10:45) Chlordiazepoxide (Librium) (09/27/17 10:45) Labs Laboratory Tests Test 09/27/17 04:52 09/27/17 08:45 D-Dimer Quantitative (PE/DVT) 5.26 MG/L FEU White Blood Count 7.8 TH/MM3 Red Blood Count 4.71 MIL/MM3 Hemoglobin 11.6 GM/DL Hematocrit 35.9 % Mean Corpuscular Volume 76.3 FL Mean Corpuscular Hemoglobin 24.6 PG Mean Corpuscular Hemoglobin Concent 32.2 % Red Cell Distribution Width 24.5 % Platelet Count 381 TH/MM3 Mean Platelet Volume 7.1 FL Neutrophils (%) (Auto) 52.8 % Lymphocytes (%) (Auto) 33.2 % Monocytes (%) (Auto) 12.9 % Eosinophils (%) (Auto) 0.9 % Basophils (%) (Auto) 0.2 % Neutrophils # (Auto) 4.1 TH/MM3 Lymphocytes # (Auto) 2.6 TH/MM3 Monocytes # (Auto) 1.0 TH/MM3 Eosinophils # (Auto) 0.1 TH/MM3 Basophils # (Auto) 0.0 TH/MM3 CBC Comment DIFF FINAL Differential Comment Prothrombin Time 9.3 SEC Prothromb Time International Ratio 0.9 RATIO Activated Partial Thromboplast Time 26.8 SEC Blood Urea Nitrogen 2 MG/DL Creatinine 0.75 MG/DL Random Glucose 89 MG/DL Total Protein 7.8 GM/DL Albumin 3.1 GM/DL Calcium Level 9.3 MG/DL Alkaline Phosphatase 118 U/L Aspartate Amino Transf (AST/SGOT) 74 U/L Alanine Aminotransferase (ALT/SGPT) 31 U/L Total Bilirubin 0.3 MG/DL Sodium Level 137 MEQ/L Potassium Level 3.7 MEQ/L Chloride Level 99 MEQ/L Carbon Dioxide Level 22.9 MEQ/L Anion Gap 15 MEQ/L Estimat Glomerular Filtration Rate 110 ML/MIN Ethyl Alcohol Level 172 MG/DL MDM Medical Record Reviewed: Yes Supervised Visit with LORELEI: Yes Differential Diagnosis Chronic alcohol abuse. Elevated d-dimer. DVT. Narrative Course Patient does not fact have a large DVT on ultrasound. Labs ordered including CBC, CMP, coagulation studies, and IV access is obtained. Patient is given 30 mg Toradol IV for pain. Heparin drip for DVT treatment is ordered. I recommend hospitalization for this patient considering his chronic alcohol use and risk for failure of treatment on an outpatient basis. Patient is placed on the CIWA protocol. Calls placed to the hospitalist for admission. Diagnosis Primary Impression: DVT (deep venous thrombosis) Qualified Codes: I82.4Z1 - Acute embolism and thrombosis of unspecified deep veins of right distal lower extremity Additional Impression: Alcohol withdrawal Qualified Codes: F10.230 - Alcohol dependence with withdrawal, uncomplicated Scripts No Active Prescriptions or Reported Meds Condition: Stable Stevan Treviño Sep 27, 2017 08:17
[2017-09-27] MEDS ORDERED: LORazepam 1 MG TAB PO PRN (08:30)
[2017-09-27] MEDS ORDERED: FLUMAZENIL 0.5 MG/5 ML VIAL IV PUSH PRN (08:30)
[2017-09-27] MEDS ORDERED: LORazepam 2 MG/ML VIAL IV PUSH PRN ×4 (08:30)
[2017-09-27] MEDS ORDERED: LORazepam 2 MG TAB PO PRN (08:30)
[2017-09-27 09:10] LABS: AUTOMATED NEUTROPHIL # 4.1 TH/MM3 (1.8-7.7); BASOPHIL % 0.2 % (0.0-2.0); EOSINOPHIL # 0.1 TH/MM3 (0-0.4); EOSINOPHIL % 0.9 % (0.0-4.0); HEMATOCRIT 35.9 % (39.0-51.0); HEMOGLOBIN 11.6 GM/DL (13.0-17.0); INTERNATIONAL NORMALIZED RATIO 0.9 RATIO; LYMPH % 33.2 % (9.0-44.0); LYMPHOCYTE # 2.6 TH/MM3 (1.0-4.8); MEAN CELL VOLUME 76.3 FL (80.0-100.0); MEAN CORPUSCULAR HEMOGLOBIN 24.6 PG (27.0-34.0); MEAN CORPUSCULAR HGB CONC 32.2 % (32.0-36.0); MEAN PLATELET VOLUME 7.1 FL (7.0-11.0); MONO % 12.9 % (0.0-8.0); NEUT % 52.8 % (16.0-70.0); PLATELET COUNT 381 TH/MM3 (150-450); PROTHROMBIN TIME - PATIENT 9.3 SEC (9.8-11.6); RED BLOOD COUNT 4.71 MIL/MM3 (4.50-5.90); RED CELL DISTRIBUTION WIDTH 24.5 % (11.6-17.2); WHITE BLOOD COUNT 7.8 TH/MM3 (4.0-11.0)
[2017-09-27 09:31] LABS: ALBUMIN 3.1 GM/DL (3.4-5.0); ALT (GPT) 31 U/L (12-78); AST (GOT) 74 U/L (15-37); BICARBONATE 22.9 MEQ/L (21.0-32.0); BLOOD UREA NITROGEN 2 MG/DL (7-18); CALCIUM 9.3 MG/DL (8.5-10.1); CHLORIDE 99 MEQ/L (98-107); CREATININE 0.75 MG/DL (0.60-1.30); GLOMERULAR FILTRATION RATE 110 ML/MIN (>89); GLUCOSE,RANDOM 89 MG/DL (74-106); SODIUM (NA) 137 MEQ/L (136-145)
[2017-09-27 09:34] LABS: ALKALINE PHOSPHATASE 118 U/L (45-117); TOTAL BILIRUBIN ADULT 0.3 MG/DL (0.2-1.0); TOTAL PROTEIN 7.8 GM/DL (6.4-8.2)
[2017-09-27] MEDS ORDERED: ONDANSETRON HCL 4 MG/2 ML VIAL IVP PRN (10:45)
[2017-09-27] MEDS ORDERED: NALOXONE HCL 0.4 MG/ML AMP IV PUSH PRN (10:45)
[2017-09-27] MEDS: SODIUM CHLOR 0.9% 1000 ML INJ 1,000 ML IV SCH ×2 (11:00→17:40)
[2017-09-27] MEDS: APIXABAN 5 MG TABLET PO SCH ×2 (12:00→20:36)
--- NOTE | 2017-09-27 14:36 | HHI.HP ---
[facility] No Primary Care Physician Admission Diagnosis DVT/alcoholism Diagnoses: Chief Complaint: Right leg pain Travel History International Travel<30 Days: No Contact w/Intl Traveler <30 Da: No Traveled to Known Affected Are: No History of Present Illness This is a 51-year-old male with current alcohol abuse who presented with right leg pain. Patient stated that he was doing his normal activities and then he started to have pain a few days ago so he came to the hospital. Patient denied any long car rides or being sedentary. Patient had a Doppler done in the emergency department which she was found to have a DVT. Patient denies any nausea,vomiting, abdominal pain, or tremors. He shows no signs of alcohol withdrawal. During my interview with patient his heart rate was in the 80s. Patient stated that his last drink was yesterday. All other review of system reviewed and negative. Past Family Social History Past Medical History Depression HTN Thrombosed external hemorrhoid Alcohol abuse Severe gastritis, duodenitis, diverticulosis, hepatic steatosis Past Surgical History Back and neck surgery Eardrum surgery unilaterally Reported Medications Reported Meds & Active Scripts Active No Active Prescriptions or Reported Medications Allergies: Coded Allergies: penicillin G (Unverified Allergy, Intermediate, 09/27/17) Active Ordered Medications Current Medications Chlordiazepoxide (Librium) 50 mg STAT ONCE PO Last administered on 09/27/17at 05:06; Start 09/27/17 at 05:00; Stop 09/27/17 at 05:01; Status DC Sodium Chloride 1,000 ml @ 1,000 mls/hr Q1H IV Last administered on 09/27/17at 08:54; Start 09/27/17 at 08:08; Stop 09/27/17 at 09:07; Status DC Sodium Chloride (NS Flush) 2 ml UNSCH PRN IV FLUSH FLUSH AFTER USING IV ACCESS ; Start 09/27/17 at 08:15; Stop 09/27/17 at 10:43; Status DC Ketorolac Tromethamine (Toradol Inj) 30 mg ONCE ONCE IVP Last administered on 09/27/17at 08:55; Start 09/27/17 at 08:15; Stop 09/27/17 at 08:16; Status DC Heparin Sodium/ Dextrose 250 ml @ 11.44 mls/ hr TITRATE PRN IV Coagulation Management; Start 09/27/17 at 08:15; Stop 09/27/17 at 09:35; Status DC Flumazenil (Romazicon Inj) 0.2 mg Q1M PRN IV PUSH SEE LABEL COMMENTS; Start at 08:30 Lorazepam (Ativan) 1 mg Q4H PRN PO CIWA 8 - 10; Start 09/27/17 at 08:30 Lorazepam (Ativan Inj) 1 mg Q4H PRN IV PUSH CIWA 8 - 10; Start 09/27/17 at 08: 30 Lorazepam (Ativan) 2 mg Q2H PRN PO CIWA 11-14; Start 09/27/17 at 08:30 Lorazepam (Ativan Inj) 2 mg Q2H PRN IV PUSH CIWA 11-14; Start 09/27/17 at 08:30 Lorazepam (Ativan Inj) 2 mg Q1H PRN IV PUSH CIWA 15-20; Start 09/27/17 at 08:30 Lorazepam (Ativan Inj) 2 mg Q15M PRN IV PUSH CIWA > 20; Start 09/27/17 at 08:30 Sodium Chloride 1,000 ml @ 150 mls/hr Q6H40M IV Last administered on at 11:00; Start 09/27/17 at 11:00 Sodium Chloride (NS Flush) 2 ml UNSCH PRN IV FLUSH FLUSH AFTER USING IV ACCESS ; Start 09/27/17 at 10:45 Sodium Chloride (NS Flush) 2 ml BID IV FLUSH ; Start 09/27/17 at 21:00 Acetaminophen (Tylenol) 650 mg Q4H PRN PO TEMP > 100.4; Start 09/27/17 at 10:45 Ondansetron HCl (Zofran Inj) 4 mg Q6H PRN IVP NAUSEA OR VOMITING; Start at 10:45 Naloxone HCl (Narcan Inj) 0.4 mg UNSCH PRN IV PUSH SEE LABEL COMMENTS; Start at 10:45 Chlordiazepoxide (Librium) 10 mg TID PO Last administered on 09/27/17at 12:00; Start 09/27/17 at 12:00 Apixaban (Eliquis) 10 mg BID PO Last administered on 09/27/17at 12:00; Start at 12:00 Family History CAD in mother Social History The patient is homeless. He drinks up to two 4 packs daily. He denies smoking or illicit drugs. Physical Exam Vital Signs Vital Signs Date Time Temp Pulse Resp B/P (MAP) Pulse Ox O2 Delivery O2 Flow Rate FiO2 09/27/17 14:25 88 20 97 09/27/17 13:00 89 15 139/89 (106) 96 Room Air 09/27/17 12:33 110 20 110/74 (86) 98 Room Air 09/27/17 10:52 98 17 112/71 (85) 96 Room Air 09/27/17 08:46 117 18 136/93 (107) 97 Room Air 09/27/17 04:16 99.2 110 18 120/65 (83) 99 Physical Exam GENERAL: This is a well-nourished, well-developed patient, in no apparent distress. SKIN: No rashes, ecchymoses or lesions. Cool and dry. HEAD: Atraumatic. Normocephalic. No temporal or scalp tenderness. EYES: Pupils equal round and reactive. Extraocular motions intact. No scleral icterus. No injection or drainage. ENT: Nose without bleeding, purulent drainage or septal hematoma. Throat without erythema, tonsillar hypertrophy or exudate. Uvula midline. Airway patent. NECK: Trachea midline. No JVD or lymphadenopathy. Supple, nontender, no meningeal signs. CARDIOVASCULAR: Regular rate and rhythm without murmurs, gallops, or rubs. RESPIRATORY: Clear to auscultation. Breath sounds equal bilaterally. No wheezes , rales, or rhonchi. GASTROINTESTINAL: Abdomen soft, non-tender, nondistended. No hepato-splenomegaly , or palpable masses. No guarding. MUSCULOSKELETAL: Right lower extremity with some erythema. Tenderness palpation of the right lower extremity with some swelling. Positive Homans signs. NEUROLOGICAL: Awake and alert. Cranial nerves II through XII intact. Motor and sensory grossly within normal limits. Five out of 5 muscle strength in all muscle groups. Normal speech. Laboratory Laboratory Tests Test 09/27/17 04:52 09/27/17 08:45 D-Dimer Quantitative (PE/DVT) 5.26 White Blood Count 7.8 Red Blood Count 4.71 Hemoglobin 11.6 Hematocrit 35.9 Mean Corpuscular Volume 76.3 Mean Corpuscular Hemoglobin 24.6 Mean Corpuscular Hemoglobin Concent 32.2 Red Cell Distribution Width 24.5 Platelet Count 381 Mean Platelet Volume 7.1 Neutrophils (%) (Auto) 52.8 Lymphocytes (%) (Auto) 33.2 Monocytes (%) (Auto) 12.9 Eosinophils (%) (Auto) 0.9 Basophils (%) (Auto) 0.2 Neutrophils # (Auto) 4.1 Lymphocytes # (Auto) 2.6 Monocytes # (Auto) 1.0 Eosinophils # (Auto) 0.1 Basophils # (Auto) 0.0 CBC Comment DIFF FINAL Differential Comment Prothrombin Time 9.3 Prothromb Time International Ratio 0.9 Activated Partial Thromboplast Time 26.8 Blood Urea Nitrogen 2 Creatinine 0.75 Random Glucose 89 Total Protein 7.8 Albumin 3.1 Calcium Level 9.3 Alkaline Phosphatase 118 Aspartate Amino Transf (AST/SGOT) 74 Alanine Aminotransferase (ALT/SGPT) 31 Total Bilirubin 0.3 Sodium Level 137 Potassium Level 3.7 Chloride Level 99 Carbon Dioxide Level 22.9 Anion Gap 15 Estimat Glomerular Filtration Rate 110 Ethyl Alcohol Level 172 Result Diagram: 09/27/1745 09/27/1745 Course Emergency medicine SARAI Calles and she wanted to admit the patient since he is a chronic alcoholic and has a DVT. I told Stevan that DVT can be treated as outpatient and that being a chronic alcoholic does not mean patient should be admitted to the hospital. Stevan stated that he anticipates that patient will withdraw because he is in alcohol. I asked him if he was withdrawing. He stated no. He then stated that patient is homeless and that he cannot afford any anticoagulation. I told him to speak to case management and if they are not able to give him free anticoagulation then we will admit him for that. He and I spoke to case management and they stated that they can give him Eliquis for free. Stevan then call me about 1-2 hours later stating that patient is withdrawing. I asked him patient just had alcohol yesterday and I spoke to you about an 1- 2 ago and now patient is withdrawal. I told him that this is very unlikely. Most patients withdrawal because they abruptly stopped drinking alcohol and he continues to drink. He stated that he is withdrawing because he is tachycardic. 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 When I saw patient he was not withdrawing at all. Patient had no symptoms of alcoholic withdrawal. His heart rate was in the 80s. Most likely that snapshot heart rate they took could have been when patient was exerting himself in which her heart rate can increase naturally. Caprini VTE Risk Assessment Caprini VTE Risk Assessment: Mod/High Risk (score >= 2) Caprini Risk Assessment Model Point Value = 1 Point Value = 2 Point Value = 3 Point Value = 5 Age 41-60 Minor surgery BMI > 25 kg/m2 Swollen legs Varicose veins or History of unexplained or recurrent spontaneous Oral contraceptives or hormone replacement Sepsis (< 1 month) Serious lung disease, including pneumonia (< 1 month) Abnormal pulmonary function Acute myocardial infarction Congestive heart failure (< 1 month) History of inflammatory bowel disease Medical patient at bed rest Age 61-74 Arthroscopic surgery Major open surgery (> 45 min) Laparoscopic surgery (> 45 min) Malignancy Confined to bed (> 72 hours) Immobilizing plaster cast Central venous access Age >= 75 History of VTE Family history of VTE Factor V Leiden Prothrombin [id number] Lupus anticoagulant Anticardiolipin antibodies Elevated serum homocysteine Heparin-induced thrombocytopenia Other congenital or acquired thrombophilia Stroke (< 1 month) Elective arthroplasty Hip, pelvis, or leg fracture Acute spinal cord injury (< 1 month) Prophylaxis Regimen Total Risk Factor Score Risk Level Prophylaxis Regimen 0-1 Low Early ambulation 2 Moderate Order ONE of the following: *Sequential Compression Device (SCD) *Heparin 5000 units SQ BID 3-4 Higher Order ONE of the following medications: *Heparin 5000 units SQ TID *Enoxaparin/Lovenox 40 mg SQ daily (WT < 150 kg, CrCl > 30 mL/min) *Enoxaparin/Lovenox 30 mg SQ daily (WT < 150 kg, CrCl > 10-29 mL/min) *Enoxaparin/Lovenox 30 mg SQ BID (WT < 150 kg, CrCl > 30 mL/min) AND/OR *Sequential Compression Device (SCD) 5 or more Highest Order ONE of the following medications: *Heparin 5000 units SQ TID (Preferred with Epidurals) *Enoxaparin/Lovenox 40 mg SQ daily (WT < 150 kg, CrCl > 30 mL/min) *Enoxaparin/Lovenox 30 mg SQ daily (WT < 150 kg, CrCl > 10-29 mL/min) *Enoxaparin/Lovenox 30 mg SQ BID (WT < 150 kg, CrCl > 30 mL/min) AND *Sequential Compression Device (SCD) Assessment and Plan Assessment and Plan This is a 51-year-old alcoholic with DVT DVT -Start Eliquis since patient can get this for free. Patient is noncompliant. Alcoholic -There are NO signs of alcohol withdrawal. Patient continues to drink. -Education given on cessation. -Start on CIWA protocol. Gastritis/duodenitis -Patient noncompliant. He is supposed to take Protonix. Will start Protonix. DVT prophylaxis -Patient will be on Eliquis. Discussed Condition With patient Susan Lino MD Sep 27, 2017 14:36
[2017-09-27] MEDS: PANTOPRAZOLE SOD 40 MG DELAYED RELEASE TAB PO SCH ×2 (18:22→20:36)
--- NOTE | 2017-09-27 19:50 | EKG ---
Date Performed: 09/27/2017 Time Performed: 09:00:45 PTAGE: 51 years EKG: SINUS TACHYCARDIA Since the previous tracing, no significant change noted ABNORMAL RHYTHM E CG PREVIOUS TRACING : 03/16/2017 19.23 DOCTOR: Reema Dunaway Interpretating Date/Time 09/27/2017 19:47:45
[2017-09-27] MEDS: SODIUM CHLORIDE 0.9% FLUSH 10 ML FLUSH IV FLUSH SCH (20:36)
[2017-09-28] VITALS (9 sets, daily range): BP systolic 129–153; BP diastolic 81–109; PULSE 93–111; RESP 16–20; TEMP 98.7–101.2; O2SAT 94–98
[2017-09-28] MEDS: SODIUM CHLOR 0.9% 1000 ML INJ 1,000 ML IV SCH ×4 (00:48→21:37)
--- NOTE | 2017-09-28 09:34 | RADRPT ---
EXAM DATE/TIME: 09/28/2017 09:20 [place] COMPARISON: CHEST SINGLE AP, January 02, 2017, 13:46. INDICATIONS : Fever MEDICAL HISTORY : Hypertension. SURGICAL HISTORY : Colon polyp removal. Neck surgery. Ear tubes. ENCOUNTER: Initial ACUITY: 1 week PAIN SCORE: 7/10 LOCATION: chest FINDINGS: PA and lateral views of the chest demonstrate the lungs to be symmetrically aerated without evidence of mass, infiltrate or effusion. There is mild apparent streaky atelectasis at the lung bases. The ca rdiomediastinal contours are unremarkable. Osseous structures are intact. CONCLUSION: Mild apparent streaky atelectasis in the lung bases with no evidence of pneumonia. Corey Howard MD on September 28, 2017 at 9:31 Board Certified Radiologist. This report was verified electronically.
[2017-09-28] MEDS: APIXABAN 5 MG TABLET PO SCH (09:40)
[2017-09-28] MEDS: PANTOPRAZOLE SOD 40 MG DELAYED RELEASE TAB PO SCH ×2 (09:41→21:38)
[2017-09-28] MEDS: SODIUM CHLORIDE 0.9% FLUSH 10 ML FLUSH IV FLUSH SCH ×2 (09:41→21:00)
--- NOTE | 2017-09-28 09:55 | HHI.PR ---
Subjective Remarks Follow-up for DVT and alcoholism Patient stated that he feels that his right lower leg is tight. Continues to have pain. But he feels like there is some improvement. Denies any abdominal pain. Denies any nausea or vomiting. He has no other complaints. Discussed case with patient's nurse. Patient had a fever this morning. Patient did not know that he had a fever. He denied any fevers or chills. Objective Vitals Vital Signs Date Time Temp Pulse Resp B/P (MAP) Pulse Ox O2 Delivery O2 Flow Rate FiO2 09/28/17 08:00 101.2 102 18 137/91 (106) 94 09/28/17 04:43 98.7 97 20 137/93 (108) 96 09/28/17 04:00 96 09/28/17 00:00 99.2 98 18 129/90 (103) 98 09/28/17 00:00 102 09/27/17 20:01 93 09/27/17 20:00 99.3 89 16 145/95 (112) 97 09/27/17 16:00 99.1 91 18 124/84 (97) 95 09/27/17 14:25 88 20 97 09/27/17 13:00 89 15 139/89 (106) 96 Room Air 09/27/17 12:33 110 20 110/74 (86) 98 Room Air 09/27/17 10:52 98 17 112/71 (85) 96 Room Air I/O 09/27/17 09/27/17 09/27/17 09/28/17 09/28/17 09/28/17 07:00 15:00 23:00 07:00 15:00 23:00 Intake Total 0 ml 2600 ml Balance 0 ml 2600 ml Intake Oral 0 ml 600 ml IV Total 2000 ml # Voids 2 2 0 Result Diagram: 09/27/17 0845 09/27/17 0845 Objective Remarks GENERAL: in NAD CARDIOVASCULAR: Regular rate and rhythm without murmurs, gallops, or rubs. RESPIRATORY: Breath sounds equal bilaterally. No accessory muscle use. GASTROINTESTINAL: Abdomen soft, non-tender, nondistended. MUSCULOSKELETAL: Right lower extremity positive for edema. Positive Homans sign. Mild erythema with improvement. Medications and IVs Current Medications Chlordiazepoxide (Librium) 50 mg STAT ONCE PO Last administered on 09/27/17at 05:06; Start 09/27/17 at 05:00; Stop 09/27/17 at 05:01; Status DC Sodium Chloride 1,000 ml @ 1,000 mls/hr Q1H IV Last administered on 09/27/17at 08:54; Start 09/27/17 at 08:08; Stop 09/27/17 at 09:07; Status DC Sodium Chloride (NS Flush) 2 ml UNSCH PRN IV FLUSH FLUSH AFTER USING IV ACCESS ; Start 09/27/17 at 08:15; Stop 09/27/17 at 10:43; Status DC Ketorolac Tromethamine (Toradol Inj) 30 mg ONCE ONCE IVP Last administered on 09/27/17at 08:55; Start 09/27/17 at 08:15; Stop 09/27/17 at 08:16; Status DC Heparin Sodium/ Dextrose 250 ml @ 11.44 mls/ hr TITRATE PRN IV Coagulation Management; Start 09/27/17 at 08:15; Stop 09/27/17 at 09:35; Status DC Flumazenil (Romazicon Inj) 0.2 mg Q1M PRN IV PUSH SEE LABEL COMMENTS; Start at 08:30 Lorazepam (Ativan) 1 mg Q4H PRN PO CIWA 8 - 10; Start 09/27/17 at 08:30 Lorazepam (Ativan Inj) 1 mg Q4H PRN IV PUSH CIWA 8 - 10; Start 09/27/17 at 08: 30 Lorazepam (Ativan) 2 mg Q2H PRN PO CIWA 11-14; Start 09/27/17 at 08:30 Lorazepam (Ativan Inj) 2 mg Q2H PRN IV PUSH CIWA 11-14; Start 09/27/17 at 08:30 Lorazepam (Ativan Inj) 2 mg Q1H PRN IV PUSH CIWA 15-20; Start 09/27/17 at 08:30 Lorazepam (Ativan Inj) 2 mg Q15M PRN IV PUSH CIWA > 20; Start 09/27/17 at 08:30 Sodium Chloride 1,000 ml @ 150 mls/hr Q6H40M IV Last administered on at 06:41; Start 09/27/17 at 11:00 Sodium Chloride (NS Flush) 2 ml UNSCH PRN IV FLUSH FLUSH AFTER USING IV ACCESS ; Start 09/27/17 at 10:45 Sodium Chloride (NS Flush) 2 ml BID IV FLUSH Last administered on 09/28/17 09: 41; Start 09/27/17 at 21:00 Acetaminophen (Tylenol) 650 mg Q4H PRN PO TEMP > 100.4; Start 09/27/17 at 10:45 Ondansetron HCl (Zofran Inj) 4 mg Q6H PRN IVP NAUSEA OR VOMITING; Start at 10:45 Naloxone HCl (Narcan Inj) 0.4 mg UNSCH PRN IV PUSH SEE LABEL COMMENTS; Start at 10:45 Chlordiazepoxide (Librium) 10 mg TID PO Last administered on 09/28/17 09:41; Start 09/27/17 at 12:00 Apixaban (Eliquis) 10 mg BID PO Last administered on 09/28/17 09:40; Start at 12:00 Pantoprazole Sodium (Protonix) 40 mg Q12HR PO Last administered on 09/28/17 09 :41; Start 09/27/17 at 15:00 A/P Assessment and Plan This is a 51-year-old alcoholic with DVT DVT -Patient was on Eliquis. Discussed case with case management who stated that it will be easier to give patient Xarelto. Will switch to Xarelto since patient is self-pay. Fever -Most likely secondary to DVT. Will get CBC, BMP, blood cultures, UA, and chest x-ray. Tylenol as needed for fever. Since there is no source of infection at the moment we will monitor off antibiotics. 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 -Continue with CIWA protocol. Gastritis/duodenitis -Patient noncompliant. He is supposed to take Protonix at home. Continue with Protonix. DVT prophylaxis -Patient will be on Eliquis but will be switched to Xarelto. Susan Lino MD Sep 28, 2017 09:55
[2017-09-28 12:30] LABS: AUTOMATED NEUTROPHIL # 3.1 TH/MM3 (1.8-7.7); BASOPHIL % 0.3 % (0.0-2.0); EOSINOPHIL # 0.1 TH/MM3 (0-0.4); HEMATOCRIT 29.7 % (39.0-51.0); HEMOGLOBIN 9.6 GM/DL (13.0-17.0); LYMPH % 31.6 % (9.0-44.0); LYMPHOCYTE # 1.9 TH/MM3 (1.0-4.8); MEAN CELL VOLUME 77.1 FL (80.0-100.0); MEAN CORPUSCULAR HEMOGLOBIN 24.8 PG (27.0-34.0); MEAN CORPUSCULAR HGB CONC 32.2 % (32.0-36.0); MEAN PLATELET VOLUME 7.4 FL (7.0-11.0); MONO % 14.6 % (0.0-8.0); MONOCYTE # 0.9 TH/MM3 (0-0.9); NEUT % 52.5 % (16.0-70.0); PLATELET COUNT 311 TH/MM3 (150-450); RED BLOOD COUNT 3.85 MIL/MM3 (4.50-5.90); RED CELL DISTRIBUTION WIDTH 24.5 % (11.6-17.2)
[2017-09-28 12:56] LABS: BICARBONATE 25.5 MEQ/L (21.0-32.0); CALCIUM 8.6 MG/DL (8.5-10.1); CREATININE 0.7 MG/DL (0.60-1.30)
[2017-09-28] MEDS ORDERED: chlordiazePOXIDE 25 MG CAP PO PRN (18:00)
[2017-09-28] MEDS: RIVAROXABAN 15 MG TAB PO SCH (21:38)
[2017-09-29] VITALS (7 sets, daily range): BP systolic 127–151; BP diastolic 82–99; PULSE 79–116; RESP 16–20; TEMP 98.1–100.6; O2SAT 94–98
[2017-09-29] MEDS: ACETAMINOPHEN 325 MG TAB PO PRN ×2 (00:28→21:27)
[2017-09-29] MEDS: SODIUM CHLOR 0.9% 1000 ML INJ 1,000 ML IV SCH ×3 (04:45→18:35)
--- NOTE | 2017-09-29 08:53 | HHI.PR ---
Subjective Remarks in no acute distress. has some pain to the right leg. low grade fever earlier. Objective Vitals Vital Signs Date Time Temp Pulse Resp B/P (MAP) Pulse Ox O2 Delivery O2 Flow Rate FiO2 09/29/17 05:00 79 09/29/17 04:39 98.1 86 20 149/99 (116) 98 09/29/17 00:00 96 09/29/17 00:00 100.3 97 18 151/99 (116) 95 09/28/17 21:00 95 09/28/17 20:00 99.1 107 18 129/81 (97) 96 09/28/17 16:00 98.9 94 16 136/96 (109) 98 09/28/17 12:00 100.9 93 16 153/109 (124) 97 09/28/17 09:00 111 I/O 09/28/17 09/28/17 09/28/17 09/29/17 09/29/17 09/29/17 07:00 15:00 23:00 07:00 15:00 23:00 Intake Total 2600 ml 3400 ml 2058 ml Output Total 3100 ml 1600 ml Balance 2600 ml 300 ml 458 ml Intake Oral 600 ml 2400 ml 680 ml IV Total 2000 ml 1000 ml 1378 ml Output Urine Total 3100 ml 1600 ml # Voids 2 0 # Bowel Movements 0 Result Diagram: 09/28/17 1118 09/28/17 1130 Imaging Last Impressions Chest X-Ray 09/28/17 0000 Signed Impressions: Service Date/Time: Thursday, September 28, 2017 09:20 - CONCLUSION: Mild apparent streaky atelectasis in the lung bases with no evidence of pneumonia. Corey Howard MD Lower Extremity Ultrasound 09/27/17 0639 Signed Impressions: Service Date/Time: Wednesday, September 27, 2017 07:18 - CONCLUSION: Extensive occlusive and nonocclusive deep venous thrombus within the right superficial femoral, popliteal, peroneal and posterior tibial veins. Geremias Garibay MD Objective Remarks GENERAL: This is a well-nourished, well-developed patient, in no apparent distress. CARDIOVASCULAR: Regular rate and regular rhythm without murmurs, gallops, or rubs. RESPIRATORY: Clear to auscultation. Breath sounds equal bilaterally. No wheezes , rales, or rhonchi. GASTROINTESTINAL: Abdomen soft, non-tender, nondistended. Normal, active bowel sounds MUSCULOSKELETAL: swelling and some tenderness of the right leg. NEURO: Alert & Oriented x4 to person, place, time, situation. Moves all ext x4 Medications and IVs Inpatient Medications Acetaminophen (Tylenol) 650 mg Q4H PRN PO TEMP > 100.4 Last administered on at 00:28; Start 09/27/17 at 10:45 Apixaban (Eliquis) 10 mg BID PO Last administered on 09/28/17at 09:40; Start at 12:00; Stop 09/28/17 at 09:56; Status DC Chlordiazepoxide (Librium) 25 mg TID PRN PO SEVERE ANXIETY OR AGITATION; Start 09/28/17 at 18:00 Flumazenil (Romazicon Inj) 0.2 mg Q1M PRN IV PUSH SEE LABEL COMMENTS; Start at 08:30 Heparin Sodium/ Dextrose 250 ml @ 11.44 mls/ hr TITRATE PRN IV Coagulation Management; Start 09/27/17 at 08:15; Stop 09/27/17 at 09:35; Status DC Ketorolac Tromethamine (Toradol Inj) 30 mg ONCE ONCE IVP Last administered on 09/27/17at 08:55; Start 09/27/17 at 08:15; Stop 09/27/17 at 08:16; Status DC Lorazepam (Ativan Inj) 2 mg Q15M PRN IV PUSH CIWA > 20; Start 09/27/17 at 08:30 Lorazepam (Ativan) 2 mg Q2H PRN PO CIWA 11-14; Start 09/27/17 at 08:30 Naloxone HCl (Narcan Inj) 0.4 mg UNSCH PRN IV PUSH SEE LABEL COMMENTS; Start at 10:45 Ondansetron HCl (Zofran Inj) 4 mg Q6H PRN IVP NAUSEA OR VOMITING; Start at 10:45 Pantoprazole Sodium (Protonix) 40 mg Q12HR PO Last administered on 09/28/17at 21 :38; Start 09/27/17 at 15:00 Rivaroxaban (Xarelto) 15 mg BID PO Last administered on 09/28/17at 21:38; Start 09/28/17 at 21:00 Sodium Chloride (NS Flush) 2 ml BID IV FLUSH Last administered on 09/28/17at 09: 41; Start 09/27/17 at 21:00 A/P Assessment and Plan DVT -continue with Xarelto. Fever -Most likely secondary to DVT. -CXR with no evidence of pneumonia. blood cultures/UA pending. 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 -Continue with CIWA protocol. Gastritis/duodenitis -Patient noncompliant. He is supposed to take Protonix at home. Continue with Protonix. consult PT. Discharge Planning possible discharge tomorrow- pending the blood cultures and PT evaluation. Chuy Montano MD Sep 29, 2017 08:53
[2017-09-29] MEDS: PANTOPRAZOLE SOD 40 MG DELAYED RELEASE TAB PO SCH ×2 (10:18→21:27)
[2017-09-29] MEDS: SODIUM CHLORIDE 0.9% FLUSH 10 ML FLUSH IV FLUSH SCH ×2 (10:19→21:27)
[2017-09-29] MEDS: RIVAROXABAN 15 MG TAB PO SCH ×2 (10:19→21:27)
[2017-09-30 00:27] VITALS: BP 129/94; PULSE 86; RESP 20; TEMP 98.8; O2SAT 96
[2017-09-30] MEDS: SODIUM CHLOR 0.9% 1000 ML INJ 1,000 ML IV SCH ×4 (00:41→17:32)
[2017-09-30 04:31] VITALS: BP 132/90; PULSE 88; RESP 18; TEMP 99.2; O2SAT 98
[2017-09-30 08:00] VITALS: BP 147/98; PULSE 95; RESP 19; TEMP 99.7; O2SAT 95
[2017-09-30] MEDS: SODIUM CHLORIDE 0.9% FLUSH 10 ML FLUSH IV FLUSH SCH ×2 (09:00→19:28)
[2017-09-30] MEDS: RIVAROXABAN 15 MG TAB PO SCH ×2 (09:19→19:28)
[2017-09-30] MEDS: PANTOPRAZOLE SOD 40 MG DELAYED RELEASE TAB PO SCH ×2 (09:19→19:28)
--- NOTE | 2017-09-30 10:05 | HHI.PR ---
Subjective Remarks in no acute distress. still with moderate to severe pain to the right leg. no sob. Objective Vitals Vital Signs Date Time Temp Pulse Resp B/P (MAP) Pulse Ox O2 Delivery O2 Flow Rate FiO2 09/30/17 08:00 99.7 95 19 147/98 (114) 95 09/30/17 04:31 99.2 88 18 132/90 (104) 98 09/30/17 00:27 98.8 86 20 129/94 (106) 96 09/29/17 20:00 100.6 103 17 127/82 (97) 97 09/29/17 16:00 99.6 98 17 132/95 (107) 96 09/29/17 12:00 99.2 116 19 131/90 (104) 94 I/O 09/29/17 09/29/17 09/29/17 09/30/17 09/30/17 09/30/17 07:00 15:00 23:00 07:00 15:00 23:00 Intake Total 2058 ml 780 ml 780 ml Output Total 1600 ml 1175 ml 1000 ml Balance 458 ml -395 ml -220 ml Intake Oral 680 ml 780 ml 780 ml IV Total 1378 ml Output Urine Total 1600 ml 1175 ml 1000 ml # Bowel Movements 0 1 Result Diagram: 09/28/17 1118 09/28/17 1130 Imaging Last Impressions Chest X-Ray 09/28/17 0000 Signed Impressions: Service Date/Time: Thursday, September 28, 2017 09:20 - CONCLUSION: Mild apparent streaky atelectasis in the lung bases with no evidence of pneumonia. Corey Howard MD Lower Extremity Ultrasound 09/27/17 0639 Signed Impressions: Service Date/Time: Wednesday, September 27, 2017 07:18 - CONCLUSION: Extensive occlusive and nonocclusive deep venous thrombus within the right superficial femoral, popliteal, peroneal and posterior tibial veins. Geremias Garibay MD Objective Remarks GENERAL: This is a well-nourished, well-developed patient, in no apparent distress. CARDIOVASCULAR: Regular rate and regular rhythm without murmurs, gallops, or rubs. RESPIRATORY: Clear to auscultation. Breath sounds equal bilaterally. No wheezes , rales, or rhonchi. GASTROINTESTINAL: Abdomen soft, non-tender, nondistended. Normal, active bowel sounds MUSCULOSKELETAL: swelling and some tenderness of the right leg. NEURO: Alert & Oriented x4 to person, place, time, situation. Moves all ext x4 Procedures none Medications and IVs Inpatient Medications Acetaminophen (Tylenol) 650 mg Q4H PRN PO TEMP > 100.4 Last administered on at 21:27; Start 09/27/17 at 10:45 Apixaban (Eliquis) 10 mg BID PO Last administered on 09/28/17at 09:40; Start at 12:00; Stop 09/28/17 at 09:56; Status DC Chlordiazepoxide (Librium) 25 mg TID PRN PO SEVERE ANXIETY OR AGITATION; Start 09/28/17 at 18:00 Flumazenil (Romazicon Inj) 0.2 mg Q1M PRN IV PUSH SEE LABEL COMMENTS; Start at 08:30 Heparin Sodium/ Dextrose 250 ml @ 11.44 mls/ hr TITRATE PRN IV Coagulation Management; Start 09/27/17 at 08:15; Stop 09/27/17 at 09:35; Status DC Ketorolac Tromethamine (Toradol Inj) 30 mg ONCE ONCE IVP Last administered on 09/27/17at 08:55; Start 09/27/17 at 08:15; Stop 09/27/17 at 08:16; Status DC Lorazepam (Ativan Inj) 2 mg Q15M PRN IV PUSH CIWA > 20; Start 09/27/17 at 08:30 Lorazepam (Ativan) 2 mg Q2H PRN PO CIWA 11-14; Start 09/27/17 at 08:30 Naloxone HCl (Narcan Inj) 0.4 mg UNSCH PRN IV PUSH SEE LABEL COMMENTS; Start at 10:45 Ondansetron HCl (Zofran Inj) 4 mg Q6H PRN IVP NAUSEA OR VOMITING; Start at 10:45 Pantoprazole Sodium (Protonix) 40 mg Q12HR PO Last administered on 09/30/17at 09 :19; Start 09/27/17 at 15:00 Rivaroxaban (Xarelto) 15 mg BID PO Last administered on 09/30/17at 09:19; Start 09/28/17 at 21:00 Sodium Chloride (NS Flush) 2 ml BID IV FLUSH Last administered on 09/29/17at 21: 27; Start 09/27/17 at 21:00 A/P Assessment and Plan DVT -continue with Xarelto. Fever -Most likely secondary to DVT. -CXR with no evidence of pneumonia. blood cultures negative so far- UA pending. 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 -Continue with CIWA protocol. Gastritis/duodenitis -Patient noncompliant. He is supposed to take Protonix at home. Continue with Protonix. consulted PT. Discharge Planning possible discharge within the next 24-48 hrs if pain is better controlled. Chuy Montano MD Sep 30, 2017 10:05
[2017-09-30] MEDS ORDERED: ACETAMINOPHEN/HYDROcodone 325 MG/5 MG TAB PO PRN (10:15)
[2017-09-30 11:14] LABS: HEMATOCRIT 29.2 % (39.0-51.0); HEMOGLOBIN 9.3 GM/DL (13.0-17.0); MEAN CELL VOLUME 77.8 FL (80.0-100.0); MEAN CORPUSCULAR HEMOGLOBIN 24.9 PG (27.0-34.0); MEAN PLATELET VOLUME 7.7 FL (7.0-11.0); PLATELET COUNT 302 TH/MM3 (150-450); RED BLOOD COUNT 3.75 MIL/MM3 (4.50-5.90); RED CELL DISTRIBUTION WIDTH 24.3 % (11.6-17.2); WHITE BLOOD COUNT 6.1 TH/MM3 (4.0-11.0)
[2017-09-30] MEDS: ACETAMINOPHEN/HYDROcodone 325 MG/5 MG TAB PO PRN ×2 (11:45→19:05)
[2017-09-30 12:00] VITALS: BP 127/92; PULSE 105; RESP 19; TEMP 98.8; O2SAT 96
[2017-09-30 16:00] VITALS: BP 122/70; PULSE 92; RESP 18; TEMP 97.8; O2SAT 98
[2017-09-30 20:00] VITALS: BP 159/107; PULSE 98; RESP 16; TEMP 97.7; O2SAT 97
[2017-10-01] VITALS: BP 150/100; PULSE 92; RESP 16; TEMP 97.9; O2SAT 94
[2017-10-01 01:03] LABS: BILIRUBIN, URINE NEG (NEG); BLOOD, URINE NEG (NEG); GLUCOSE,URINE NEG (NEG); KETONE, URINE NEG (NEG); NITRITE,URINE NEG (NEG); URINE COLOR LIGHT-YELLOW (YELLW/STRAW); URINE LEUKOCYTE ESTERASE NEG (NEG)
[2017-10-01] MEDS: ACETAMINOPHEN/HYDROcodone 325 MG/5 MG TAB PO PRN ×4 (01:19→18:02)
[2017-10-01 04:00] VITALS: BP 149/100; PULSE 89; RESP 16; TEMP 97.7; O2SAT 95
[2017-10-01] MEDS: SODIUM CHLOR 0.9% 1000 ML INJ 1,000 ML IV SCH ×3 (04:13→20:13)
[2017-10-01 08:00] VITALS: BP 114/70; PULSE 121; RESP 18; TEMP 99.4; O2SAT 93
--- NOTE | 2017-10-01 08:22 | HHI.PR ---
Subjective Remarks in no acute distress. no sob. has some pain to the right leg. tachycardic with HR up to 120's. Objective Vitals Vital Signs Date Time Temp Pulse Resp B/P (MAP) Pulse Ox O2 Delivery O2 Flow Rate FiO2 10/01/17 08:00 99.4 121 18 114/70 (85) 93 10/01/17 04:00 97.7 89 16 149/100 (116) 95 10/01/17 00:00 97.9 92 16 150/100 (117) 94 09/30/17 20:00 97.7 98 16 159/107 (124) 97 09/30/17 16:00 97.8 92 18 122/70 (87) 98 09/30/17 12:00 98.8 105 19 127/92 (104) 96 I/O 09/30/17 09/30/17 09/30/17 10/01/17 10/01/17 10/01/17 06:59 14:59 22:59 06:59 14:59 22:59 Intake Total 780 ml 1000 ml 1060 ml 1212 ml Output Total 1000 ml 600 ml 650 ml Balance -220 ml 1000 ml 460 ml 562 ml Intake Oral 780 ml 860 ml 240 ml IV Total 1000 ml 200 ml 972 ml Output Urine Total 1000 ml 600 ml 650 ml # Voids 3 2 # Bowel Movements 1 1 1 Result Diagram: 09/30/17 1018 09/28/17 1130 Imaging Last Impressions Chest X-Ray 09/28/17 0000 Signed Impressions: Service Date/Time: Thursday, September 28, 2017 09:20 - CONCLUSION: Mild apparent streaky atelectasis in the lung bases with no evidence of pneumonia. Corey Howard MD Lower Extremity Ultrasound 09/27/17 0639 Signed Impressions: Service Date/Time: Wednesday, September 27, 2017 07:18 - CONCLUSION: Extensive occlusive and nonocclusive deep venous thrombus within the right superficial femoral, popliteal, peroneal and posterior tibial veins. Geremias Garibay MD Objective Remarks GENERAL: This is a well-nourished, well-developed patient, in no apparent distress. CARDIOVASCULAR: Regular rate and regular rhythm without murmurs, gallops, or rubs. RESPIRATORY: Clear to auscultation. Breath sounds equal bilaterally. No wheezes , rales, or rhonchi. GASTROINTESTINAL: Abdomen soft, non-tender, nondistended. Normal, active bowel sounds MUSCULOSKELETAL: swelling and some tenderness of the right leg. NEURO: Alert & Oriented x4 to person, place, time, situation. Moves all ext x4 Procedures none Medications and IVs Inpatient Medications Acetaminophen (Tylenol) 650 mg Q4H PRN PO FEVER/ PAIN 1-2 Last administered on 09/29/17at 21:27; Start 09/27/17 at 10:45 Acetaminophen/ Hydrocodone Bitart ([place] 5-325 Mg) 2 tab Q6H PRN PO PAIN 8-10 Last administered on 10/01/17at 01:19; Start 09/30/17 at 10:15 Apixaban (Eliquis) 10 mg BID PO Last administered on 09/28/17at 09:40; Start at 12:00; Stop 09/28/17 at 09:56; Status DC Chlordiazepoxide (Librium) 25 mg TID PRN PO SEVERE ANXIETY OR AGITATION; Start 09/28/17 at 18:00 Flumazenil (Romazicon Inj) 0.2 mg Q1M PRN IV PUSH SEE LABEL COMMENTS; Start at 08:30 Heparin Sodium/ Dextrose 250 ml @ 11.44 mls/ hr TITRATE PRN IV Coagulation Management; Start 09/27/17 at 08:15; Stop 09/27/17 at 09:35; Status DC Ketorolac Tromethamine (Toradol Inj) 30 mg ONCE ONCE IVP Last administered on 09/27/17at 08:55; Start 09/27/17 at 08:15; Stop 09/27/17 at 08:16; Status DC Lorazepam (Ativan Inj) 2 mg Q15M PRN IV PUSH CIWA > 20; Start 09/27/17 at 08:30 Lorazepam (Ativan) 2 mg Q2H PRN PO CIWA 11-14; Start 09/27/17 at 08:30 Naloxone HCl (Narcan Inj) 0.4 mg UNSCH PRN IV PUSH SEE LABEL COMMENTS; Start at 10:45 Ondansetron HCl (Zofran Inj) 4 mg Q6H PRN IVP NAUSEA OR VOMITING; Start at 10:45 Pantoprazole Sodium (Protonix) 40 mg Q12HR PO Last administered on 09/30/17at 19 :28; Start 09/27/17 at 15:00 Rivaroxaban (Xarelto) 15 mg BID PO Last administered on 09/30/17at 19:28; Start 09/28/17 at 21:00 Sodium Chloride (NS Flush) 2 ml BID IV FLUSH Last administered on 09/29/17at 21: 27; Start 09/27/17 at 21:00 A/P Assessment and Plan DVT -continue with Xarelto. Fever- has resolved. -Most likely secondary to DVT. -CXR with no evidence of pneumonia. blood cultures negative so far- UA negative. tachycardia- will r/o PE with CT-angiogram continue to monitor. 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 -Continue with CIWA protocol. Gastritis/duodenitis -Patient noncompliant. He is supposed to take Protonix at home. Continue with Protonix. consulted PT. Discharge Planning possible discharge within the next 24-48 hrs if stable-pending CTA lung. Chuy Montano MD Oct 01, 2017 08:22
[2017-10-01] MEDS: RIVAROXABAN 15 MG TAB PO SCH ×2 (08:42→20:14)
[2017-10-01] MEDS: PANTOPRAZOLE SOD 40 MG DELAYED RELEASE TAB PO SCH ×2 (08:42→20:15)
[2017-10-01] MEDS: SODIUM CHLORIDE 0.9% FLUSH 10 ML FLUSH IV FLUSH SCH ×2 (09:00→20:13)
[2017-10-01] MEDS ORDERED: IOHEXOL 350 MG/ML 10 ML VIAL (for RAD DIAG) IVCONTRAST ONE (09:29)
--- NOTE | 2017-10-01 10:02 | RADRPT ---
EXAM DATE/TIME: 10/01/2017 09:19 [place] COMPARISON: No previous studies available for comparison. INDICATIONS : Tachycardia. IV CONTRAST: 70 cc Omnipaque 350 (iohexol) IV RADIATION DOSE: 8.51 CTDIvol (mGy) MEDICAL HISTORY : Hypertension. SURGICAL HISTORY : Neck and back surgery. ENCOUNTER: Initial ACUITY: 1 day PAIN SCALE: 0/10 LOCATION: chest TECHNIQUE: Volumetric scanning of the chest was performed using a pulmonary embolism protocol MIP images were re constructed. Using automated exposure control and adjustment of the mA and/or kV according to patien t size, radiation dose was kept as low as reasonably achievable to obtain optimal diagnostic quality images. DICOM format image data is available electronically for review and comparison. Follow-up recommendations for detected pulmonary nodules are based at a minimum on nodule size and pa tient risk factors according to Fleischner Society Guidelines. FINDINGS: PULMONARY ARTERIES: No filling defects are seen in the pulmonary arteries through the segmental level. LUNGS: There is a scattered areas of platelike atelectasis in both lower lungs. The upper lung holder are gr ossly clear. PLEURAE: There is no pleural thickening or pleural effusion. MEDIASTINUM: There is good visualization of the great vessels of the middle mediastinum. No evidence of mediastin al or hilar adenopathy/mass. A few nonspecific mediastinal lymph nodes are demonstrated. MUSCULOSKELETAL: Within normal limits for patient age. MISCELLANEOUS: There is diffuse fatty infiltration of the liver. CONCLUSION: 1. No evidence of PE. 2. Scattered areas of bibasilar atelectasis. 3. Diffuse fatty infiltration of the liver. Bryson Ramirez MD on October 01, 2017 at 9:58 Board Certified Radiologist. This report was verified electronically.
[2017-10-01 12:00] VITALS: BP 120/78; PULSE 98; RESP 18; TEMP 99.4; O2SAT 92
[2017-10-01 16:00] VITALS: BP 125/86; PULSE 90; RESP 18; TEMP 98.8; O2SAT 93
[2017-10-01 20:00] VITALS: BP 130/91; PULSE 95; RESP 18; TEMP 99.2; O2SAT 94
[2017-10-02] VITALS (8 sets, daily range): BP systolic 121–153; BP diastolic 84–103; PULSE 85–107; RESP 16–18; TEMP 98.8–101; O2SAT 90–93
[2017-10-02] MEDS: ACETAMINOPHEN/HYDROcodone 325 MG/5 MG TAB PO PRN ×4 (00:03→18:03)
[2017-10-02] MEDS: SODIUM CHLOR 0.9% 1000 ML INJ 1,000 ML IV SCH ×3 (03:27→18:03)
--- NOTE | 2017-10-02 08:55 | HHI.PR ---
Subjective Remarks in no acute distress. however ' feels shaky' today. still with some pain to the right leg. Objective Vitals Vital Signs Date Time Temp Pulse Resp B/P (MAP) Pulse Ox O2 Delivery O2 Flow Rate FiO2 10/02/17 08:00 99.1 92 18 138/84 (102) 90 10/02/17 04:00 99.8 95 18 153/103 (120) 93 10/02/17 01:10 101 10/02/17 00:00 98.8 95 18 137/93 (108) 92 10/01/17 20:00 99.2 95 18 130/91 (104) 94 10/01/17 16:00 98.8 90 18 125/86 (99) 93 10/01/17 12:00 99.4 98 18 120/78 (92) 92 I/O 10/01/17 10/01/17 10/01/17 10/02/17 10/02/17 10/02/17 07:00 15:00 23:00 07:00 15:00 23:00 Intake Total 1212 ml 1100 ml 1712 ml Output Total 650 ml 2200 ml 650 ml Balance 562 ml -1100 ml 1062 ml Intake Oral 240 ml 1100 ml 480 ml IV Total 972 ml 1232 ml Output Urine Total 650 ml 2200 ml 650 ml # Voids 2 # Bowel Movements 1 1 Result Diagram: 09/30/17 1018 09/28/17 [address] Angiography 10/01/17 0000 Signed Impressions: Service Date/Time: September 09:19 - CONCLUSION: 1. No evidence of PE. 2. Scattered areas of bibasilar atelectasis. 3. Diffuse fatty infiltration of the liver. Bryson Ramirez MD Chest X-Ray 09/28/17 0000 Signed Impressions: Service Date/Time: Thursday, September 28, 2017 09:20 - CONCLUSION: Mild apparent streaky atelectasis in the lung bases with no evidence of pneumonia. Corey Howard MD Lower Extremity Ultrasound 09/27/17 0639 Signed Impressions: Service Date/Time: Wednesday, September 27, 2017 07:18 - CONCLUSION: Extensive occlusive and nonocclusive deep venous thrombus within the right superficial femoral, popliteal, peroneal and posterior tibial veins. Geremias Garibay MD Objective Remarks GENERAL: looks anxious CARDIOVASCULAR: Regular rate and regular rhythm without murmurs, gallops, or rubs. RESPIRATORY: Clear to auscultation. Breath sounds equal bilaterally. No wheezes , rales, or rhonchi. GASTROINTESTINAL: Abdomen soft, non-tender, nondistended. Normal, active bowel sounds MUSCULOSKELETAL: swelling and some tenderness of the right leg. NEURO: Alert & Oriented x4 to person, place, time, situation. Moves all ext x4 - some tremors of the hands noted. Procedures none Medications and IVs Inpatient Medications Acetaminophen (Tylenol) 650 mg Q4H PRN PO FEVER/ PAIN 1-2 Last administered on 09/29/17at 21:27; Start 09/27/17 at 10:45 Acetaminophen/ Hydrocodone Bitart ([place] 5-325 Mg) 2 tab Q6H PRN PO PAIN 8-10 Last administered on 10/02/17at 05:28; Start 09/30/17 at 10:15 Apixaban (Eliquis) 10 mg BID PO Last administered on 09/28/17at 09:40; Start at 12:00; Stop 09/28/17 at 09:56; Status DC Chlordiazepoxide (Librium) 25 mg TID PRN PO SEVERE ANXIETY OR AGITATION; Start 09/28/17 at 18:00 Flumazenil (Romazicon Inj) 0.2 mg Q1M PRN IV PUSH SEE LABEL COMMENTS; Start at 08:30 Heparin Sodium/ Dextrose 250 ml @ 11.44 mls/ hr TITRATE PRN IV Coagulation Management; Start 09/27/17 at 08:15; Stop 09/27/17 at 09:35; Status DC Ketorolac Tromethamine (Toradol Inj) 30 mg ONCE ONCE IVP Last administered on 09/27/17at 08:55; Start 09/27/17 at 08:15; Stop 09/27/17 at 08:16; Status DC Lorazepam (Ativan Inj) 2 mg Q15M PRN IV PUSH CIWA > 20; Start 09/27/17 at 08:30 Lorazepam (Ativan) 2 mg Q2H PRN PO CIWA 11-14; Start 09/27/17 at 08:30 Naloxone HCl (Narcan Inj) 0.4 mg UNSCH PRN IV PUSH SEE LABEL COMMENTS; Start at 10:45 Ondansetron HCl (Zofran Inj) 4 mg Q6H PRN IVP NAUSEA OR VOMITING; Start at 10:45 Pantoprazole Sodium (Protonix) 40 mg Q12HR PO Last administered on 10/01/17at 20 :15; Start 09/27/17 at 15:00 Rivaroxaban (Xarelto) 15 mg BID PO Last administered on 10/01/17at 20:14; Start 09/28/17 at 21:00 Sodium Chloride (NS Flush) 2 ml BID IV FLUSH Last administered on 10/01/17at 09: 00; Start 09/27/17 at 21:00 A/P Assessment and Plan DVT -continue with Xarelto. Fever- -Most likely secondary to DVT. -CXR with no evidence of pneumonia. blood cultures negative so far- UA negative. -will monitor. tachycardia-likely due to alcohol withdrawal and pain CTA chest negative for PE. start on librium and metoprolol- continue to monitor. 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 -Continue with CIWA protocol. Gastritis/duodenitis -Patient noncompliant. He is supposed to take Protonix at home. Continue with Protonix. consulted PT. Discharge Planning possible discharge within the next 24-48 hrs if stable- Chuy Montano MD Oct 02, 2017 08:55
[2017-10-02] MEDS: SODIUM CHLORIDE 0.9% FLUSH 10 ML FLUSH IV FLUSH SCH ×2 (09:00→20:30)
[2017-10-02] MEDS: PANTOPRAZOLE SOD 40 MG DELAYED RELEASE TAB PO SCH ×2 (09:25→20:30)
[2017-10-02] MEDS: RIVAROXABAN 15 MG TAB PO SCH ×2 (09:25→20:30)
[2017-10-02] MEDS: METOPROLOL TARTRATE 25 MG TAB PO SCH ×2 (09:35→20:30)
[2017-10-02] MEDS: ACETAMINOPHEN 325 MG TAB PO PRN (12:11)
[2017-10-03] VITALS: BP 150/105; PULSE 91; RESP 18; TEMP 99.7; O2SAT 95
[2017-10-03] MEDS: SODIUM CHLOR 0.9% 1000 ML INJ 1,000 ML IV SCH ×4 (00:03→20:20)
[2017-10-03] MEDS: ACETAMINOPHEN/HYDROcodone 325 MG/5 MG TAB PO PRN ×5 (00:04→23:19)
[2017-10-03 04:00] VITALS: BP 148/92; PULSE 97; RESP 18; TEMP 100.8; O2SAT 91
[2017-10-03 08:00] VITALS: BP 150/100; PULSE 94; RESP 17; TEMP 98.5; O2SAT 92
[2017-10-03 08:18] LABS: HEMATOCRIT 27.8 % (39.0-51.0); HEMOGLOBIN 8.8 GM/DL (13.0-17.0); MEAN CELL VOLUME 77.1 FL (80.0-100.0); MEAN CORPUSCULAR HEMOGLOBIN 24.4 PG (27.0-34.0); MEAN CORPUSCULAR HGB CONC 31.6 % (32.0-36.0); MEAN PLATELET VOLUME 7.7 FL (7.0-11.0); PLATELET COUNT 363 TH/MM3 (150-450); RED BLOOD COUNT 3.61 MIL/MM3 (4.50-5.90); RED CELL DISTRIBUTION WIDTH 23.4 % (11.6-17.2)
[2017-10-03] MEDS: SODIUM CHLORIDE 0.9% FLUSH 10 ML FLUSH IV FLUSH SCH ×2 (08:39→21:00)
[2017-10-03] MEDS: RIVAROXABAN 15 MG TAB PO SCH ×2 (08:40→20:44)
[2017-10-03] MEDS: METOPROLOL TARTRATE 25 MG TAB PO SCH ×2 (08:40→20:44)
[2017-10-03] MEDS: PANTOPRAZOLE SOD 40 MG DELAYED RELEASE TAB PO SCH ×2 (08:41→20:44)
--- NOTE | 2017-10-03 08:59 | HHI.PR ---
Subjective Remarks in no acute distress. with on and off fever; Tmax 101. anxiety is better today. d/w the RN and no other acute issues over night. Objective Vitals Vital Signs Date Time Temp Pulse Resp B/P (MAP) Pulse Ox O2 Delivery O2 Flow Rate FiO2 10/03/17 04:00 100.8 97 18 148/92 (110) 91 10/03/17 00:00 99.7 91 18 150/105 (120) 95 10/02/17 20:11 85 10/02/17 20:00 99.1 99 16 132/94 (107) 92 10/02/17 16:00 98.8 87 18 121/88 (99) 92 10/02/17 12:00 101.0 107 18 132/91 (105) 91 I/O 10/02/17 10/02/17 10/02/17 10/03/17 10/03/17 10/03/17 07:00 15:00 23:00 07:00 15:00 23:00 Intake Total 1712 ml 960 ml 1380 ml Output Total 650 ml 1400 ml 1000 ml Balance 1062 ml -440 ml 380 ml Intake Oral 480 ml 960 ml 480 ml IV Total 1232 ml 900 ml Output Urine Total 650 ml 1400 ml 1000 ml # Bowel Movements 1 Result Diagram: 10/03/17 [address] Angiography 10/01/17 0000 Signed Impressions: Service Date/Time: September 09:19 - CONCLUSION: 1. No evidence of PE. 2. Scattered areas of bibasilar atelectasis. 3. Diffuse fatty infiltration of the liver. Bryson Ramirez MD Chest X-Ray 09/28/17 0000 Signed Impressions: Service Date/Time: Thursday, September 28, 2017 09:20 - CONCLUSION: Mild apparent streaky atelectasis in the lung bases with no evidence of pneumonia. Corey Howard MD Lower Extremity Ultrasound 09/27/17 0639 Signed Impressions: Service Date/Time: Wednesday, September 27, 2017 07:18 - CONCLUSION: Extensive occlusive and nonocclusive deep venous thrombus within the right superficial femoral, popliteal, peroneal and posterior tibial veins. Geremias Garibay MD Objective Remarks GENERAL: looks anxious- but better than yesterday. CARDIOVASCULAR: Regular rate and regular rhythm without murmurs, gallops, or rubs. RESPIRATORY: Clear to auscultation. Breath sounds equal bilaterally. No wheezes , rales, or rhonchi. GASTROINTESTINAL: Abdomen soft, non-tender, nondistended. Normal, active bowel sounds MUSCULOSKELETAL: swelling and some tenderness of the right leg. NEURO: Alert & Oriented x4 to person, place, time, situation. Moves all ext x4 - some tremors of the hands noted. Procedures none Medications and IVs Inpatient Medications Acetaminophen (Tylenol) 650 mg Q4H PRN PO FEVER/ PAIN 1-2 Last administered on 10/02/17at 12:11; Start 09/27/17 at 10:45 Acetaminophen/ Hydrocodone Bitart ([place] 5-325 Mg) 2 tab Q6H PRN PO PAIN 8-10 Last administered on 10/03/17at 05:58; Start 09/30/17 at 10:15 Apixaban (Eliquis) 10 mg BID PO Last administered on 09/28/17at 09:40; Start at 12:00; Stop 09/28/17 at 09:56; Status DC Chlordiazepoxide (Librium) 10 mg TID PO Last administered on 10/03/17at 08:39; Start 10/02/17 at 10:00 Flumazenil (Romazicon Inj) 0.2 mg Q1M PRN IV PUSH SEE LABEL COMMENTS; Start at 08:30 Heparin Sodium/ Dextrose 250 ml @ 11.44 mls/ hr TITRATE PRN IV Coagulation Management; Start 09/27/17 at 08:15; Stop 09/27/17 at 09:35; Status DC Ketorolac Tromethamine (Toradol Inj) 30 mg ONCE ONCE IVP Last administered on 09/27/17at 08:55; Start 09/27/17 at 08:15; Stop 09/27/17 at 08:16; Status DC Lorazepam (Ativan Inj) 2 mg Q15M PRN IV PUSH CIWA > 20; Start 09/27/17 at 08:30 Lorazepam (Ativan) 2 mg Q2H PRN PO CIWA 11-14; Start 09/27/17 at 08:30 Metoprolol Tartrate (Lopressor) 25 mg Q12HR PO Last administered on 10/03/17 08:40; Start 10/02/17 at 10:00 Naloxone HCl (Narcan Inj) 0.4 mg UNSCH PRN IV PUSH SEE LABEL COMMENTS; Start at 10:45 Ondansetron HCl (Zofran Inj) 4 mg Q6H PRN IVP NAUSEA OR VOMITING; Start at 10:45 Pantoprazole Sodium (Protonix) 40 mg Q12HR PO Last administered on 10/03/17 08 :41; Start 09/27/17 at 15:00 Rivaroxaban (Xarelto) 15 mg BID PO Last administered on 10/03/17 08:40; Start 09/28/17 at 21:00 Sodium Chloride (NS Flush) 2 ml BID IV FLUSH Last administered on 10/02/17 20: 30; Start 09/27/17 at 21:00 A/P Assessment and Plan DVT -continue with Xarelto. Fever- -Most likely secondary to DVT. -CXR with no evidence of pneumonia. blood cultures negative so far- UA negative. -repeat blood cultures. -will monitor. tachycardia-likely due to alcohol withdrawal and pain CTA chest negative for PE. started on librium and metoprolol- continue to monitor. 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 -Continue with CIWA protocol. Gastritis/duodenitis -Patient noncompliant. He is supposed to take Protonix at home. Continue with Protonix. anemia- hypochromic/microcytic- check the iron panel and stool for blood- repeat CBC tomorrow. consulted PT. Discharge Planning possible discharge early this week if stable/ negative blood cultures. Chuy Montano MD Oct 03, 2017 08:59
[2017-10-03 10:47] LABS: IRON (FE) 15 MCG/DL (65-175)
[2017-10-03 10:56] LABS: % SATURATION IRON PROFILE 5.5 % (20-50); FERRITIN 36 NG/ML (26-388); TOTAL IRON BINDING CAPACITY 273 MCG/DL (250-450)
[2017-10-03 12:00] VITALS: BP 138/93; PULSE 95; RESP 16; TEMP 99.3; O2SAT 93
[2017-10-03 16:00] VITALS: BP 139/74; PULSE 87; RESP 18; TEMP 98.5; O2SAT 96
[2017-10-03 20:00] VITALS: BP 114/86; PULSE 90; RESP 20; TEMP 98.5; O2SAT 94
[2017-10-04] VITALS (7 sets, daily range): BP systolic 121–176; BP diastolic 87–112; PULSE 84–105; RESP 16–20; TEMP 98.4–100.4; O2SAT 93–96
[2017-10-04] MEDS: SODIUM CHLOR 0.9% 1000 ML INJ 1,000 ML IV SCH ×3 (03:00→21:08)
[2017-10-04 05:06] LABS: AUTOMATED NEUTROPHIL # 2.6 TH/MM3 (1.8-7.7); BASOPHIL % 0.4 % (0.0-2.0); EOSINOPHIL # 0.2 TH/MM3 (0-0.4); EOSINOPHIL % 3.2 % (0.0-4.0); HEMATOCRIT 27.5 % (39.0-51.0); HEMOGLOBIN 8.8 GM/DL (13.0-17.0); LYMPH % 35.5 % (9.0-44.0); LYMPHOCYTE # 2.1 TH/MM3 (1.0-4.8); MEAN CELL VOLUME 77.2 FL (80.0-100.0); MEAN CORPUSCULAR HEMOGLOBIN 24.6 PG (27.0-34.0); MEAN CORPUSCULAR HGB CONC 31.9 % (32.0-36.0); MEAN PLATELET VOLUME 7.8 FL (7.0-11.0); MONO % 17.1 % (0.0-8.0); NEUT % 43.8 % (16.0-70.0); PLATELET COUNT 391 TH/MM3 (150-450); RED BLOOD COUNT 3.56 MIL/MM3 (4.50-5.90); RED CELL DISTRIBUTION WIDTH 22.5 % (11.6-17.2); WHITE BLOOD COUNT 5.9 TH/MM3 (4.0-11.0)
[2017-10-04] MEDS: ACETAMINOPHEN/HYDROcodone 325 MG/5 MG TAB PO PRN ×3 (07:52→20:16)
[2017-10-04] MEDS: PANTOPRAZOLE SOD 40 MG DELAYED RELEASE TAB PO SCH ×2 (07:52→20:15)
[2017-10-04] MEDS: METOPROLOL TARTRATE 25 MG TAB PO SCH ×2 (07:53→20:15)
[2017-10-04] MEDS: RIVAROXABAN 15 MG TAB PO SCH ×2 (07:53→20:16)
[2017-10-04] MEDS: SODIUM CHLORIDE 0.9% FLUSH 10 ML FLUSH IV FLUSH SCH ×2 (07:54→20:16)
--- NOTE | 2017-10-04 10:48 | HHI.PR ---
Subjective Remarks in no acute distress. low grade fever earlier today. pain seems to be improving. no other new complaints. Objective Vitals Vital Signs Date Time Temp Pulse Resp B/P (MAP) Pulse Ox O2 Delivery O2 Flow Rate FiO2 10/04/17 08:00 100.4 105 17 149/97 (114) 93 10/04/17 04:00 99.2 84 18 153/106 (122) 95 10/04/17 03:08 20 10/04/17 00:00 98.8 89 20 176/112 (133) 96 10/03/17 20:00 98.5 90 20 114/86 (95) 94 10/03/17 16:00 98.5 87 18 139/74 (95) 96 10/03/17 12:00 99.3 95 16 138/93 (108) 93 I/O 10/03/17 10/03/17 10/03/17 10/04/17 10/04/17 10/04/17 07:00 15:00 23:00 07:00 15:00 23:00 Intake Total 1380 ml 2100 ml 480 ml Output Total 1000 ml 2150 ml 750 ml Balance 380 ml -50 ml -270 ml Intake Oral 480 ml 2100 ml 480 ml IV Total 900 ml Output Urine Total 1000 ml 2150 ml 750 ml # Bowel Movements 1 0 Result Diagram: 10/04/17 [address] Angiography 10/01/17 0000 Signed Impressions: Service Date/Time: September 09:19 - CONCLUSION: 1. No evidence of PE. 2. Scattered areas of bibasilar atelectasis. 3. Diffuse fatty infiltration of the liver. Bryson Ramirez MD Chest X-Ray 09/28/17 0000 Signed Impressions: Service Date/Time: Thursday, September 28, 2017 09:20 - CONCLUSION: Mild apparent streaky atelectasis in the lung bases with no evidence of pneumonia. Corey Howard MD Lower Extremity Ultrasound 09/27/17 0639 Signed Impressions: Service Date/Time: Wednesday, September 27, 2017 07:18 - CONCLUSION: Extensive occlusive and nonocclusive deep venous thrombus within the right superficial femoral, popliteal, peroneal and posterior tibial veins. Geremias Garibay MD Objective Remarks GENERAL: looks anxious- but better than yesterday. CARDIOVASCULAR: Regular rate and regular rhythm without murmurs, gallops, or rubs. RESPIRATORY: Clear to auscultation. Breath sounds equal bilaterally. No wheezes , rales, or rhonchi. GASTROINTESTINAL: Abdomen soft, non-tender, nondistended. Normal, active bowel sounds MUSCULOSKELETAL: swelling and some tenderness of the right leg. NEURO: Alert & Oriented x4 to person, place, time, situation. Moves all ext x4 - some tremors of the hands noted. Procedures none Medications and IVs Inpatient Medications Acetaminophen (Tylenol) 650 mg Q4H PRN PO FEVER/ PAIN 1-2 Last administered on 10/02/17at 12:11; Start 09/27/17 at 10:45 Acetaminophen/ Hydrocodone Bitart ([place] 5-325 Mg) 2 tab Q6H PRN PO PAIN 8-10 Last administered on 10/04/17 07:52; Start 09/30/17 at 10:15 Apixaban (Eliquis) 10 mg BID PO Last administered on 09/28/17at 09:40; Start at 12:00; Stop 09/28/17 at 09:56; Status DC Chlordiazepoxide (Librium) 10 mg TID PO Last administered on 10/04/17 07:52; Start 10/02/17 at 10:00 Flumazenil (Romazicon Inj) 0.2 mg Q1M PRN IV PUSH SEE LABEL COMMENTS; Start at 08:30 Heparin Sodium/ Dextrose 250 ml @ 11.44 mls/ hr TITRATE PRN IV Coagulation Management; Start 09/27/17 at 08:15; Stop 09/27/17 at 09:35; Status DC Ketorolac Tromethamine (Toradol Inj) 30 mg ONCE ONCE IVP Last administered on 09/27/17at 08:55; Start 09/27/17 at 08:15; Stop 09/27/17 at 08:16; Status DC Lorazepam (Ativan Inj) 2 mg Q15M PRN IV PUSH CIWA > 20; Start 09/27/17 at 08:30 Lorazepam (Ativan) 2 mg Q2H PRN PO CIWA 11-14 Last administered on 10/03/17at 23 :18; Start 09/27/17 at 08:30 Metoprolol Tartrate (Lopressor) 25 mg Q12HR PO Last administered on 10/04/17at 07 :53; Start 10/02/17 at 10:00 Naloxone HCl (Narcan Inj) 0.4 mg UNSCH PRN IV PUSH SEE LABEL COMMENTS; Start at 10:45 Ondansetron HCl (Zofran Inj) 4 mg Q6H PRN IVP NAUSEA OR VOMITING; Start at 10:45 Pantoprazole Sodium (Protonix) 40 mg Q12HR PO Last administered on 10/04/17at 07: 52; Start 09/27/17 at 15:00 Rivaroxaban (Xarelto) 15 mg BID PO Last administered on 10/04/17at 07:53; Start 09/28/17 at 21:00 Sodium Chloride (NS Flush) 2 ml BID IV FLUSH Last administered on 10/02/17at 20: 30; Start 09/27/17 at 21:00 A/P Assessment and Plan DVT -continue with Xarelto. Fever- -Most likely secondary to DVT. -CXR with no evidence of pneumonia. blood cultures negative so far- UA negative. -repeat blood cultures pending. -check VAMSI. -will monitor. tachycardia-likely due to alcohol withdrawal and pain-overall improving. CTA chest negative for PE. started on librium and metoprolol- continue to monitor. 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 -Continue with CIWA protocol. Gastritis/duodenitis -Patient noncompliant. He is supposed to take Protonix at home. Continue with Protonix. anemia- hypochromic/microcytic- stool for blood pending.H/H fairly stable. consulted PT. Discharge Planning possible discharge early this week if stable/ negative blood cultures. Chuy Montano MD Oct 04, 2017 10:48
[2017-10-05] MEDS: ACETAMINOPHEN/HYDROcodone 325 MG/5 MG TAB PO PRN ×4 (02:17→15:56)
[2017-10-05 04:00] VITALS: BP 141/77; PULSE 81; PULSE 83; RESP 20; TEMP 98.8; O2SAT 95
[2017-10-05 08:00] VITALS: BP 148/96; PULSE 84; RESP 20; TEMP 98.8; O2SAT 95
[2017-10-05] MEDS: PANTOPRAZOLE SOD 40 MG DELAYED RELEASE TAB PO SCH (08:44)
[2017-10-05] MEDS: METOPROLOL TARTRATE 25 MG TAB PO SCH (08:44)
[2017-10-05] MEDS: RIVAROXABAN 15 MG TAB PO SCH (08:45)
[2017-10-05] MEDS ORDERED: FERROUS SULFATE 325 MG (65 MG ELEMENTAL IRON) TAB PO SCH (09:00)
[2017-10-05] MEDS: SODIUM CHLORIDE 0.9% FLUSH 10 ML FLUSH IV FLUSH SCH (09:00)
[2017-10-05] MEDS: SODIUM CHLOR 0.9% 1000 ML INJ 1,000 ML IV SCH (09:38)
[2017-10-05 12:00] VITALS: BP 112/79; PULSE 84; RESP 17; TEMP 98.7; O2SAT 95
--- NOTE | 2017-10-05 12:19 | HHI.PR ---
Subjective Remarks in no acute distress. no fever. pain seems to be controlled. no new complaints. Objective Vitals Vital Signs Date Time Temp Pulse Resp B/P (MAP) Pulse Ox O2 Delivery O2 Flow Rate FiO2 10/05/17 12:00 98.7 84 17 112/79 (90) 95 10/05/17 08:00 98.8 84 20 148/96 (113) 95 10/05/17 04:22 20 10/05/17 04:00 83 10/05/17 04:00 98.8 81 20 141/77 (98) 95 10/04/17 23:59 98.7 86 20 121/87 (98) 95 10/04/17 20:00 99.4 93 20 130/88 (102) 95 10/04/17 20:00 87 10/04/17 18:21 98.9 103 16 137/87 (104) 96 I/O 10/04/17 10/04/17 10/04/17 10/05/17 10/05/17 10/05/17 07:00 15:00 23:00 07:00 15:00 23:00 Intake Total 480 ml 700 ml 440 ml Output Total 750 ml 1550 ml 800 ml Balance -270 ml -850 ml -360 ml Intake Oral 480 ml 700 ml 440 ml Output Urine Total 750 ml 1550 ml 800 ml # Bowel Movements 0 0 Result Diagram: 10/04/17 [address] Angiography 10/01/17 0000 Signed Impressions: Service Date/Time: September 09:19 - CONCLUSION: 1. No evidence of PE. 2. Scattered areas of bibasilar atelectasis. 3. Diffuse fatty infiltration of the liver. Bryson Ramirez MD Chest X-Ray 09/28/17 0000 Signed Impressions: Service Date/Time: Thursday, September 28, 2017 09:20 - CONCLUSION: Mild apparent streaky atelectasis in the lung bases with no evidence of pneumonia. Corey Howard MD Lower Extremity Ultrasound 09/27/17 0639 Signed Impressions: Service Date/Time: Wednesday, September 27, 2017 07:18 - CONCLUSION: Extensive occlusive and nonocclusive deep venous thrombus within the right superficial femoral, popliteal, peroneal and posterior tibial veins. Geremias Garibay MD Objective Remarks GENERAL: looks anxious- but better than yesterday. CARDIOVASCULAR: Regular rate and regular rhythm without murmurs, gallops, or rubs. RESPIRATORY: Clear to auscultation. Breath sounds equal bilaterally. No wheezes , rales, or rhonchi. GASTROINTESTINAL: Abdomen soft, non-tender, nondistended. Normal, active bowel sounds MUSCULOSKELETAL: swelling and some tenderness of the right leg. NEURO: Alert & Oriented x4 to person, place, time, situation. Moves all ext x4 - some tremors of the hands noted. Procedures none Medications and IVs Inpatient Medications Acetaminophen (Tylenol) 650 mg Q4H PRN PO FEVER/ PAIN 1-2 Last administered on 10/02/17at 12:11; Start 09/27/17 at 10:45 Acetaminophen/ Hydrocodone Bitart ([place] 5-325 Mg) 2 tab Q6H PRN PO PAIN 8-10 Last administered on 10/05/17at 08:45; Start 09/30/17 at 10:15 Apixaban (Eliquis) 10 mg BID PO Last administered on 09/28/17at 09:40; Start at 12:00; Stop 09/28/17 at 09:56; Status DC Chlordiazepoxide (Librium) 5 mg TID PO Last administered on 10/05/17at 08:44; Start 10/04/17 at 13:00 Ferrous Sulfate (Ferrous Sulfate) 325 mg DAILY PO Last administered on at 08:44; Start 10/05/17 at 09:00 Flumazenil (Romazicon Inj) 0.2 mg Q1M PRN IV PUSH SEE LABEL COMMENTS; Start at 08:30 Heparin Sodium/ Dextrose 250 ml @ 11.44 mls/ hr TITRATE PRN IV Coagulation Management; Start 09/27/17 at 08:15; Stop 09/27/17 at 09:35; Status DC Ketorolac Tromethamine (Toradol Inj) 30 mg ONCE ONCE IVP Last administered on 09/27/17at 08:55; Start 09/27/17 at 08:15; Stop 09/27/17 at 08:16; Status DC Lorazepam (Ativan Inj) 2 mg Q15M PRN IV PUSH CIWA > 20; Start 3/25/18 at 08:30 Lorazepam (Ativan) 2 mg Q2H PRN PO CIWA 11-14 Last administered on 10/03/17 23 :18; Start 09/27/17 at 08:30 Metoprolol Tartrate (Lopressor) 25 mg Q12HR PO Last administered on 10/05/17 08 :44; Start 10/02/17 at 10:00 Naloxone HCl (Narcan Inj) 0.4 mg UNSCH PRN IV PUSH SEE LABEL COMMENTS; Start at 10:45 Ondansetron HCl (Zofran Inj) 4 mg Q6H PRN IVP NAUSEA OR VOMITING; Start at 10:45 Pantoprazole Sodium (Protonix) 40 mg Q12HR PO Last administered on 10/05/17 08: 44; Start 09/27/17 at 15:00 Rivaroxaban (Xarelto) 15 mg BID PO Last administered on 10/05/17 08:45; Start 09/28/17 at 21:00 Sodium Chloride (NS Flush) 2 ml BID IV FLUSH Last administered on 10/05/17 09: 00; Start 09/27/17 at 21:00 A/P Assessment and Plan DVT -continue with Xarelto. Fever- resolved. -Most likely secondary to DVT. -CXR with no evidence of pneumonia. blood cultures negative so far- UA negative. -repeat blood cultures negative. tachycardia-likely due to alcohol withdrawal and pain-overall improving. CTA chest negative for PE. started on librium and metoprolol- continue to monitor. 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 -Continue with CIWA protocol. Gastritis/duodenitis -Patient noncompliant. He is supposed to take Protonix at home. Continue with Protonix. anemia- hypochromic/microcytic- stool for blood pending.H/H fairly stable. consulted PT. Discharge Planning dc home. see med list. case management to assist with dc meds. f/u; pcp. Chuy Montano MD Oct 05, 2017 12:19
[2017-10-05] MEDS ORDERED: VITA100T54 PO (12:28)
[2017-10-05] MEDS ORDERED: PANT40TA3 PO (12:28)
[2017-10-05] MEDS ORDERED: MULT1TAB46 PO (12:28)
[2017-10-05] MEDS ORDERED: FERR325T20 PO (12:28)
[2017-10-05] MEDS ORDERED: METO25TA3 PO (12:28)
[2017-10-05] MEDS ORDERED: XARE15TA PO ×2 (12:28→12:57)
[2017-10-05] MEDS ORDERED: NORC5TAB PO (12:59)
--- NOTE | 2017-10-05 12:59 | HHI.DS ---
Discharge Summary Admission Date Sep 27, 2017 at 10:39 Discharge Date: Oct 05, 2017 Admitting Diagnosis DVT/alcoholism (1) DVT (deep venous thrombosis) ICD Code: I82.409 - Acute embolism and thrombosis of unspecified deep veins of unspecified lower extremity Diagnosis: Principal Status: Acute Procedures none Brief History - From Admission This is a 51-year-old male with current alcohol abuse who presented with right leg pain. Patient stated that he was doing his normal activities and then he started to have pain a few days ago so he came to the hospital. Patient denied any long car rides or being sedentary. Patient had a Doppler done in the emergency department which she was found to have a DVT. Patient denies any nausea,vomiting, abdominal pain, or tremors. He shows no signs of alcohol withdrawal. During my interview with patient his heart rate was in the 80s. Patient stated that his last drink was yesterday. All other review of system reviewed and negative. CBC/BMP: 10/04/17 0255 Significant Findings Laboratory Tests Test 10/03/17 07:36 10/03/17 10:10 10/04/17 02:55 10/04/17 15:06 Red Blood Count 3.61 MIL/MM3 (4.50-5.90) 3.56 MIL/MM3 (4.50-5.90) Hemoglobin 8.8 GM/DL (13.0-17.0) 8.8 GM/DL (13.0-17.0) Hematocrit 27.8 % (39.0-51.0) 27.5 % (39.0-51.0) Mean Corpuscular Volume 77.1 FL (80.0-100.0) 77.2 FL (80.0-100.0) Mean Corpuscular Hemoglobin 24.4 PG (27.0-34.0) 24.6 PG (27.0-34.0) Mean Corpuscular Hemoglobin Concent 31.6 % (32.0-36.0) 31.9 % (32.0-36.0) Red Cell Distribution Width 23.4 % (11.6-17.2) 22.5 % (11.6-17.2) Iron Level 15 MCG/DL (65-175) Percent Iron Saturation 5.5 % (20-50) Monocytes (%) (Auto) 17.1 % (0.0-8.0) Monocytes # (Auto) 1.0 TH/MM3 (0-0.9) Imaging Last Impressions CT Angiography 10/01/17 0000 Signed Impressions: Service Date/Time: September 09:19 - CONCLUSION: 1. No evidence of PE. 2. Scattered areas of bibasilar atelectasis. 3. Diffuse fatty infiltration of the liver. Bryson Ramirez MD Chest X-Ray 09/28/17 0000 Signed Impressions: Service Date/Time: Thursday, September 28, 2017 09:20 - CONCLUSION: Mild apparent streaky atelectasis in the lung bases with no evidence of pneumonia. Corey Howard MD Lower Extremity Ultrasound 09/27/17 0639 Signed Impressions: Service Date/Time: Wednesday, September 27, 2017 07:18 - CONCLUSION: Extensive occlusive and nonocclusive deep venous thrombus within the right superficial femoral, popliteal, peroneal and posterior tibial veins. Geremias Garibay MD PE at Discharge GENERAL: looks anxious- but better than yesterday. CARDIOVASCULAR: Regular rate and regular rhythm without murmurs, gallops, or rubs. RESPIRATORY: Clear to auscultation. Breath sounds equal bilaterally. No wheezes , rales, or rhonchi. GASTROINTESTINAL: Abdomen soft, non-tender, nondistended. Normal, active bowel sounds MUSCULOSKELETAL: swelling and some tenderness of the right leg. NEURO: Alert & Oriented x4 to person, place, time, situation. Moves all ext x4 - some tremors of the hands noted. Hospital Course DVT -continue with Xarelto. Fever- resolved. -Most likely secondary to DVT. -CXR with no evidence of pneumonia. blood cultures negative so far- UA negative. -repeat blood cultures negative. tachycardia-likely due to alcohol withdrawal and pain-overall improving. CTA chest negative for PE. started on librium and metoprolol- continue to monitor. 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 -Continue with CIWA protocol. Gastritis/duodenitis -Patient noncompliant. He is supposed to take Protonix at home. Continue with Protonix. anemia- hypochromic/microcytic- stool for blood pending.H/H fairly stable. Pt Condition on Discharge: Fair Discharge Disposition: Discharge Home Discharge Time: <= 30 minutes Chuy Montano MD Oct 05, 2017 12:59
== END 2017-10-05 17:29 | disposition home or self-care (01) ==
LOC: NEPD 04:13 → NEDA 10:39 → INTOOBSV 10:39 → N07A 14:31
PROVIDERS: ADMIT Internal Medicine; ATTEND Internal Medicine
DX: I82.411 Acute embolism and thrombosis of right femoral vein (principal); I82.441 Acute embolism and thrombosis of right tibial vein; F10.230 Alcohol dependence with withdrawal, uncomplicated; R60.0 Localized edema; I10 Essential (primary) hypertension; R00.0 Tachycardia, unspecified; M79.604 Pain in right leg; F32.9 Major depressive disorder, single episode, unspecified; K76.0 Fatty (change of) liver, not elsewhere classified; K29.80 Duodenitis without bleeding; K29.70 Gastritis, unspecified, without bleeding; K57.90 Diverticulosis of intestine, part unspecified, without perforation or abscess without bleeding; Z82.49 Family history of ischemic heart disease and other diseases of the circulatory system; Z59.0 Homelessness; Z91.19 Patient's noncompliance with other medical treatment and regimen
CPT/HCPCS: 71046; 71275; 80048; 80053; 80307; 81001; 82728; 83540; 83550; 85025; 85027; 85379; 85610; 85730; 86038; 87040; 93005; 93971; 96361; 96374; 97162; 99285; G0378; J1885; J7030; Q9967

== ENCOUNTER 2018-08-18 14:13 | Inpatient (IN) ==
[2018-08-18] MEDS ORDERED: Sod Chloride 0.9% Inj 1,000 ML IV.SIG ONE ×2 (14:39→15:27)
[2018-08-18] MEDS ORDERED: Acetaminophen 325 MG Tablet PO ONE (14:39)
--- NOTE | 2018-08-18 14:43 | ED ---
HPI General Chief Complaint: Respiratory Symptoms Stated Complaint: respiratory Time Seen by Provider: 08/18/18 14:37 Source: patient and EMS Mode of arrival: EMS Limitations: no limitations History of Present Illness HPI Narrative: 52-year-old male with PMH of HTN, homelessness presents to the ED via EMS for evaluation of 4-day history of subjective fevers, chills, cough productive of yellow-green phlegm, sinus congestion, body aches. Patient endorses pleuritic type chest pain and dyspnea on exertion. He endorses palpitations. He endorses nausea. He denies abdominal pain, changes in bowel habits, dysuria. He is a non-smoker. He does not receive this years flu vaccine. EMS administered Solu-Medrol and 1 albuterol nebulizer treatment in route. Patient states that the chest pain is now resolved. He denies illicit drug use. He endorses occasional alcohol use, last drank alcohol 2 days ago. Related Data Home Medications Medication Instructions Recorded Confirmed No Known Home Medications 04/29/18 08/18/18 Allergies Allergy/AdvReac Type Severity Reaction Status Date / Time penicillin G Allergy Intermediate Hives Verified 05/12/18 11:58 Review of Systems ROS: all other systems reviewed are negative [facility] Medical History Medical History Anxiety (Acute) Depression (Acute) Hypertension (Acute) Insomnia (Acute) Surgical History Surgical History H/O neck surgery (Acute) Social History Social History Substance History: No History of Abuse Second Hand Smoke Exposure: No Smoking Status: Never smoker Tobacco Type: Cigarettes How Often Do You Have a Drink Containing Alcohol: 2 to 3 times a week Recent Travel in [facility] within the Last 8 Weeks: No Recent Out of Country Travel within the Last 8 Weeks: No Exam Narrative Exam Narrative: GENERAL: Well-developed thin white male in no acute distress. SKIN: Focused skin assessment warm/dry. HEAD: Atraumatic. Normocephalic. EYES: Pupils equal and round. No scleral icterus. No injection or drainage. ENT: Pearly lam tympanic membranes bilaterally. No nasal bleeding or discharge. Oropharynx without erythema, edema, exudate. Mucous membranes pink and moist. NECK: Trachea midline. No JVD. CARDIOVASCULAR: Regular rate and rhythm. No murmur appreciated. RESPIRATORY: No accessory muscle use. Mild end expiratory wheezing noted. Breath sounds equal bilaterally. Patient has a wet sounding cough. GASTROINTESTINAL: Abdomen soft, non-tender, nondistended. Hepatic and splenic margins not palpable. MUSCULOSKELETAL: No obvious deformities. No clubbing. No cyanosis. No edema. NEUROLOGICAL: Awake and alert. No obvious cranial nerve deficits. Motor grossly within normal limits. Normal speech. PSYCHIATRIC: Appropriate mood and affect; insight and judgment normal. Course Initial Documented Vital Signs Temperature 100 F H 08/18/18 14:36 Pulse Rate 121 H 08/18/18 14:36 Respiratory Rate 22 08/18/18 14:36 Blood Pressure 117/80 08/18/18 14:36 Pulse Oximetry 91 L 08/18/18 14:36 Last Documented Vital Signs Temperature 98.4 F 08/18/18 19:10 Pulse Rate 85 08/18/18 19:10 Respiratory Rate 18 08/18/18 19:10 Blood Pressure 114/81 08/18/18 19:10 Pulse Oximetry 98 08/18/18 19:10 Medical Decision Making LORELEI Attestation LORELEI supervised visit: Yes Attestation: I, Dr. Miranda, have reviewed the advance practice practitioner's documentation and am in agreement, met with the patient face to face, made the diagnosis, and the medical decision making was done by me. *My assessment and Findings: Patient is a 52-year-old male who presents with complaint of flulike symptoms. He is tachycardic but hemodynamically stable on arrival. Labs reveal white blood cell count of 11 with a thrombocytosis which may be an acute phase reactant and anemia. CXR does not reveal consolidation. CTA is concerning for pneumonia. He has not been admitted in the last 3 months. He has been given rocephin and azithromycin and admitted. [facility] Narrative Medical decision making narrative: 52-year-old male with PMH of HTN, homelessness presents to the ED via EMS for evaluation of 4-day history of subjective fevers, chills, cough productive of yellow-green phlegm, sinus congestion, body aches. EMS reports tachycardia in the field and administered 120mg of Solu-Medrol, 1 albuterol breathing treatment and 1 L normal saline in route. On arrival patient is febrile with a temp 100, pulse rate 121, O2 saturations 91% with a respiratory rate of 22 and a BP of 117/80. On exam the patient is ill-appearing but lung sounds are clear and equal bilaterally. No lower extremity edema. IV was established. Sepsis workup and fluid bolus was initiated. Patient was placed on 2 L O2 by nasal cannula, O2 sats improved to 98%. Patient was administered Tylenol by mouth. Influenza swab negative. Patient was administered azithromycin and Rocephin to cover for community- acquired pneumonia. CBC shows WBCs 11.2, hemoglobin 8.1, platelet 536. Anemia appears chronic per chart review. CMP with sodium of 131, glucose 128. Lactic acid 1.2. Chest x-ray clear per radiology read. CTA reveals bilateral dependent lower lobe consolidation left greater than right with a somewhat nodular area of pleural-based consolidation in the posterior left lobe measuring 2.8 cm. Adjacent tree-in-bud opacity in the left lower lobe also noted. No evidence of PE. Plan to admit. Patient's agreeable to the plan. I spoke with Dr. Erwin who agrees to accept the patient to the medicine service. Please see medicine notes for disposition. Medical Screen Exam Complete: Yes Emergency Medical Condition: Yes Differential Diagnosis Differential Diagnosis: Viral syndrome versus influenza versus pneumonia versus PE versus other Lab Data Result diagrams: 08/18/18 14:47 08/18/18 14:47 Lab Results 08/18/18 08/18/18 08/18/18 Range/Units 14:47 14:47 14:47 WBC 11.2 H (4.0-11.0) th/mm3 RBC 3.55 L (4.50-5.90) mil/mm3 Hgb 8.1 L (13.0-17.0) gm/dL Hct 24.7 L (39.0-51.0) % MCV 69.5 L (80.0-100.0) fL MCH 22.8 L (27.0-34.0) pg MCHC 32.8 (32.0-36.0) % RDW 20.2 H (11.6-17.2) % Plt Count 536 H (150-450) th/mm3 MPV 7.8 (7.0-11.0) fL Prelim Diff (Auto) Neut % (Auto) 72.5 H (16.0-70.0) % Lymph % (Auto) 18.2 (9.0-44.0) % [place] % (Auto) 8.7 H (0.0-8.0) % Eos % (Auto) 0.4 (0.0-4.0) % Baso % (Auto) 0.2 (0.0-2.0) % Neut # (Auto) 8.2 H (1.8-7.7) th/mm3 Lymph # (Auto) 2.0 (1.0-4.8) th/mm3 [place] # (Auto) 1.0 H (0.0-0.9) th/mm3 Eos # (Auto) 0.0 (0.0-0.4) th/mm3 Baso # (Auto) 0.0 (0.0-0.2) th/mm3 WBC Differential . Differential Comment Auto diff final Hematology Comments Sodium 131 L (136-145) meq/L Potassium 4.0 (3.5-5.1) meq/L Chloride 99 (98-107) meq/L Carbon Dioxide 20.5 L (21.0-32.0) meq/L Anion Gap 12 (5-15) meq/L BUN 8 (7-18) mg/dL Creatinine 0.70 (0.60-1.30) mg/dL Estimated GFR Greater than 89 (>89) mL/min Random Glucose 128 H (74-106) mg/dL Lactic Acid 1.2 (0.4-2.0) mmol/L Calcium 8.3 L (8.5-10.1) mg/dL Total Bilirubin 1.5 H (0.2-1.0) mg/dL AST 23 (15-37) U/L ALT 17 (12-78) U/L Alkaline Phosphatase 59 (45-117) U/L Troponin I Less than 0.02 L (0.02-0.05) ng/mL Total Protein 7.4 (6.4-8.2) g/dL Albumin 3.2 L (3.4-5.0) g/dL Imaging Data Radiologist's impression: Chest X-Ray 08/18/18 14:39 CONCLUSION: The lungs are clear. Chest CTA 08/18/18 14:44 CONCLUSION: 1. No evidence of pulmonary was. 2. Bilateral dependent lower lobe consolidation left greater than right. Pleural-based area in the posterior left lower lobe is also likely consolidation or atelectasis. ECG Data EKG Prior to Arrival: No Attestation: I personally reviewed and interpreted this ECG as follows: Interpretation: Rate 90, sinus rhythm. DE interval 176, QRS 98, QTc 421 ms. Normal axis. No acute ST changes. Reviewed by Dr. Miranda. Discharge Plan Discharge Disposition Patient Disposition: ED Admit(ED Internal Use Only) Discharge Order Discharge Orders: ED Use Only Admit Order (Routine); Ordered 08/18/18 Ordered By: Katie Perrin Physicians Team ED Provider: Estefania Miranda ED Midlevel Provider: Katie Perrni Primary Care Provider: Primary Care Vanessa King Attending Provider: Toya Erwin Status ED Status: Admitted Patient
--- NOTE | 2018-08-18 15:17 | XR ---
EXAM DATE: 08/18/2018 3:04 PM EST AGE/SEX: 52 years / Male INDICATIONS: Cough CLINICAL DATA: This is the patient's initial encounter. Patient reports that signs and symptoms have been present for 3 days and indicates a pain score of 0/10. MEDICAL/SURGICAL HISTORY: Hypertension. . cervical spine surgery. COMPARISON: No prior exams available for comparison. FINDINGS: A single AP view of the chest demonstrates the lungs to be symmetrically aerated without evidence of mass, infiltrate or effusion. The cardiomediastinal contours are unremarkable. Osseous structures a re intact. CONCLUSION: The lungs are clear. Electronically signed by: Galindo Webb MD Board Certified Radiologist 08/18/2018 3:16 PM EST
[2018-08-18 15:21] LABS: Albumin 3.2 g/dL (3.4-5.0); Anion Gap 12 meq/L (5-15); Aspartate Aminotransferase 23 U/L (15-37); Blood Urea Nitrogen 8 mg/dL (7-18); Calcium 8.3 mg/dL (8.5-10.1); Carbon Dioxide 20.5 meq/L (21.0-32.0); Chloride 99 meq/L (98-107); Glomerular Filtration Rate Greater Than 89 mL/min (>89); Glucose,Random 128 mg/dL (74-106); Sodium 131 meq/L (136-145)
[2018-08-18 15:28] LABS: Alanine Aminotransferase 17 U/L (12-78); Alkaline Phosphatase 59 U/L (45-117); Baso % (Auto) 0.2 % (0.0-2.0); Eos % (Auto) 0.4 % (0.0-4.0); Hematocrit 24.7 % (39.0-51.0); Hemoglobin 8.1 gm/dL (13.0-17.0); Lymph % (Auto) 18.2 % (9.0-44.0); Mean Corpuscular HGB Conc 32.8 % (32.0-36.0); Mean Corpuscular Hemoglobin 22.8 pg (27.0-34.0); Mean Corpuscular Volume 69.5 fL (80.0-100.0); Mean Platelet Volume 7.8 fL (7.0-11.0); Mono % (Auto) 8.7 % (0.0-8.0); Neut # (Auto) 8.2 th/mm3 (1.8-7.7); Neut % (Auto) 72.5 % (16.0-70.0); Platelet Count 536 th/mm3 (150-450); Red Blood Count 3.55 mil/mm3 (4.50-5.90); Red Cell Distribution Width 20.2 % (11.6-17.2); Total Protein 7.4 g/dL (6.4-8.2); White Blood Count 11.2 th/mm3 (4.0-11.0)
[2018-08-18] MEDS ORDERED: Azithromycin Inj 500 MG in Sodium Chlor 0.9% Inj 250 ML IV.SIG ONE (15:47)
--- NOTE | 2018-08-18 16:32 | CT ---
EXAM DATE: 08/18/2018 4:20 PM EST AGE/SEX: 52 years / Male INDICATIONS: Tachycardia flu like symptoms for two to three days. CLINICAL DATA: This is the patient's initial encounter. Patient reports that signs and symptoms have been present for 2 days and indicates a pain score of 0/10. MEDICAL/SURGICAL HISTORY: Hypertension. None. RADIATION DOSE: 7.01 CTDI (mGy) COMPARISON: . TECHNIQUE: Volumetric scanning was performed using a multi-row detector CT scanner during bolus infu larry of 74 ml Omnipaque 350 (iohexol) nonionic water-soluble contrast as a single exam dose. The gage a was post processed with a variety of visualization algorithms including full volume maximum intensi ty projection and sliding thin slab reformation. Using automated exposure control and adjustment of the mA and/or kV according to patient size, radiation dose was kept as low as reasonably achievable t o obtain optimal diagnostic quality images. DICOM format image data is available electronically for review and comparison. FINDINGS: Pulmonary Arteries: No abnormal filling defects in the pulmonary arteries to suggest pulmonary embol us. Lung: Bilateral dependent lower lobe pulmonary consolidation left greater than right with a somewhat nodular area of pleural-based consolidation in the posterior left lower lobe on image #63 measuring 2.8 cm. Adjacent tree-in-bud opacity of the left lower lobe also noted. Effusion: None. Mediastinum: Multiple mildly prominent mediastinal lymph nodes. The largest is in the aorticopulmona ry window measuring 1.8 cm in short axis dimension. This is likely unchanged when compared to the ike or study of 10/01/2017. There is some motion artifact in the areas of the lymph nodes. Other: The axilla is unremarkable. CONCLUSION: 1. No evidence of pulmonary was. 2. Bilateral dependent lower lobe consolidation left greater than right. Pleural-based area in the p osterior left lower lobe is also likely consolidation or atelectasis. Electronically signed by: Davie Alberto MD Board Certified Radiologist 08/18/2018 4:30 PM EST
[2018-08-18] MEDS ORDERED: Bisacodyl 10 MG Supp RECTAL PRN (17:33)
[2018-08-18] MEDS ORDERED: Acetaminophen 325 MG Tablet PO PRN (17:33)
--- NOTE | 2018-08-18 17:42 | P.HPIM ---
History of Present Illness Primary Care Physician: No Primary Care Physician Chief Complaint: sob, cough History of Present Illness: 52-year-old male with PMH of HTN, homelessness presents to the ED via EMS for evaluation of 4-day history of subjective fevers , chills, cough productive of yellow-green phlegm, sinus congestion, body aches. Patient endorses pleuritic type chest pain and dyspnea on exertion. He endorses palpitations. He endorses nausea. He denies abdominal pain, changes in bowel habits, dysuria. He is a non-smoker. He does not receive this years flu vaccine. EMS administered Solu-Medrol and 1 albuterol nebulizer treatment in route. Patient states that the chest pain is now resolved. He denies illicit drug use. He endorses occasional alcohol use, last drank alcohol 2 days ago. Found with PNA started on IV abx , patient also with sepsis criteria on admission. Inpatient Certification Inpatient Certification: I certify that the inpatient services were ordered in accordance with Medicare regulations governing the order. This includes certification that hospital inpatient services are reasonable and necessary and in the case of services not specified as inpatient-only under 42 CFR 419.22(n), that they are appropriately provided as inpatient services in accordance to with the 2-midnight benchmark under 43 CFR 412.3(e) Estimated Total Length of Stay (Days): 3 Plans for Post Hospital Care: Home Review of Systems Review of Systems: all other systems reviewed are negative [facility] Medical History Medical History Anxiety (Acute) Depression (Acute) Hypertension (Acute) Insomnia (Acute) Surgical History Surgical History H/O neck surgery (Acute) Family History Family History Other HTN (hypertension) Social History Social History Substance History: No History of Abuse Second Hand Smoke Exposure: No Smoking Status: Never smoker Tobacco Type: Cigarettes How Often Do You Have a Drink Containing Alcohol: 2 to 3 times a week Recent Travel in [facility] within the Last 8 Weeks: No Recent Out of Country Travel within the Last 8 Weeks: No Immunization History Tetanus Immunization: Unsure Medications and Allergies Allergies Allergy/AdvReac Type Severity Reaction Status Date / Time penicillin G Allergy Intermediate Hives Verified 05/12/18 11:58 Home Medications Medication Instructions Recorded Confirmed Type No Known Home Medications 04/29/18 08/18/18 History Active Medications: Active Medications Sodium Chloride (Ns Flush) 2 ml IV.FLUSH PRN PRN PRN Reason: FLUSH AFTER USING IV ACCESS Physical Exam Vital signs: Vital Signs 08/18/18 14:36 08/18/18 14:39 08/18/18 14:41 Temperature 100 F H 100 F H Pulse Rate 121 H 108 H Respiratory Rate 22 24 Blood Pressure 117/80 120/83 Pulse Oximetry 91 L 99 93 L 08/18/18 14:43 08/18/18 15:06 08/18/18 16:30 Temperature 98.5 F Pulse Rate 89 Respiratory Rate 22 20 Blood Pressure 125/78 Pulse Oximetry 98 97 08/18/18 17:30 Temperature 98.1 F Pulse Rate 82 Respiratory Rate 20 Blood Pressure 124/71 Pulse Oximetry 98 Intake & Output 08/17/18 08/18/18 08/18/18 18:59 06:59 18:59 Intake Total 2250 / 2250 Output Total 1400 / 1400 Balance 850 / 850 Weight 62.596 kg Intake: IV 2250 / 2250 Azithromycin Inj 500 MG In NS 250 / 250 Inj 250 ML @ 250 mls/hr IV.SIG ONCE ONE Rx#:[id number] NS Inj 1,000 ML @ Wide Open IV. 1999 SIG BOLUS ONE Rx#:[id number] Output: Urine 1400 / 1400 Other: # Voids 3 Narrative: GENERAL: 52 yo male, appears sob SKIN: Warm and dry. HEAD: Atraumatic. Normocephalic. EYES: Pupils equal and round. No scleral icterus. No injection or drainage. ENT: No nasal bleeding or discharge. Mucous membranes pink and moist. NECK: Trachea midline. No JVD. CARDIOVASCULAR: Regular rate and rhythm. RESPIRATORY: No accessory muscle use. + bronchial sounds, scattered wheezing. GASTROINTESTINAL: Abdomen soft, non-tender, nondistended. Hepatic and splenic margins not palpable. MUSCULOSKELETAL: Extremities without clubbing, cyanosis, or edema. No obvious deformities. NEUROLOGICAL: Awake and alert. No obvious cranial nerve deficits. Motor grossly within normal limits. Five out of 5 muscle strength in the arms and legs. Normal speech. PSYCHIATRIC: Appropriate mood and affect; insight and judgment normal. Results Labs CBC & Chem 7: 08/18/18 14:47 08/18/18 14:47 Imaging Impressions Chest X-Ray 08/18/18 14:39 CONCLUSION: The lungs are clear. Chest CTA 08/18/18 14:44 CONCLUSION: 1. No evidence of pulmonary was. 2. Bilateral dependent lower lobe consolidation left greater than right. Pleural-based area in the posterior left lower lobe is also likely consolidation or atelectasis. Caprini VTE Risk Assessment Caprini VTE Risk Assessment: Moderate/High Risk (score >= 2) Caprini Risk Assessment Model: Point Value = 1 Point Value = 2 Point Value = 3 Point Value = 5 Age 41-60 Minor surgery BMI > 25 kg/m2 Swollen legs Varicose veins or History of unexplained or recurrent spontaneous Oral contraceptives or hormone replacement Sepsis (< 1 month) Serious lung disease, including pneumonia (< 1 month) Abnormal pulmonary function Acute myocardial infarction Congestive heart failure (< 1 month) History of inflammatory bowel disease Medical patient at bed rest Age 61-74 Arthroscopic surgery Major open surgery (> 45 min) Laparoscopic surgery (> 45 min) Malignancy Confined to bed (> 72 hours) Immobilizing plaster cast Central venous access Age >= 75 History of VTE Family history of VTE Factor V Leiden Prothrombin [id number] Lupus anticoagulant Anticardiolipin antibodies Elevated serum homocysteine Heparin-induced thrombocytopenia Other congenital or acquired thrombophilia Stroke (< 1 month) Elective arthroplasty Hip, pelvis, or leg fracture Acute spinal cord injury (< 1 month) Prophylaxis Regimen: Total Risk Factor Score Risk Level Prophylaxis Regimen 0-1 Low Early ambulation 2 Moderate Order ONE of the following: *Sequential Compression Device (SCD) *Heparin 5000 units SQ BID 3-4 Higher Order ONE of the following medications: *Heparin 5000 units SQ TID *Enoxaparin/Lovenox 40 mg SQ daily (WT < 150 kg, CrCl > 30 mL/min) *Enoxaparin/Lovenox 30 mg SQ daily (WT < 150 kg, CrCl > 10-29 mL/min) *Enoxaparin/Lovenox 30 mg SQ BID (WT < 150 kg, CrCl > 30 mL/min) AND/OR *Sequential Compression Device (SCD) 5 or more Highest Order ONE of the following medications: *Heparin 5000 units SQ TID (Preferred with Epidurals) *Enoxaparin/Lovenox 40 mg SQ daily (WT < 150 kg, CrCl > 30 mL/min) *Enoxaparin/Lovenox 30 mg SQ daily (WT < 150 kg, CrCl > 10-29 mL/min) *Enoxaparin/Lovenox 30 mg SQ BID (WT < 150 kg, CrCl > 30 mL/min) AND *Sequential Compression Device (SCD) Assessment and Plan Plan 52 yo male homeless with sob, cough Sepsis leukocytosis, tachy, PNA blood cx pending CXR reviewed Start IV abx rocephin and azithro dashawn , IS Monitor on tele DVT ppx lovenox Discussed with the patient. nurse
[2018-08-18] MEDS: Sod Chloride 0.9% Inj 1,000 ML IV.CONT SCH (18:32)
[2018-08-18] MEDS: Enoxaparin Inj 40 MG/0.4 ML Syringe SQ SCH (21:24)
[2018-08-18] MEDS: Senna/Docusate Sodium 8.6/50 MG Tablet PO SCH (21:25)
[2018-08-19] MEDS: Sod Chloride 0.9% Inj 1,000 ML IV.CONT SCH ×2 (03:37→15:36)
[2018-08-19 07:12] LABS: Alanine Aminotransferase 14 U/L (12-78); Albumin 2.6 g/dL (3.4-5.0); Alkaline Phosphatase 88 U/L (45-117); Anion Gap 7 meq/L (5-15); Aspartate Aminotransferase 15 U/L (15-37); Blood Urea Nitrogen 9 mg/dL (7-18); Calcium 8.1 mg/dL (8.5-10.1); Carbon Dioxide 23.8 meq/L (21.0-32.0); Chloride 109 meq/L (98-107); Glomerular Filtration Rate Greater Than 89 mL/min (>89); Glucose,Random 175 mg/dL (74-106); Potassium 4.4 meq/L (3.5-5.1); Sodium 140 meq/L (136-145); Total Protein 6.8 g/dL (6.4-8.2)
[2018-08-19 07:18] LABS: Baso # (Auto) 0.1 th/mm3 (0.0-0.2); Baso % (Auto) 0.6 % (0.0-2.0); Hematocrit 25.6 % (39.0-51.0); Hemoglobin 8.4 gm/dL (13.0-17.0); Lymph # (Auto) 1.3 th/mm3 (1.0-4.8); Lymph % (Auto) 13.6 % (9.0-44.0); Mean Corpuscular HGB Conc 32.7 % (32.0-36.0); Mean Corpuscular Hemoglobin 22.8 pg (27.0-34.0); Mean Corpuscular Volume 69.9 fL (80.0-100.0); Mean Platelet Volume 7.9 fL (7.0-11.0); Mono # (Auto) 0.5 th/mm3 (0.0-0.9); Mono % (Auto) 5.2 % (0.0-8.0); Neut # (Auto) 7.9 th/mm3 (1.8-7.7); Neut % (Auto) 80.6 % (16.0-70.0); Platelet Count 538 th/mm3 (150-450); Red Blood Count 3.66 mil/mm3 (4.50-5.90); Red Cell Distribution Width 20.6 % (11.6-17.2); White Blood Count 9.8 th/mm3 (4.0-11.0)
[2018-08-19] MEDS: Senna/Docusate Sodium 8.6/50 MG Tablet PO SCH ×2 (08:46→22:31)
--- NOTE | 2018-08-19 11:45 | ECG ---
Date Performed: 08/18/2018 Time Performed: 17:01:19 PTAGE: 52 years EKG: Sinus rhythm NORMAL ECG Compared to PREVIOUS TRACING , mild diffuse ST elevation suggestive of early repolarization but no ch sondra from the prior tracing. PREVIOUS TRACIN09/27/2017 09.00 DOCTOR: Luis Grajeda Interpretating Date/Time 08/19/2018 11:44:41
[2018-08-19] MEDS: Azithromycin Inj 500 MG in Sodium Chlor 0.9% Inj 250 ML IV.SIG SCH (15:36)
--- NOTE | 2018-08-19 15:46 | P.PNIM ---
Subjective Interval history: Patient sitting up in bed. Denies any chest pain. He says that shortness of breath is improving. Appears moderately short of breath, however appears comfortable. Physical Exam Vital signs: Vital Signs 08/18/18 16:30 08/18/18 17:30 08/18/18 17:33 Temperature 98.5 F 98.1 F Pulse Rate 89 82 89 Respiratory Rate 20 20 Blood Pressure 125/78 124/71 Pulse Oximetry 97 98 08/18/18 17:35 08/18/18 17:47 08/18/18 18:32 Temperature 98.1 F 98.1 F Pulse Rate 83 74 Respiratory Rate 17 20 Blood Pressure 118/83 124/71 Pulse Oximetry 98 100 98 08/18/18 18:50 08/18/18 19:10 08/18/18 20:00 Temperature 98.1 F 98.4 F Pulse Rate 86 85 85 Respiratory Rate 17 18 Blood Pressure 120/76 114/81 Pulse Oximetry 99 98 08/18/18 20:35 08/18/18 22:50 08/18/18 23:45 Temperature 97.2 F L 97.1 F L Pulse Rate 79 75 Respiratory Rate 17 18 Blood Pressure 110/65 100/66 Pulse Oximetry 97 96 100 08/19/18 05:00 08/19/18 08:00 08/19/18 08:03 Temperature 97.2 F L 97.1 F L Pulse Rate 73 59 L 58 L Respiratory Rate 18 17 Blood Pressure 108/65 115/75 Pulse Oximetry 97 100 08/19/18 12:00 08/19/18 12:02 08/19/18 13:18 Temperature 97.4 F L Pulse Rate 78 82 Respiratory Rate 17 Blood Pressure 96/60 L Pulse Oximetry 97 94 L Intake & Output 08/18/18 08/19/18 08/19/18 18:59 06:59 18:59 Intake Total 2350 / 2350 1480 / 1480 Output Total 2260 / 2260 1500 / 1500 Balance 90 / 90 -20 / -20 Weight 62.596 kg 60.3 kg Intake: IV 2350 / 2350 1000 / 1000 NS Inj 1,000 ML @ 100 mls/hr IV 1000 / 1000 .CONT .Q10H JACKIE Rx#:[id number] Azithromycin Inj 500 MG In NS 250 / 250 Inj 250 ML @ 250 mls/hr IV.SIG ONCE ONE Rx#:[id number] NS Inj 1,000 ML @ Wide Open IV. 1999 / 1999 SIG BOLUS ONE Rx#:[id number] Rocephin Inj 1,000 MG In NS Inj 100 / 100 100 ML @ 200 mls/hr IV.SIG ONCE ONE Rx#:[id number] Oral 480 / 480 Output: Urine 2260 / 2260 1500 / 1500 Other: # Voids 1 Date of Last Bowel Movement 08/18/18 # Bowel Movements 0 Weight On Admission 62.596 kg Narrative: GENERAL: Appears moderately short of breath, however appears comfortable. SKIN: Warm and dry. HEAD: Normocephalic. EYES: No scleral icterus. No injection or drainage. NECK: Supple, trachea midline. No JVD. CARDIOVASCULAR: Regular rate and rhythm without murmurs, gallops, or rubs. RESPIRATORY: Breath sounds equal bilaterally. With rhonchi and wheezes bilaterally. No accessory muscle use. GASTROINTESTINAL: Abdomen soft, non-tender, nondistended. MUSCULOSKELETAL: No cyanosis, or edema. BACK: Nontender without obvious deformity. No CVA tenderness. Results Labs CBC & Chem 7: 08/19/18 06:06 08/19/18 06:06 Labs: Microbiology 08/18/18 14:47 Blood - Peripheral Aerobic Blood Culture - Preliminary No growth in 1 day 08/18/18 14:47 Blood - Peripheral Anaerobic Blood Culture - Preliminary No growth in 1 day 08/18/18 14:47 Blood - Peripheral Aerobic Blood Culture - Preliminary No growth in 1 day 08/18/18 14:47 Blood - Peripheral Anaerobic Blood Culture - Preliminary No growth in 1 day 08/18/18 15:13 Nasal Wash Influenza Types A,B Antigen - Final Negative for FLU A and B antigen Infection due to influenza A or B cannot be ruled out since the antigen present in the sample may be below the detection limit of the test. Imaging Imaging: Impressions Chest CTA 08/18/18 14:44 CONCLUSION: 1. No evidence of pulmonary was. 2. Bilateral dependent lower lobe consolidation left greater than right. Pleural-based area in the posterior left lower lobe is also likely consolidation or atelectasis. Assessment and Plan Plan 52 yo male homeless with sob, cough //Sepsis //PNA -CT pulmonary angiogram on admission negative for PE, however shows bilateral lower lobe consolidations left greater than right. -Blood cultures negative to date. Influenza negative. = Improving slowly. Continue duo nebs, I-S. Continue Rocephin and azithromycin. Monitor on tele //DVT ppx lovenox Discussed Condition With: Patient, nurse Discharge Planning: Self-pay Pending improvement. Progress Note: Quality VTE Deep Vein Thrombosis/Pulmonary Embolism Present on Admission: No
[2018-08-19 15:57] LABS: Hemoglobin A1c 5.5 % (4.3-6.0)
[2018-08-19] MEDS: Benzonatate 100 MG Capsule PO PRN (17:41)
[2018-08-19] MEDS: Enoxaparin Inj 40 MG/0.4 ML Syringe SQ SCH (22:31)
[2018-08-19] MEDS: Zolpidem Tartrate 5 MG Tablet PO PRN (22:35)
[2018-08-20] MEDS: Sod Chloride 0.9% Inj 1,000 ML IV.CONT SCH ×4 (03:37→21:44)
[2018-08-20] MEDS: Benzonatate 100 MG Capsule PO PRN ×2 (03:50→21:47)
[2018-08-20 06:23] LABS: Albumin 2.4 g/dL (3.4-5.0); Anion Gap 6 meq/L (5-15); Blood Urea Nitrogen 8 mg/dL (7-18); Calcium 8.5 mg/dL (8.5-10.1); Carbon Dioxide 26.4 meq/L (21.0-32.0); Chloride 111 meq/L (98-107); Glomerular Filtration Rate Greater Than 89 mL/min (>89); Glucose,Random 102 mg/dL (74-106); Magnesium 2.1 mg/dL (1.5-2.5); Potassium 3.8 meq/L (3.5-5.1); Sodium 143 meq/L (136-145)
[2018-08-20 06:24] LABS: Phosphorus 3.3 mg/dL (2.5-4.9)
[2018-08-20 06:30] LABS: Baso # (Auto) 0.1 th/mm3 (0.0-0.2); Eos % (Auto) 0.2 % (0.0-4.0); Hematocrit 23.3 % (39.0-51.0); Hemoglobin 7.5 gm/dL (13.0-17.0); Lymph # (Auto) 2.5 th/mm3 (1.0-4.8); Lymph % (Auto) 24.4 % (9.0-44.0); Mean Corpuscular HGB Conc 32.3 % (32.0-36.0); Mean Corpuscular Hemoglobin 22.8 pg (27.0-34.0); Mean Corpuscular Volume 70.6 fL (80.0-100.0); Mean Platelet Volume 7.7 fL (7.0-11.0); Mono # (Auto) 0.8 th/mm3 (0.0-0.9); Mono % (Auto) 8.2 % (0.0-8.0); Neut # (Auto) 6.8 th/mm3 (1.8-7.7); Neut % (Auto) 66.2 % (16.0-70.0); Platelet Count 608 th/mm3 (150-450); Red Cell Distribution Width 20.3 % (11.6-17.2); White Blood Count 10.3 th/mm3 (4.0-11.0)
[2018-08-20] MEDS: Senna/Docusate Sodium 8.6/50 MG Tablet PO SCH ×2 (08:41→21:47)
--- NOTE | 2018-08-20 15:55 | P.PNIM ---
Subjective Interval history: Patient complains of chest congestion, continue dry cough. No active shortness of breath. No chills or fevers. Physical Exam Vital signs: Vital Signs 08/19/18 16:00 08/19/18 16:03 08/19/18 19:55 Temperature 97.3 F L Pulse Rate 72 77 76 Respiratory Rate 17 Blood Pressure 106/67 Pulse Oximetry 99 08/19/18 20:00 08/19/18 23:51 08/20/18 00:00 Temperature 98 F 98.0 F Pulse Rate 67 61 69 Respiratory Rate 18 16 Blood Pressure 119/81 118/82 Pulse Oximetry 98 100 08/20/18 03:30 08/20/18 03:55 08/20/18 08:00 Temperature 98.0 F 97.2 F L Pulse Rate 66 62 88 Respiratory Rate 16 16 Blood Pressure 130/74 132/89 Pulse Oximetry 100 98 08/20/18 10:20 08/20/18 12:00 Temperature 97.5 F L Pulse Rate 81 Respiratory Rate 16 Blood Pressure 119/80 Pulse Oximetry 95 99 Intake & Output 08/19/18 08/20/18 08/20/18 18:59 06:59 18:59 Intake Total 1830 / 1830 1240 / 1240 1000 / 1000 Output Total 900 / 900 1100 / 1100 Balance 930 / 930 140 / 140 1000 / 1000 Intake: IV 1350 / 1350 1000 / 1000 1000 / 1000 NS Inj 1,000 ML @ 100 mls/hr IV 1000 / 1000 1000 / 1000 1000 / 1000 .CONT .Q10H JACKIE Rx#:[id number] Azithromycin Inj 500 MG In NS 250 / 250 Inj 250 ML @ 250 mls/hr IV.SIG Q24H JACKIE Rx#:[id number] Rocephin Inj 1,000 MG In NS Inj 100 / 100 100 ML @ 200 mls/hr IV.SIG Q24H JACKIE Rx#:[id number] Oral 480 / 480 240 / 240 Output: Urine 900 / 900 1100 / 1100 Other: Date of Last Bowel Movement 08/18/18 # Bowel Movements 0 0 Narrative: GENERAL: Thin white male laying in bed in no acute distress CARDIOVASCULAR: Regular rate and rhythm RESPIRATORY: Patient with few rhonchi and wheezes bilaterally. GASTROINTESTINAL: Abdomen soft, non-tender, nondistended. Normoactive bowel sounds MUSCULOSKELETAL: No cyanosis, or edema. Neuro: Alert and oriented x3 Results Labs CBC & Chem 7: 08/20/18 05:21 08/20/18 05:21 Labs: Microbiology 08/18/18 14:47 Blood - Peripheral Aerobic Blood Culture - Preliminary No growth in 2 days 08/18/18 14:47 Blood - Peripheral Anaerobic Blood Culture - Preliminary No growth in 2 days 08/18/18 14:47 Blood - Peripheral Aerobic Blood Culture - Preliminary No growth in 2 days 08/18/18 14:47 Blood - Peripheral Anaerobic Blood Culture - Preliminary No growth in 2 days Assessment and Plan Plan 52-year-old white male presents with shortness of breath and cough Sepsis present on admission with tachycardia and tachypnea with source pneumonia Community-acquired pneumonia, multi lobar with hypoxia Influenza negative blood cultures shows no growth to date Continue with IV Rocephin and azithromycin Continue supportive care Wean O2 as tolerated , currently on 3 L, keep O2 sat greater than 92% DVT prophylaxis Lovenox Progress Note: Quality VTE Deep Vein Thrombosis/Pulmonary Embolism Present on Admission: No
[2018-08-20] MEDS: Azithromycin Inj 500 MG in Sodium Chlor 0.9% Inj 250 ML IV.SIG SCH (16:44)
[2018-08-20] MEDS: guaiFENesin/Dextromethorphan 200 MG/20 MG 10 ML UDC PO PRN (21:46)
[2018-08-20] MEDS: Enoxaparin Inj 40 MG/0.4 ML Syringe SQ SCH (21:47)
[2018-08-20] MEDS: Zolpidem Tartrate 5 MG Tablet PO PRN (21:47)
[2018-08-21] MEDS: guaiFENesin/Dextromethorphan 200 MG/20 MG 10 ML UDC PO PRN ×3 (03:16→20:20)
[2018-08-21] MEDS: Sod Chloride 0.9% Inj 1,000 ML IV.CONT SCH ×3 (03:41→16:10)
[2018-08-21] MEDS: Azithromycin 250 MG Tablet PO SCH (08:22)
[2018-08-21] MEDS: Senna/Docusate Sodium 8.6/50 MG Tablet PO SCH ×2 (08:22→20:20)
[2018-08-21] MEDS: Benzonatate 100 MG Capsule PO PRN ×2 (11:22→20:20)
--- NOTE | 2018-08-21 14:31 | P.PNIM ---
Subjective Interval history: No complaint of dry cough. Still feels short of breath. No fevers or chills. No complaint of chest pain. Physical Exam Vital signs: Vital Signs 08/20/18 16:00 08/20/18 20:00 08/20/18 20:10 Temperature 98.1 F 97.8 F Pulse Rate 81 84 82 Respiratory Rate 14 17 Blood Pressure 133/93 H 138/87 Pulse Oximetry 100 94 L 08/20/18 23:40 08/21/18 00:19 08/21/18 03:40 Temperature 96.9 F L 96.0 F L Pulse Rate 77 74 72 Respiratory Rate 18 16 Blood Pressure 141/98 H 138/94 H Pulse Oximetry 96 08/21/18 04:00 08/21/18 08:00 08/21/18 12:00 Temperature 97.5 F L 98.4 F Pulse Rate 63 64 77 Respiratory Rate 16 14 Blood Pressure 146/103 H 120/89 Pulse Oximetry 96 97 Intake & Output 08/20/18 08/21/18 08/21/18 18:59 06:59 18:59 Intake Total 2100 / 2100 1480 / 1480 Output Total 800 / 800 900 / 900 Balance 1300 / 1300 580 / 580 Intake: IV 1350 / 1350 1000 / 1000 NS Inj 1,000 ML @ 75 mls/hr IV. 1000 / 1000 1000 / 1000 CONT .[id number] JACKIE Rx#:[id number] Azithromycin Inj 500 MG In NS 250 / 250 Inj 250 ML @ 250 mls/hr IV.SIG Q24H JACKIE Rx#:[id number] Rocephin Inj 1,000 MG In NS Inj 100 / 100 100 ML @ 200 mls/hr IV.SIG Q24H JACKIE Rx#:[id number] Oral 750 / 750 480 / 480 Output: Urine 800 / 800 900 / 900 Other: Date of Last Bowel Movement 08/20/18 Narrative: GENERAL: Thin white male laying in bed in no acute distress CARDIOVASCULAR: Regular rate and rhythm RESPIRATORY: Patient with few rhonchi and wheezes bilaterally. GASTROINTESTINAL: Abdomen soft, non-tender, nondistended. Normoactive bowel sounds MUSCULOSKELETAL: No cyanosis, or edema. Neuro: Alert and oriented x3 Results Labs CBC & Chem 7: 08/20/18 05:21 08/20/18 05:21 Labs: Microbiology 08/18/18 14:47 Blood - Peripheral Aerobic Blood Culture - Preliminary No growth in 3 days 08/18/18 14:47 Blood - Peripheral Anaerobic Blood Culture - Preliminary No growth in 3 days 08/18/18 14:47 Blood - Peripheral Aerobic Blood Culture - Preliminary No growth in 3 days 08/18/18 14:47 Blood - Peripheral Anaerobic Blood Culture - Preliminary No growth in 3 days Assessment and Plan Plan 52-year-old white male presents with shortness of breath and cough Sepsis present on admission with tachycardia and tachypnea with source communicating acquired pneumonia -sepsis now resolved Community-acquired pneumonia, multi lobar with hypoxia Influenza negative blood cultures shows no growth to date Continue with IV Rocephin and azithromycin Continue supportive care Wean O2 as tolerated , currently on 3 L, keep O2 sat greater than 92% Walk fit test today DVT prophylaxis Lovenox No payer source for oxygen, will continue to work towards weaning off oxygen Progress Note: Quality VTE Deep Vein Thrombosis/Pulmonary Embolism Present on Admission: No
[2018-08-21] MEDS: Enoxaparin Inj 40 MG/0.4 ML Syringe SQ SCH (20:20)
[2018-08-21] MEDS: Zolpidem Tartrate 5 MG Tablet PO PRN (20:20)
[2018-08-22] MEDS: Sod Chloride 0.9% Inj 1,000 ML IV.CONT SCH ×2 (01:19→05:26)
[2018-08-22] MEDS: Benzonatate 100 MG Capsule PO PRN ×3 (03:59→20:49)
[2018-08-22] MEDS: guaiFENesin/Dextromethorphan 200 MG/20 MG 10 ML UDC PO PRN ×4 (03:59→20:49)
[2018-08-22] MEDS: Azithromycin 250 MG Tablet PO SCH (08:48)
[2018-08-22] MEDS: Senna/Docusate Sodium 8.6/50 MG Tablet PO SCH ×2 (08:48→20:49)
[2018-08-22] MEDS: hydroCHLOROthiazide 25 MG Tablet PO SCH (09:32)
--- NOTE | 2018-08-22 12:32 | P.PNIM ---
Subjective Interval history: Still with dry cough and needing oxygen. Not short of breath on oxygen. No fevers or chills. Physical Exam Vital signs: Vital Signs 08/21/18 16:00 08/21/18 18:00 08/21/18 20:00 Temperature 98.2 F 97.2 F L Pulse Rate 76 84 Respiratory Rate 14 18 Blood Pressure 127/88 141/83 H Pulse Oximetry 99 97 Pulse Oximetry [Exertion on Room Air] 87 L Pulse Oximetry [Exertion with Oxygen] 93 L Pulse Oximetry [Resting on Room Air] 98 Pulse Oximetry [Resting with Oxygen] 96 08/21/18 20:09 08/22/18 00:00 08/22/18 04:00 Temperature 97.3 F L 97.4 F L Pulse Rate 68 67 Respiratory Rate 18 16 Blood Pressure 146/99 H 134/99 H Pulse Oximetry 98 97 98 Pulse Oximetry [Exertion on Room Air] Pulse Oximetry [Exertion with Oxygen] Pulse Oximetry [Resting on Room Air] Pulse Oximetry [Resting with Oxygen] 08/22/18 08:00 Temperature 97.4 F L Pulse Rate 68 Respiratory Rate 18 Blood Pressure 136/96 H Pulse Oximetry 100 Pulse Oximetry [Exertion on Room Air] Pulse Oximetry [Exertion with Oxygen] Pulse Oximetry [Resting on Room Air] Pulse Oximetry [Resting with Oxygen] Intake & Output 08/21/18 08/22/18 08/22/18 18:59 06:59 18:59 Intake Total 1820 / 1820 1360 / 1360 400 / 400 Output Total 800 / 800 1025 / 1025 Balance 1020 / 1020 335 / 335 400 / 400 Weight 61.3 kg Intake: IV 1100 / 1100 1000 / 1000 400 / 400 NS Inj 1,000 ML @ 75 mls/hr IV. 1000 / 1000 1000 / 1000 400 / 400 CONT .[id number] JACKIE Rx#:[id number] Rocephin Inj 1,000 MG In NS Inj 100 / 100 100 ML @ 200 mls/hr IV.SIG Q24H JACKIE Rx#:[id number] Oral 720 / 720 360 / 360 Output: Urine 800 / 800 1025 / 1025 Other: Date of Last Bowel Movement 08/20/18 Narrative: GENERAL: Thin white male sitting up in bed in no acute distress CARDIOVASCULAR: Regular rate and rhythm RESPIRATORY: Patient with few rhonchi and wheezes bilaterally. GASTROINTESTINAL: Abdomen soft, non-tender, nondistended. Normoactive bowel sounds MUSCULOSKELETAL: No cyanosis, or edema. Neuro: Alert and oriented x3 Results Labs CBC & Chem 7: 08/20/18 05:21 08/20/18 05:21 Labs: Microbiology 08/18/18 14:47 Blood - Peripheral Aerobic Blood Culture - Preliminary No growth in 4 days 08/18/18 14:47 Blood - Peripheral Anaerobic Blood Culture - Preliminary No growth in 4 days 08/18/18 14:47 Blood - Peripheral Aerobic Blood Culture - Preliminary No growth in 4 days 08/18/18 14:47 Blood - Peripheral Anaerobic Blood Culture - Preliminary No growth in 4 days Assessment and Plan Plan 52-year-old white male presents with shortness of breath and cough Sepsis present on admission with tachycardia and tachypnea with source community acquired pneumonia -sepsis now resolved Community-acquired pneumonia, multi lobar with hypoxia Influenza negative blood cultures shows no growth to date Continue with IV Rocephin and azithromycin Continue supportive care Wean O2 as tolerated , currently on 3 L, keep O2 sat greater than 92% O2 sat dropped to 87% on room air walk test DVT prophylaxis Lovenox No payer source for oxygen, will continue to work towards weaning off oxygen Progress Note: Quality VTE Deep Vein Thrombosis/Pulmonary Embolism Present on Admission: No
[2018-08-22] MEDS: Enoxaparin Inj 40 MG/0.4 ML Syringe SQ SCH (20:49)
[2018-08-22] MEDS: Zolpidem Tartrate 5 MG Tablet PO PRN (22:57)
[2018-08-23] MEDS: Benzonatate 100 MG Capsule PO PRN ×2 (08:27→16:52)
[2018-08-23] MEDS: Azithromycin 250 MG Tablet PO SCH (08:28)
[2018-08-23] MEDS: guaiFENesin/Dextromethorphan 200 MG/20 MG 10 ML UDC PO PRN ×3 (08:28→21:20)
[2018-08-23] MEDS: Senna/Docusate Sodium 8.6/50 MG Tablet PO SCH ×2 (08:28→21:17)
[2018-08-23] MEDS: hydroCHLOROthiazide 25 MG Tablet PO SCH (09:23)
--- NOTE | 2018-08-23 10:14 | P.PNIM ---
Subjective Interval history: Patient reports still short of breath when she he ambulates to the bathroom, dry cough. No fevers or chills. Physical Exam Vital signs: Vital Signs 08/22/18 12:00 08/22/18 16:00 08/22/18 20:00 Temperature 97.6 F 97.9 F 98 F Pulse Rate 75 75 79 Respiratory Rate 18 18 14 Blood Pressure 127/73 129/96 H 126/90 Pulse Oximetry 96 98 99 08/23/18 00:00 08/23/18 04:00 Temperature 98.8 F 97.9 F Pulse Rate 84 71 Respiratory Rate 16 15 Blood Pressure 136/64 108/69 Pulse Oximetry 95 98 Intake & Output 08/22/18 08/23/18 08/23/18 18:59 06:59 18:59 Intake Total 1460 / 1460 420 / 420 Output Total 1575 / 1575 Balance -115 / -115 420 / 420 Weight 60.1 kg Intake: IV 500 / 500 NS Inj 1,000 ML @ 75 mls/hr IV. 400 / 400 CONT .[id number] JACKIE Rx#:[id number] Rocephin Inj 1,000 MG In NS Inj 100 / 100 100 ML @ 200 mls/hr IV.SIG Q24H JACKIE Rx#:[id number] Oral 960 / 960 420 / 420 Output: Urine 1575 / 1575 Other: # Voids 4 # Bowel Movements 5 3 Narrative: GENERAL: Thin white male sitting up in bed in no acute distress CARDIOVASCULAR: Regular rate and rhythm RESPIRATORY: Patient with few rhonchi and wheezes bilaterally. GASTROINTESTINAL: Abdomen soft, non-tender, nondistended. Normoactive bowel sounds MUSCULOSKELETAL: No cyanosis, or edema. Neuro: Alert and oriented x3 Results Labs CBC & Chem 7: 08/20/18 05:21 08/20/18 05:21 Labs: Microbiology 08/18/18 14:47 Blood - Peripheral Aerobic Blood Culture - Preliminary No growth in 4 days 08/18/18 14:47 Blood - Peripheral Anaerobic Blood Culture - Preliminary No growth in 4 days 08/18/18 14:47 Blood - Peripheral Aerobic Blood Culture - Preliminary No growth in 4 days 08/18/18 14:47 Blood - Peripheral Anaerobic Blood Culture - Preliminary No growth in 4 days Assessment and Plan Plan 52-year-old white male presents with shortness of breath and cough Sepsis present on admission with tachycardia and tachypnea with source community acquired pneumonia -sepsis now resolved Community-acquired pneumonia, multilobar with hypoxia Influenza negative blood cultures shows no growth to date Continue with IV Rocephin and azithromycin Continue supportive care; Robitussin-DM as needed for cough Wean O2 as tolerated , currently on 3 L, keep O2 sat greater than 90% O2 sat dropped to 87% on room air walk test DVT prophylaxis Lovenox No payer source for oxygen, will continue to work towards weaning off oxygen Progress Note: Quality VTE Deep Vein Thrombosis/Pulmonary Embolism Present on Admission: No
[2018-08-23] MEDS: Enoxaparin Inj 40 MG/0.4 ML Syringe SQ SCH (21:17)
[2018-08-24] MEDS: Benzonatate 100 MG Capsule PO PRN ×3 (00:58→19:11)
[2018-08-24] MEDS: Zolpidem Tartrate 5 MG Tablet PO PRN ×2 (00:59→23:11)
[2018-08-24] MEDS: hydroCHLOROthiazide 25 MG Tablet PO SCH (08:58)
[2018-08-24] MEDS: guaiFENesin/Dextromethorphan 200 MG/20 MG 10 ML UDC PO PRN ×4 (08:59→23:11)
[2018-08-24] MEDS: Senna/Docusate Sodium 8.6/50 MG Tablet PO SCH ×2 (08:59→21:24)
[2018-08-24] MEDS: Azithromycin 250 MG Tablet PO SCH (08:59)
--- NOTE | 2018-08-24 14:58 | P.PNIM ---
Physical Exam Vital signs: Vital Signs 08/23/18 16:00 08/23/18 17:39 08/23/18 20:00 Temperature 98.0 F 97.5 F L Pulse Rate 80 87 Respiratory Rate 20 17 Blood Pressure 123/78 128/88 Pulse Oximetry 97 92 L 96 08/24/18 00:00 08/24/18 04:00 08/24/18 08:00 Temperature 98.0 F 97.8 F 97.3 F L Pulse Rate 81 71 75 Respiratory Rate 17 15 18 Blood Pressure 119/82 103/70 103/74 Pulse Oximetry 96 98 94 L 08/24/18 09:05 08/24/18 12:00 Temperature 97.1 F L Pulse Rate 85 Respiratory Rate 18 Blood Pressure 106/77 Pulse Oximetry 99 97 Intake & Output 08/23/18 08/24/18 08/24/18 18:59 06:59 18:59 Intake Total 580 / 580 240 / 240 Balance 580 / 580 240 / 240 Weight 59.4 kg Intake: IV 100 / 100 Rocephin Inj 1,000 MG In NS Inj 100 / 100 100 ML @ 200 mls/hr IV.SIG Q24H JACKIE Rx#:[id number] Oral 480 / 480 240 / 240 Other: # Voids 5 4 Date of Last Bowel Movement 08/23/18 08/23/18 # Bowel Movements 3 1 Narrative: GENERAL: Thin white male sitting up in bed in no acute distress CARDIOVASCULAR: Regular rate and rhythm RESPIRATORY: with few wheezes bilaterally. GASTROINTESTINAL: Abdomen soft, non-tender, nondistended. Normoactive bowel sounds MUSCULOSKELETAL: No cyanosis, or edema. Neuro: Alert and oriented x3 Results Labs CBC & Chem 7: 08/20/18 05:21 08/20/18 05:21 Labs: Microbiology 08/18/18 14:47 Blood - Peripheral Aerobic Blood Culture - Final No growth in 5 days 08/18/18 14:47 Blood - Peripheral Anaerobic Blood Culture - Final No growth in 5 days 08/18/18 14:47 Blood - Peripheral Aerobic Blood Culture - Final No growth in 5 days 08/18/18 14:47 Blood - Peripheral Anaerobic Blood Culture - Final No growth in 5 days Assessment and Plan Plan 52-year-old white male presents with shortness of breath and cough Sepsis present on admission with tachycardia and tachypnea with source community acquired pneumonia -sepsis now resolved Community-acquired pneumonia, multilobar with hypoxia Influenza negative blood cultures shows no growth to date Continue with IV Rocephin and azithromycin transition to IV solumedrol to PO prednisone Continue supportive care; Robitussin-DM as needed for cough Wean O2 as tolerated , currently on 1 L, keep O2 sat greater than 90% repeat walk test in am DVT prophylaxis Lovenox No payer source for oxygen, will continue to work towards weaning off oxygen Progress Note: Quality VTE Deep Vein Thrombosis/Pulmonary Embolism Present on Admission: No
[2018-08-24] MEDS: predniSONE 20 MG Tablet PO SCH (15:56)
[2018-08-24 21:08] VITALS: RESP 17
[2018-08-24] MEDS: Enoxaparin Inj 40 MG/0.4 ML Syringe SQ SCH (21:24)
[2018-08-25 05:46] VITALS: BP 101/70; PULSE 73; TEMP 97.8; O2SAT 93
[2018-08-25] MEDS: guaiFENesin/Dextromethorphan 200 MG/20 MG 10 ML UDC PO PRN (09:12)
[2018-08-25] MEDS: Azithromycin 250 MG Tablet PO SCH (09:12)
[2018-08-25] MEDS: hydroCHLOROthiazide 25 MG Tablet PO SCH (09:12)
[2018-08-25] MEDS: predniSONE 20 MG Tablet PO SCH (09:14)
[2018-08-25] MEDS: Senna/Docusate Sodium 8.6/50 MG Tablet PO SCH (09:14)
--- NOTE | 2018-08-25 10:33 | P.DS ---
DS: Providers Date of admission: 08/18/18 17:34 Primary care physician: No Primary Care Physician Brief History from admission: 52-year-old male with PMH of HTN, homelessness presents to the ED via EMS for evaluation of 4-day history of subjective fevers , chills, cough productive of yellow-green phlegm, sinus congestion, body aches. Patient endorses pleuritic type chest pain and dyspnea on exertion. He endorses palpitations. He endorses nausea. He denies abdominal pain, changes in bowel habits, dysuria. He is a non-smoker. He does not receive this years flu vaccine. EMS administered Solu-Medrol and 1 albuterol nebulizer treatment in route. Patient states that the chest pain is now resolved. He denies illicit drug use. He endorses occasional alcohol use, last drank alcohol 2 days ago. Found with PNA started on IV abx , patient also with sepsis criteria on admission. DS: Diagnosis Discharge Diagnosis (1) Sepsis: Status: Acute Diagnosis: Principal (2) Community acquired pneumonia: Status: Acute Diagnosis: Principal (3) Acute respiratory failure with hypoxia: Status: Acute Diagnosis: Principal DS: Summary 52-year-old white male was admitted for shortness of breath and cough and found to have sepsis on admission with community acquired pneumonia and placed on IV ceftriaxone and azithromycin. Patient had negative blood cultures along with negative influenza. Supportive care was given. Patient was placed on 3 L oxygen and slowly weaned off of oxygen during the hospitalization. At this time , patient will be transitioned home with p.o. steroids, antibiotics, and albuterol inhaler. Follow-up with primary care physician Time Spent with Patient Total time spent providing and/or coordinating discharge services: Less than 30 minutes Quality: VTE Deep Vein Thrombosis/Pulmonary Embolism Present on Admission: No Exam Narrative Exam Narrative: well-developed thin male in no acute distress Cardiovascular regular rate and rhythm Lungsrelatively clear to auscultation bilaterally Neurological exam alert and oriented x3, moves all 4 extremities Results Impressions ITS Impressions Chest X-Ray 08/18/18 14:39 CONCLUSION: The lungs are clear. Chest CTA 08/18/18 14:44 CONCLUSION: 1. No evidence of pulmonary was. 2. Bilateral dependent lower lobe consolidation left greater than right. Pleural-based area in the posterior left lower lobe is also likely consolidation or atelectasis. Discharge Plan Discharge Disposition Patient Disposition: Discharge Home Discharge Condition Condition: Good Discharge Order Discharge Orders: Discharge Order (Routine); Ordered 08/25/18 Ordered By: Keeley Jerez Physicians Team Primary Care Provider: Primary Care Vanessa King Attending Provider: Keeley Jerez Rxs /Orders / Referrals /Forms Prescriptions: New albuterol sulfate 90 mcg/actuation HFA aerosol inhaler 2 inh INHALATION Q4-6H PRN (Reason: shortness of breath or wheezing) Qty: 8 RF: 0 prednisone 20 mg tablet 20 mg PO DAILY Qty: 5 RF: 0 cefuroxime axetil 500 mg Tablet 500 mg PO Q12HR Qty: 6 RF: 0 Referrals: [facility] [Outside] - See Instructions ( Please call the physician's office to book the appointment to be seen within 1 week. [facility]MENT [facility] (NEED MEDICAL RECORD INFORMATION) ) Primary Care Vanessa King [Primary Care Provider] - See Instructions Discharge Instructions Patient Printed Instructions: Cefuroxime (By mouth), Prednisone (By mouth), Ipratropium/Albuterol (By breathing), Viral Pneumonia (DC) Post Discharge Care Plan Care Plan Goals: Discharge Care Plan Goals for Pneumonia You have been diagnosed with pneumonia. This is a serious lung infection. Most cases of pneumonia are caused by bacteria. Pneumonia most often occurs in older adults, young children, and people with chronic health problems. Directions to Meet your Goals: 1. Home care: * Take your medicine exactly as directed. Dont skip doses. Continue taking your antibiotics as until they are all gone, even if you start to feel better. This will prevent the pneumonia from coming back. * Drink at least 8 glasses of water daily, unless directed otherwise. This helps to loosen and thin secretions so that you can cough them up. * Use a cool-mist humidifier in your bedroom. Be sure to clean the humidifier daily. * Dont use medicines to suppress your cough unless your cough is dry, painful, or interferes with your sleep. Coughing up mucus is normal. You may use an expectorant if your doctor says its okay. * You can use warm compresses or a heating pad on the lowest setting to relieve chest discomfort. Use several times a day for 15-20 minutes at a time. To prevent injury to your skin, set the temperature to warm, not hot. Dont put the compress or pad directly on your skin. Make certain it has a cover or wrap it in a towel. This is to prevent skin beltran. * Get plenty of rest until your fever, shortness of breath, and chest pain go away. * Plan to get a flu shot every year. The flu is a common cause of pneumonia. Getting a flu shot every year can help prevent both the flu and pneumonia. 2. Getting the pneumococcal vaccine: * Talk with your doctor about getting the pneumococcal vaccine. Pneumococcal pneumonia is caused by bacteria that spread from person to person. It can cause minor problems, such as ear infections. But it can also turn into life- threatening illnesses of the lungs (pneumonia), the covering of the brain and spinal cord (meningitis), and the blood (bacteremia). * Make sure to ask your doctor if you should have the vaccine. Children under 2 years of age, adults over age 65, people with certain health conditions, and smokers are at the highest risk of pneumococcal disease. This vaccine can help prevent pneumococcal disease in both adults and children. 3. Follow-up care: Do Not miss your follow-up appointment. Keep up with all your appointments and yearly check ups 4. When to call your doctor: Call your doctor immediately if you have any of the following: Fever of 100.4F (38C) or higher, or as directed by your healthcare provider Mucus from the lungs (sputum) thats yellow, green, bloody, or smells bad Vomiting Any symptoms that get worse 5. Call 911: Call 911 right away if you have any of the following: Chest pain Trouble breathing Blue lips or fingernails Status ED Status: Left Department
== END 2018-08-25 10:53 | disposition home or self-care (01) | DRG 871 ==
LOC: NEPE 14:13 → NEDA 17:34 → N04 18:57
PROVIDERS: ADMIT Family Medicine; ATTEND Family Medicine
DX: A41.9 Sepsis, unspecified organism; F32.9 Major depressive disorder, single episode, unspecified; Z59.0 Homelessness; I10 Essential (primary) hypertension; R00.0 Tachycardia, unspecified; J96.01 Acute respiratory failure with hypoxia; J18.9 Pneumonia, unspecified organism; F41.9 Anxiety disorder, unspecified
CPT/HCPCS: 71010; 71045; 71275; 80053; 80069; 82948; 82962; 83036; 83605; 83735; 84484; 85025; 87040; 87275; 87276; 87804; 90765; 90775; 93005; 94150; 94618; 94620; 94667; 96365; 96375; 97110; 97116; 97162; 99285; J0456; J0696; J1650; J7030; J7050; J7506; J7512; Q9967